=== PATIENT | female | born 1965 | race Caucasian/White ===

== ENCOUNTER 2020-06-29 09:15 | Outpatient (REF) | payer BC, SELFPAY ==
[2020-06-29 10:22] LABS: MANUAL DIFF FLAG NO
[2020-06-29 10:27] LABS: Basophils Percent Auto 0.8 % (0-2); Eosinophils Absolute Auto 0.2 X10*3/uL (0.0-0.4); Eosinophils Percent Auto 3.4 % (0-4); Hematocrit 42.8 % (37-47); Imm Gran Abs Auto 0.01 X10*3/uL (0.00-0.03); Imm Gran Pct Auto 0.2 % (0.0-0.4); Lymphocytes Percent Auto 38.5 % (20-40); Mean Corpuscular HGB Conc 32.7 g/dl (31.0-35.0); Mean Corpuscular Hemoglobin 29.2 pg (27.0-33.0); Mean Corpuscular Volume 89.2 fL (80-98); Mean Platelet Volume 10.1 fL (9.4-12.3); Monocytes Absolute Auto 0.4 X10*3/uL (0.1-1.2); Neutrophils Absolute Auto 2.6 X10*3/uL (2.0-8.3); Neutrophils Percent Auto 49.1 % (45-73); Platelet Count 259 X10*3/uL (160-400); White Blood Count 5.3 X10*3/uL (4.8-10.8)
[2020-06-29 10:52] LABS: Alanine Aminotransferase 84 U/L (0-31); Albumin Level 4.2 g/dL (3.5-5.0); Alkaline Phosphatase 67 U/L (39-117); Anion Gap 13 (12-20); Aspartate Amino Transferase 29 U/L (5-31); Bilirubin Total 0.5 mg/dL (0.0-1.0); Blood Urea Nitrogen 14 mg/dL (9-16); Calcium 8.6 mg/dL (8.4-10.2); Carbon Dioxide 26 mmol/L (22-29); Chloride 105 mmol/L (96-108); Cholesterol 162 mg/dL; Estimated Glomerular Filt Rate > 60; Glucose Fasting 139 mg/dL (60-99); HDL Cholesterol 41 mg/dL; LDL Cholesterol Calculated 89 mg/dl; Potassium 4.5 mmol/l (3.3-5.1); Sodium 139 mmol/L (135-145); Total Protein 7.2 g/dL (6.5-8.0); Triglycerides 160 mg/dL
== END 2020-06-29 09:16 | disposition home or self-care (01) ==
LOC: HO.LAB 09:15
PROVIDERS: PCP Internal Medicine Medical Oncology; Visit Provider Internal Medicine Medical Oncology
DX: K58.9 Irritable bowel syndrome, unspecified (principal); R60.9 Edema, unspecified; E78.5 Hyperlipidemia, unspecified; Z87.19 Personal history of other diseases of the digestive system
CPT/HCPCS: 36415; 80053; 80061; 85025

== ENCOUNTER 2020-10-11 13:44 | Outpatient (REF) | payer BC, SELFPAY ==
[2020-10-11 15:11] LABS: MANUAL DIFF FLAG NO
[2020-10-11 15:22] LABS: Basophils Absolute Auto 0.1 X10*3/uL (0.0-0.2); Basophils Percent Auto 0.7 % (0-2); Eosinophils Absolute Auto 0.1 X10*3/uL (0.0-0.4); Hematocrit 43.2 % (37-47); Hemoglobin 14.1 g/dl (12.0-16.0); Imm Gran Abs Auto 0.04 X10*3/uL (0.00-0.03); Imm Gran Pct Auto 0.6 % (0.0-0.4); Lymphocytes Absolute Auto 2.6 X10*3/uL (1.2-4.9); Lymphocytes Percent Auto 38.1 % (20-40); Mean Corpuscular HGB Conc 32.6 g/dl (31.0-35.0); Mean Corpuscular Hemoglobin 28.9 pg (27.0-33.0); Mean Corpuscular Volume 88.5 fL (80-98); Mean Platelet Volume 10.2 fL (9.4-12.3); Monocytes Absolute Auto 0.5 X10*3/uL (0.1-1.2); Monocytes Percent Auto 7.1 % (2-11); Neutrophils Absolute Auto 3.5 X10*3/uL (2.0-8.3); Neutrophils Percent Auto 51.5 % (45-73); Platelet Count 264 X10*3/uL (160-400); Red Blood Count 4.88 X10*6/uL (4.20-5.50); Red Cell Distribution Width 13.1 % (11.0-16.0); White Blood Count 6.9 X10*3/uL (4.8-10.8)
[2020-10-11 15:31] LABS: Alanine Aminotransferase 33 U/L (0-31); Albumin Level 4.2 g/dL (3.5-5.0); Alkaline Phosphatase 68 U/L (39-117); Anion Gap 14 (12-20); Aspartate Amino Transferase 24 U/L (5-31); Bilirubin Total 0.5 mg/dL (0.0-1.0); Blood Urea Nitrogen 12 mg/dL (9-16); Calcium 9.1 mg/dL (8.4-10.2); Carbon Dioxide 24 mmol/L (22-29); Chloride 104 mmol/L (96-108); Estimated Glomerular Filt Rate > 60; Glucose Random 105 mg/dL (60-115); Potassium 4.2 mmol/L (3.3-5.1); Sodium 138 mmol/L (135-145); Total Protein 7.4 g/dL (6.5-8.0)
[2020-10-11 16:28] LABS: Erythrocyte Sedimentation Rate 23 MM/HR (0-20)
== END 2020-10-11 13:45 | disposition home or self-care (01) ==
LOC: HO.LAB 13:44
PROVIDERS: PCP Internal Medicine Medical Oncology; Visit Provider Internal Medicine Medical Oncology
DX: R10.84 Generalized abdominal pain (principal); K58.9 Irritable bowel syndrome, unspecified
CPT/HCPCS: 36415; 80053; 85025; 85652

== ENCOUNTER 2020-11-29 07:39 | Outpatient (REF) | payer BC, SELFPAY ==
[2020-11-29 08:08] LABS: MANUAL DIFF FLAG NO
[2020-11-29 08:11] LABS: Basophils Absolute Auto 0.1 X10*3/uL (0.0-0.2); Basophils Percent Auto 0.9 % (0-2); Eosinophils Absolute Auto 0.2 X10*3/uL (0.0-0.4); Eosinophils Percent Auto 2.4 % (0-4); Hematocrit 43.1 % (37-47); Hemoglobin 13.9 g/dl (12.0-16.0); Imm Gran Abs Auto 0.02 X10*3/uL (0.00-0.03); Imm Gran Pct Auto 0.3 % (0.0-0.4); Lymphocytes Absolute Auto 2.4 X10*3/uL (1.2-4.9); Lymphocytes Percent Auto 35.9 % (20-40); Mean Corpuscular HGB Conc 32.3 g/dl (31.0-35.0); Mean Corpuscular Hemoglobin 28.9 pg (27.0-33.0); Mean Corpuscular Volume 89.6 fL (80-98); Mean Platelet Volume 9.8 fL (9.4-12.3); Monocytes Absolute Auto 0.5 X10*3/uL (0.1-1.2); Monocytes Percent Auto 7.9 % (2-11); Neutrophils Absolute Auto 3.6 X10*3/uL (2.0-8.3); Neutrophils Percent Auto 52.6 % (45-73); Platelet Count 279 X10*3/uL (160-400); Red Blood Count 4.81 X10*6/uL (4.20-5.50); Red Cell Distribution Width 13.4 % (11.0-16.0); White Blood Count 6.8 X10*3/uL (4.8-10.8)
[2020-11-29 08:50] LABS: Alanine Aminotransferase 42 U/L (0-31); Albumin Level 4.2 g/dL (3.5-5.0); Alkaline Phosphatase 72 U/L (39-117); Anion Gap 13 (12-20); Aspartate Amino Transferase 24 U/L (5-31); Bilirubin Total 0.6 mg/dL (0.0-1.0); Blood Urea Nitrogen 10 mg/dL (9-16); Calcium 9.3 mg/dL (8.4-10.2); Carbon Dioxide 27 mmol/L (22-29); Chloride 104 mmol/L (96-108); Cholesterol 164 mg/dL; Estimated Glomerular Filt Rate > 60; Glucose Fasting 139 mg/dL (60-99); HDL Cholesterol 44 mg/dL; LDL Cholesterol Calculated 94 mg/dl; Potassium 5.1 mmol/L (3.3-5.1); Sodium 139 mmol/L (135-145); Total Protein 7.2 g/dL (6.5-8.0); Triglycerides 131 mg/dL
== END 2020-11-29 07:40 | disposition home or self-care (01) ==
LOC: HO.LAB 07:39
PROVIDERS: PCP Internal Medicine Medical Oncology; Visit Provider Internal Medicine Medical Oncology
DX: K58.9 Irritable bowel syndrome, unspecified (principal); E78.5 Hyperlipidemia, unspecified; E66.01 Morbid (severe) obesity due to excess calories
CPT/HCPCS: 36415; 80053; 80061; 85025

== ENCOUNTER 2021-02-18 09:41 | Outpatient (REF) | payer BC, SELFPAY ==
[2021-02-18 10:53] LABS: Alanine Aminotransferase 36 U/L (0-31); Albumin Level 4.2 g/dL (3.5-5.0); Alkaline Phosphatase 75 U/L (39-117); Anion Gap 12 (12-20); Aspartate Amino Transferase 20 U/L (5-31); Bilirubin Total 0.5 mg/dL (0.0-1.0); Blood Urea Nitrogen 14 mg/dL (9-16); Calcium 9.7 mg/dL (8.4-10.2); Carbon Dioxide 29 mmol/L (22-29); Chloride 104 mmol/L (96-108); Estimated Glomerular Filt Rate > 60; Glucose Fasting 135 mg/dL (60-99); Sodium 140 mmol/L (135-145); Total Protein 7.2 g/dL (6.5-8.0)
[2021-02-18 11:01] LABS: Estimated Average Glucose 169 mg/dL; Hemoglobin A1c % 7.5 %
== END 2021-02-18 09:42 | disposition home or self-care (01) ==
LOC: HO.LAB 09:41
PROVIDERS: PCP Internal Medicine Medical Oncology; Visit Provider Internal Medicine Medical Oncology
DX: K58.9 Irritable bowel syndrome, unspecified (principal); E78.5 Hyperlipidemia, unspecified; E66.01 Morbid (severe) obesity due to excess calories
CPT/HCPCS: 36415; 80053; 83036

== ENCOUNTER 2021-03-01 16:19 | Outpatient (REF) | payer BC, SELFPAY ==
--- NOTE | ~2021-03-01 | MM_ITS ---
EXAMINATION: MM SCREENING DIGITAL BREAST TOMOSYNTHESIS, BILATERAL CLINICAL INFORMATION: Screening. Asymptomatic. The lifetime risk of breast cancer based on the Tyrer-Cuzick Model is 23.5%.%. Additional annual screening with breast MRI may be of benefit in women with a Score of 20% or greater. COMPARISON: Mammography: January 14, 2020 and studies dating back to February 24, 2014 TECHNIQUE: Digital breast tomosynthesis is performed in both the craniocaudal and mediolateral oblique views along with computer-aided detection (CAD). Synthesized 2D images are generated from the tomosynthesis. FINDINGS: There are scattered areas of fibroglandular density (ACR BI-RADS breast composition Category b). There are no significant masses, abnormal calcifications, or other abnormalities. MM/MM tomosynthesis screening BI IMPRESSION: There are no significant changes from prior study. ASSESSMENT: BI-RADS 1: Negative RECOMMENDATION: Routine annual mammography screening. This patient's information was entered into a reminder system with a target due date for their next mammogram.
== END 2021-03-01 16:20 | disposition home or self-care (01) ==
LOC: HO.MAMMO 16:19
PROVIDERS: PCP Internal Medicine Medical Oncology; Visit Provider Obstetrics & Gynecology Gynecology
DX: Z12.31 Encounter for screening mammogram for malignant neoplasm of breast (principal)
CPT/HCPCS: 77063; 77067

== ENCOUNTER 2021-06-05 07:12 | Outpatient (REF) | payer BC, SELFPAY ==
[2021-06-05 07:30] LABS: MANUAL DIFF FLAG NO
[2021-06-05 07:46] LABS: Basophils Percent Auto 0.6 % (0-2); Eosinophils Absolute Auto 0.2 X10*3/uL (0.0-0.4); Eosinophils Percent Auto 2.7 % (0-4); Hematocrit 43.7 % (37.0-47.0); Hemoglobin 14.1 g/dl (12.0-16.0); Imm Gran Abs Auto 0.01 X10*3/uL (0.00-0.03); Imm Gran Pct Auto 0.2 % (0.0-0.4); Lymphocytes Absolute Auto 2.8 X10*3/uL (1.2-4.9); Lymphocytes Percent Auto 45.5 % (20-40); Mean Corpuscular HGB Conc 32.3 g/dl (31.0-35.0); Mean Corpuscular Hemoglobin 28.6 pg (27.0-33.0); Mean Corpuscular Volume 88.6 fL (80.0-98.0); Mean Platelet Volume 10.3 fL (9.4-12.3); Monocytes Absolute Auto 0.5 X10*3/uL (0.1-1.2); Monocytes Percent Auto 7.4 % (2-11); Neutrophils Absolute Auto 2.7 x10*3/uL (2.0-8.3); Neutrophils Percent Auto 43.6 % (45-73); Platelet Count 255 X10*3/uL (160-400); Red Blood Count 4.93 X10*6/uL (4.20-5.50); Red Cell Distribution Width 13.3 % (11.0-16.0); White Blood Count 6.2 X10*3/uL (4.8-10.8)
[2021-06-05 07:55] LABS: Estimated Average Glucose 126 mg/dL
[2021-06-05 08:09] LABS: Alanine Aminotransferase 35 U/L (0-31); Alkaline Phosphatase 66 U/L (39-117); Anion Gap 10 (12-20); Aspartate Amino Transferase 18 U/L (5-31); Bilirubin Total 0.4 mg/dL (0.0-1.0); Blood Urea Nitrogen 14 mg/dL (9-16); Calcium 9.5 mg/dL (8.4-10.2); Carbon Dioxide 29 mmol/L (22-29); Chloride 107 mmol/L (96-108); Cholesterol 163 mg/dL; Estimated Glomerular Filt Rate > 60; Glucose Random 106 mg/dL (60-115); HDL Cholesterol 40 mg/dL; LDL Cholesterol Calculated 94 mg/dl; Potassium 4.4 mmol/L (3.3-5.1); Sodium 142 mmol/L (135-145); Triglycerides 145 mg/dL
== END 2021-06-05 07:13 | disposition home or self-care (01) ==
LOC: HO.LAB 07:12
PROVIDERS: PCP Internal Medicine Medical Oncology; Visit Provider Internal Medicine Medical Oncology
DX: K58.9 Irritable bowel syndrome, unspecified (principal); E78.5 Hyperlipidemia, unspecified; F32.9 Major depressive disorder, single episode, unspecified; E66.01 Morbid (severe) obesity due to excess calories; E11.9 Type 2 diabetes mellitus without complications
CPT/HCPCS: 36415; 80053; 80061; 82043; 83036; 85025

== ENCOUNTER → 2021-08-29 15:07 | Outpatient (BNVA) | payer BC, SELFPAY | PROVIDERS: PCP Internal Medicine Medical Oncology; Visit Provider Nurse Practitioner | DX: Z12.11 Encounter for screening for malignant neoplasm of colon (principal); Z80.0 Family history of malignant neoplasm of digestive organs ==

== ENCOUNTER 2021-09-16 08:57 | Outpatient (REF) | payer BC, SELFPAY ==
[2021-09-16 09:07] LABS: MANUAL DIFF FLAG NO
[2021-09-16 09:26] LABS: Basophils Percent Auto 0.7 % (0-2); Eosinophils Absolute Auto 0.2 X10*3/uL (0.0-0.4); Eosinophils Percent Auto 2.8 % (0-4); Imm Gran Abs Auto 0.01 X10*3/uL (0.00-0.03); Imm Gran Pct Auto 0.2 % (0.0-0.4); Lymphocytes Absolute Auto 2.6 X10*3/uL (1.2-4.9); Lymphocytes Percent Auto 47.6 % (20-40); Mean Corpuscular HGB Conc 31.8 g/dl (31.0-35.0); Mean Corpuscular Hemoglobin 28.5 pg (27.0-33.0); Mean Corpuscular Volume 89.4 fL (80.0-98.0); Mean Platelet Volume 10.5 fL (9.4-12.3); Monocytes Absolute Auto 0.5 X10*3/uL (0.1-1.2); Monocytes Percent Auto 8.7 % (2-11); Neutrophils Absolute Auto 2.2 x10*3/uL (2.0-8.3); Platelet Count 240 X10*3/uL (160-400); Red Blood Count 4.92 X10*6/uL (4.20-5.50); Red Cell Distribution Width 13.6 % (11.0-16.0); White Blood Count 5.4 X10*3/uL (4.8-10.8)
[2021-09-16 09:35] LABS: Estimated Average Glucose 117 mg/dL; Hemoglobin A1c % 5.7 %
[2021-09-16 10:01] LABS: Alanine Aminotransferase 44 U/L (0-31); Alkaline Phosphatase 58 U/L (39-117); Anion Gap 11 (12-20); Aspartate Amino Transferase 21 U/L (5-31); Bilirubin Total 0.6 mg/dL (0.0-1.0); Blood Urea Nitrogen 14 mg/dL (9-16); Calcium 9.3 mg/dL (8.4-10.2); Carbon Dioxide 27 mmol/L (22-29); Chloride 107 mmol/L (96-108); Cholesterol 171 mg/dL; Estimated Glomerular Filt Rate > 60; Glucose Fasting 101 mg/dL (60-99); HDL Cholesterol 41 mg/dL; LDL Cholesterol Calculated 104 mg/dl; Potassium 4.4 mmol/L (3.3-5.1); Sodium 141 mmol/L (135-145); Total Protein 6.9 g/dL (6.5-8.0); Triglycerides 132 mg/dL
== END 2021-09-16 08:58 | disposition home or self-care (01) ==
LOC: HO.LAB 08:57
PROVIDERS: PCP Internal Medicine Medical Oncology; Visit Provider Internal Medicine Medical Oncology
DX: E11.9 Type 2 diabetes mellitus without complications (principal); E78.5 Hyperlipidemia, unspecified
CPT/HCPCS: 36415; 80053; 80061; 83036; 85025

== ENCOUNTER 2022-02-27 07:56 | Day surgery (SDC) | payer BC, SELFPAY ==
[2022-02-22 12:19] VITALS: BMI 37.3
--- NOTE | 2022-02-26 11:46 | P.CONAN_ITS ---
Documented by User: Mona Khan NP 02/26/22 11:50 HPI - Anesthesia Eval Consult details Narrative: 57yo F for Colonoscopy PMFSH Active Problems Active Problems: All Active Problems (Updated 02/22/22 @ 12:17 by Bree Kinney RN) Morbid obesity (Acute) Diabetes (Acute) High cholesterol (Acute) Depression with anxiety (Acute) Panic attacks (Acute) Chronic low back pain with bilateral sciatica (Acute) Ganglion cyst (Acute) Colon cancer screening (Acute) Family history of colon cancer (Acute) Past Medical History Medical History Anxiety Back pain Depression Diabetes Diverticulitis Elevated cholesterol Panic attacks Surgical History Surgical History H/O breast surgery H/O colonoscopy History of back surgery History of surgery Hx of dilation and curettage Social History Social History Patient Tobacco Use Status: Never used Tobacco Use of substances other than those prescribed or required for medical reasons: No Advance Directives: No Advance Directives Information Provided: Yes Recently lost weight without trying: No Meds Allergies Allergy/AdvReac Type Severity Reaction Status Date / Time No Known Allergies Allergy Unverified 08/29/21 15:20 Home Medications Medication Instructions Recorded Confirmed Last Taken Type gabapentin 600 mg tablet,extended 1,800 mg PO QPM 08/29/21 Unknown History release 24 hr (Gralise) metformin 500 mg tablet 500 mg PO DAILY 08/29/21 Unknown History norethindrone acetate 5 mg tablet 5 mg PO DAILY 08/29/21 Unknown History Exam Exam Date and Time: February 26, 2022 1146 Height,Weight and Vital Signs: Height 5 ft 2 in Weight 92.533 kg Pertinent Lab Results Pertinent Lab Results: Laboratory Tests 09/16/21 09/16/21 09:05 09:05 WBC 5.4 Hgb 14.0 Hct 44.0 Plt Count 240 Sodium 141 Potassium 4.4 Chloride 107 Carbon Dioxide 27 BUN 14 Creatinine 0.70 Assessment and Plan Assessment Anesthesia Assessment: Chart Reviewed Documented by User: Ramon Jo MD 02/27/22 09:15 [facility] Past Medical History Medical History Anxiety Back pain Depression Diabetes Diverticulitis Elevated cholesterol Panic attacks Family History Family history of problems with anesthesia: No Surgical History Surgical History H/O breast surgery H/O colonoscopy History of back surgery History of surgery Hx of dilation and curettage History of Problems with Anesthesia: No Social History Social History Patient Tobacco Use Status: Never used Tobacco Use of substances other than those prescribed or required for medical reasons: No Advance Directives: No Advance Directives Information Provided: Yes Recently lost weight without trying: No Meds Allergies Allergy/AdvReac Type Severity Reaction Status Date / Time No Known Allergies Allergy Unverified 08/29/21 15:20 Home Medications Medication Instructions Recorded Confirmed Last Taken Type gabapentin 600 mg tablet,extended 1,800 mg PO QPM 08/29/21 Unknown History release 24 hr (Gralise) metformin 500 mg tablet 500 mg PO DAILY 08/29/21 Unknown History norethindrone acetate 5 mg tablet 5 mg PO DAILY 08/29/21 Unknown History Exam Airway Mallampati Class: III TM Dist: >3cm Neck ROM: Full Loose/Missing/Broken Teeth: No Heart: rrr Lungs: clear Assessment and Plan Final Anesthetic Review Family History of Problems with Anesthesia: No History of Problems with Anesthesia: No ASA Class: II Final Preanesthetic Review: No Changes in Pt Med Stat, Meds/Allgs Chart Reviewed, Consent Obtained/Reviewed and Anes Risks/Benef Reviewed Patient Risk: Intermediate Procedure Risk: Low Anesthetic Plan Anesthetic Plan: MAC: Disposition: Standard PACU
[2022-02-27 08:07] VITALS: BP 137/62; PULSE 77; RESP 16; TEMP 36.6; O2SAT 97; BMI 36.6
--- NOTE | 2022-02-27 08:24 | MHC.SHP ---
Pre-Procedural Eval Section A Date of Service: 02/27/22 Section B Chief Complaint: screenig, fam hx of neoplasm Details of Present Illness: dad with crc Relevant Family History (Specify if Yes): Yes Relevant Social History: None Present Medications: see Short Stay Collaborative assessment Medical History: Significant History (Anxiety Back pain Depression Diabetes Diverticulitis Elevated cholesterol Panic attacks) History of Previous Operations: Relevant previous surgery/procedure and date(s) (Breast reduction bilateral Lumbar discectomy L4-L5 Tonsillectomy & adenoids) Allergies: Allergies Allergy/AdvReac Type Severity Reaction Status Date / Time No Known Allergies Allergy Unverified 08/29/21 15:20 Review of Systems Sugical H&P ROS: Negative: Constitution, Cardiovascular, Respiratory, Neurological, Psychiatric, Hem-Onc, Allergic/Immunologic, Gastrointestinal, Genitourinary, Musculoskeletal, Integumentary, Endocrine and Eyes/Ears/Nose/Throat Exam Surgical H&P Exam: Normal: HEENT (high bmi), Normal: Heart, Normal: Lungs, Normal: Extremities, Normal: Abdomen, Normal: Skin and Normal: Neurological Plan Diagnosis/Plan: Unchanged I have reviewed the history and physical and performed a pertinent physical examination on my patient. No changes have occurred unless specified.
[2022-02-27 08:30] LABS: Glucose, Whole Blood 88 mg/dL (60-115)
--- NOTE | 2022-02-27 08:31 | W.PM.OPN ---
Operative Note Operative Note Date of Service: 02/27/22 Narrative: Operative Information Procedure Description: Colonoscopy Indication: FH of CRC, screening Anesthesia: MAC COLONOSCOPY Instrument: Olympus variable stiffness ADULT scope 190L Colonoscopy Monitoring: Vital signs and clinical assessment, continuous EKG monitoring, Pulse oximetry, Carbon Dioxide monitoring and blood pressure monitoring were done throughout the procedure. Colon withdrawal time was 6 minutes. Procedure: The patient was placed in the left lateral decubitis position and pre-procedure medications were administered. After a digital rectal examination of the ano-rectum, the video colonoscope was inserted into the rectum and advanced through the colon to the cecum/TI. The colonoscope was slowly withdrawn in a retrograde panoramic fashion and the colon mucosa was carefully examined including a retroflexed view of the rectum. Findings and interventions are described below. Procedure Difficulty: easy Findings: Terminal Ileum-normal Right sided retroflexion--normal Cecum:normal Ascending Colon: normal Transverse Colon -normal Descending Colon:normal Sigmoid Colon: normal Rectum: Retroflexion with medium sized internal hemorrhoids, grade I Anorectum - normal Colon preparation: [place] Bowel Preparation Scale Right colon; 3 Transverse colon: 3 Left colon; 3 (0 = Unprepared colon segment with mucosa not seen due to solid stool that cannot be cleared. 1 = Portion of mucosa of the colon segment seen, but other areas of the colon segment not well seen due to staining, residual stool and/or opaque liquid. 2 = Minor amount of residual staining, small fragments of stool and/or opaque liquid, but mucosa of colon segment seen well. 3 = Entire mucosa of colon segment seen well with no residual staining, small fragments of stool or opaque liquid) Impression and Post Procedure Diagnosis: internal hemorrhoids Plan: High fiber diet leaflet Avoid straining at stool, epsom salts and sitz bath, anusol supps or cream Repeat Colonoscopy in 5 years due to FH of CRC or earlier if clinically indicated Above findings were reviewed with the patient and relevant handouts were provided if indicated.
[2022-02-27 09:53] VITALS: BP 107/58; PULSE 75; RESP 26; TEMP 36.1; O2SAT 98
[2022-02-27 10:08] VITALS: BP 130/68; PULSE 66; RESP 19; TEMP 36.3; O2SAT 99
== END 2022-02-27 11:18 | disposition home or self-care (01) ==
PROVIDERS: PCP Internal Medicine Medical Oncology; Visit Provider Internal Medicine Gastroenterology
PROC: 0DJD8ZZ Inspection of Lower Intestinal Tract, Via Natural or Artificial Opening Endoscopic (ICD-10-PCS; CPT 45378; principal; 2022-02-27 09:10)
DX: Z12.11 Encounter for screening for malignant neoplasm of colon (principal); Z80.0 Family history of malignant neoplasm of digestive organs; K64.0 First degree hemorrhoids; K58.9 Irritable bowel syndrome, unspecified; E11.9 Type 2 diabetes mellitus without complications; E78.00 Pure hypercholesterolemia, unspecified; E66.01 Morbid (severe) obesity due to excess calories; Z68.37 Body mass index [BMI] 37.0-37.9, adult; Z87.19 Personal history of other diseases of the digestive system; F32.A Depression, unspecified; F41.0 Panic disorder [episodic paroxysmal anxiety]; Z98.890 Other specified postprocedural states; Z79.84 Long term (current) use of oral hypoglycemic drugs; Z79.899 Other long term (current) drug therapy
CPT/HCPCS: 45378; 82947

== ENCOUNTER 2022-03-05 16:10 | Outpatient (REF) | payer BC, SELFPAY ==
--- NOTE | ~2022-03-05 | MM_ITS ---
EXAMINATION: MM SCREENING DIGITAL BREAST TOMOSYNTHESIS, BILATERAL CLINICAL INFORMATION: Screening. Asymptomatic. Family history breast cancer, sister. Personal history reduction mammoplasty, 2011. The lifetime risk of breast cancer based on the Tyrer-Cuzick Model is 22%. COMPARISON: Mammography: 03/01/2021, 01/14/2020, 03/05/2018 TECHNIQUE: Digital breast tomosynthesis is performed in both the craniocaudal and mediolateral oblique views along with computer-aided detection (CAD). Synthesized 2D images are generated from the tomosynthesis. FINDINGS: There are scattered areas of fibroglandular density (ACR BI-RADS breast composition Category b). There are no significant masses, abnormal calcifications, or other abnormalities. There is no interval developing density or architectural abnormality or abnormal calcifications. The fat necrosis posterior upper right breast has continued to regress over time since 2018. The axilla and skin contours are unremarkable. MM/MM tomosynthesis screening BI IMPRESSION: No mammographic evidence of malignancy. ASSESSMENT: BI-RADS 2: Benign RECOMMENDATION: Routine annual mammography screening. This patient's information was entered into a reminder system with a target due date for their next mammogram.
== END 2022-03-05 16:11 | disposition home or self-care (01) ==
LOC: HO.MAMMO 16:10
PROVIDERS: PCP Internal Medicine Medical Oncology; Visit Provider Internal Medicine Medical Oncology
DX: Z12.31 Encounter for screening mammogram for malignant neoplasm of breast (principal)
CPT/HCPCS: 77063; 77067

== ENCOUNTER 2022-04-03 08:05 | Outpatient (REF) | payer BC, SELFPAY ==
[2022-04-03 08:17] LABS: MANUAL DIFF FLAG NO
[2022-04-03 08:41] LABS: Basophils Absolute Auto 0.1 X10*3/uL (0.0-0.2); Basophils Percent Auto 1.3 % (0-2); Eosinophils Absolute Auto 0.1 X10*3/uL (0.0-0.4); Eosinophils Percent Auto 1.5 % (0-4); Hematocrit 42.4 % (37.0-47.0); Hemoglobin 13.9 g/dl (12.0-16.0); Imm Gran Abs Auto 0.01 X10*3/uL (0.00-0.03); Imm Gran Pct Auto 0.2 % (0.0-0.4); Lymphocytes Absolute Auto 2.5 X10*3/uL (1.2-4.9); Mean Corpuscular HGB Conc 32.8 g/dl (31.0-35.0); Mean Corpuscular Hemoglobin 28.8 pg (27.0-33.0); Mean Platelet Volume 10.2 fL (9.4-12.3); Monocytes Absolute Auto 0.4 X10*3/uL (0.1-1.2); Monocytes Percent Auto 7.7 % (2-11); Neutrophils Absolute Auto 2.4 x10*3/uL (2.0-8.3); Neutrophils Percent Auto 43.3 % (45-73); Platelet Count 268 X10*3/uL (160-400); Red Blood Count 4.82 X10*6/uL (4.20-5.50); White Blood Count 5.4 X10*3/uL (4.8-10.8)
[2022-04-03 08:50] LABS: Estimated Average Glucose 117 mg/dL; Hemoglobin A1c % 5.7 %
[2022-04-03 09:03] LABS: Alanine Aminotransferase 30 U/L (0-31); Albumin Level 4.3 g/dL (3.5-5.0); Alkaline Phosphatase 50 U/L (39-117); Anion Gap 15 (12-20); Aspartate Amino Transferase 20 U/L (5-31); Bilirubin Total 0.6 mg/dL (0.0-1.0); Blood Urea Nitrogen 18 mg/dL (9-16); Calcium 9.6 mg/dL (8.4-10.2); Carbon Dioxide 26 mmol/L (22-29); Chloride 105 mmol/L (96-108); Cholesterol 174 mg/dL; Estimated Glomerular Filt Rate > 60; Glucose Fasting 103 mg/dL (60-99); HDL Cholesterol 43 mg/dL; LDL Cholesterol Calculated 113 mg/dl; Sodium 141 mmol/L (135-145); Total Protein 7.2 g/dL (6.5-8.0); Triglycerides 90 mg/dL
[2022-04-03 09:14] LABS: Creatinine Urine 159.01 mg/dL; Microalbum/Creatinine Ratio Ur 5.6 ug/mg cr
== END 2022-04-03 08:06 | disposition home or self-care (01) ==
LOC: HO.LAB 08:05
PROVIDERS: PCP Internal Medicine Medical Oncology; Visit Provider Internal Medicine Medical Oncology
DX: E11.9 Type 2 diabetes mellitus without complications (principal); E66.9 Obesity, unspecified; E78.5 Hyperlipidemia, unspecified
CPT/HCPCS: 36415; 80053; 80061; 82043; 83036; 85025

== ENCOUNTER 2022-10-20 09:28 | Outpatient (REF) | payer BC, SELFPAY ==
[2022-10-20 09:42] LABS: MANUAL DIFF FLAG NO
[2022-10-20 10:33] LABS: Basophils Absolute Auto 0.1 X10*3/uL (0.0-0.2); Basophils Percent Auto 1.2 % (0-2); Eosinophils Absolute Auto 0.3 X10*3/uL (0.0-0.4); Eosinophils Percent Auto 4.8 % (0-4); Hematocrit 43.4 % (37.0-47.0); Hemoglobin 14.2 g/dl (12.0-16.0); Imm Gran Abs Auto 0.02 X10*3/uL (0.00-0.03); Imm Gran Pct Auto 0.3 % (0.0-0.4); Lymphocytes Absolute Auto 2.7 X10*3/uL (1.2-4.9); Lymphocytes Percent Auto 45.5 % (20-40); Mean Corpuscular HGB Conc 32.7 g/dl (31.0-35.0); Mean Corpuscular Hemoglobin 29.3 pg (27.0-33.0); Mean Corpuscular Volume 89.7 fL (80.0-98.0); Mean Platelet Volume 10.5 fL (9.4-12.3); Monocytes Absolute Auto 0.4 X10*3/uL (0.1-1.2); Monocytes Percent Auto 7.5 % (2-11); Neutrophils Absolute Auto 2.4 x10*3/uL (2.0-8.3); Neutrophils Percent Auto 40.7 % (45-73); Platelet Count 239 X10*3/uL (160-400); Red Blood Count 4.84 X10*6/uL (4.20-5.50); Red Cell Distribution Width 12.9 % (11.0-16.0); White Blood Count 5.8 X10*3/uL (4.8-10.8)
[2022-10-20 10:40] LABS: Estimated Average Glucose 114 mg/dL; Hemoglobin A1c % 5.6 %
[2022-10-20 11:14] LABS: Alanine Aminotransferase 30 U/L (0-31); Albumin Level 4.1 g/dL (3.5-5.0); Alkaline Phosphatase 59 U/L (39-117); Anion Gap 12 (12-20); Aspartate Amino Transferase 18 U/L (5-31); Bilirubin Total 0.6 mg/dL (0.0-1.0); Blood Urea Nitrogen 17 mg/dL (9-16); Calcium 9.3 mg/dL (8.4-10.2); Carbon Dioxide 27 mmol/L (22-29); Chloride 107 mmol/L (96-108); Cholesterol 187 mg/dL; Estimated Glomerular Filt Rate > 60; Glucose Fasting 90 mg/dL (60-99); HDL Cholesterol 50 mg/dL; LDL Cholesterol Calculated 114 mg/dl; Potassium 4.7 mmol/L (3.3-5.1); Sodium 141 mmol/L (135-145); Total Protein 6.9 g/dL (6.5-8.0); Triglycerides 119 mg/dL
== END 2022-10-20 09:29 | disposition home or self-care (01) ==
LOC: HO.LAB 09:28
PROVIDERS: PCP Internal Medicine Medical Oncology; Visit Provider Internal Medicine Medical Oncology
DX: Z00.00 Encounter for general adult medical examination without abnormal findings (principal); E78.5 Hyperlipidemia, unspecified; E11.9 Type 2 diabetes mellitus without complications; E66.9 Obesity, unspecified
CPT/HCPCS: 36415; 80053; 80061; 83036; 85025

== ENCOUNTER 2023-03-02 08:04 | Outpatient (REF) | payer BC, SELFPAY ==
[2023-03-02 08:41] LABS: MANUAL DIFF FLAG NO
[2023-03-02 08:55] LABS: Basophils Absolute Auto 0.1 X10*3/uL (0.0-0.2); Basophils Percent Auto 1.1 % (0-2); Eosinophils Absolute Auto 0.1 X10*3/uL (0.0-0.4); Eosinophils Percent Auto 2.1 % (0-4); Hematocrit 43.2 % (37.0-47.0); Hemoglobin 14.1 g/dl (12.0-16.0); Imm Gran Abs Auto 0.01 X10*3/uL (0.00-0.03); Imm Gran Pct Auto 0.2 % (0.0-0.4); Lymphocytes Absolute Auto 2.3 X10*3/uL (1.2-4.9); Lymphocytes Percent Auto 43.3 % (20-40); Mean Corpuscular HGB Conc 32.6 g/dl (31.0-35.0); Mean Corpuscular Hemoglobin 29.4 pg (27.0-33.0); Monocytes Absolute Auto 0.5 X10*3/uL (0.1-1.2); Monocytes Percent Auto 8.7 % (2-11); Neutrophils Absolute Auto 2.4 x10*3/uL (2.0-8.3); Neutrophils Percent Auto 44.6 % (45-73); Platelet Count 236 X10*3/uL (160-400); White Blood Count 5.3 X10*3/uL (4.8-10.8)
[2023-03-02 09:27] LABS: Alanine Aminotransferase 36 U/L (0-31); Albumin Level 4.2 g/dL (3.5-5.0); Alkaline Phosphatase 58 U/L (39-117); Anion Gap 14 (12-20); Aspartate Amino Transferase 22 U/L (5-31); Bilirubin Total 0.7 mg/dL (0.0-1.0); Blood Urea Nitrogen 15 mg/dL (9-16); Calcium 9.5 mg/dL (8.4-10.2); Carbon Dioxide 26 mmol/L (22-29); Chloride 106 mmol/L (96-108); Cholesterol 181 mg/dL (<200); Estimated Glomerular Filt Rate > 60; Glucose Random 105 mg/dL (60-115); HDL Cholesterol 46 mg/dL (>40); LDL Cholesterol Calculated 111 mg/dL (<100); Potassium 4.7 mmol/L (3.3-5.1); Sodium 141 mmol/L (135-145); Total Protein 7.5 g/dL (6.5-8.0); Triglycerides 124 mg/dL (<150)
[2023-03-02 09:58] LABS: Creatinine Urine 158.74 mg/dL; Microalbum/Creatinine Ratio Ur 4.4 ug/mg cr (<30)
[2023-03-02 10:59] LABS: Estimated Average Glucose 114 mg/dL; Hemoglobin A1c % 5.6 % (<6.0)
== END 2023-03-02 08:05 | disposition home or self-care (01) ==
LOC: HO.LAB 08:04
PROVIDERS: PCP Internal Medicine Medical Oncology; Visit Provider Internal Medicine Medical Oncology
DX: Z00.00 Encounter for general adult medical examination without abnormal findings (principal); E78.5 Hyperlipidemia, unspecified; E11.9 Type 2 diabetes mellitus without complications; E66.9 Obesity, unspecified
CPT/HCPCS: 36415; 80053; 80061; 82043; 82570; 83036; 85025

== ENCOUNTER 2023-04-11 08:41 | Outpatient (REF) | payer BC, SELFPAY | END 2023-04-11 08:42 | disposition home or self-care (01) | LOC: HO.MAMMO 08:41 | PROVIDERS: PCP Internal Medicine Medical Oncology; Visit Provider Internal Medicine Medical Oncology | DX: Z12.31 Encounter for screening mammogram for malignant neoplasm of breast (principal) | CPT/HCPCS: 77063; 77067 ==

== ENCOUNTER → 2023-04-11 08:45 | Outpatient (BNV) | payer BC, SELFPAY | PROVIDERS: PCP Internal Medicine Medical Oncology; Visit Provider Radiology Diagnostic Radiology | DX: Z12.31 Encounter for screening mammogram for malignant neoplasm of breast (principal) | CPT/HCPCS: 77063; 77067 ==

== ENCOUNTER 2023-05-14 08:05 | Outpatient (AMB) | payer BC, SELFPAY ==
--- NOTE | 2023-05-14 08:09 | A.OFFVIS_ITS ---
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 The patient describes her pain as sharp in nature. She did injure her left knee several years ago when she twisted it while walking. Since that time her symptoms have gotten worse in spite of continued non operative treatments. She has done physical therapy for 12 weeks over the last 6 months as well as for 6 weeks over the last 3 months which gave her minimal relief. She has had injections in the past which gave her no relief. She takes Tylenol and Aleve which gave her only mild relief. She states that her left knee will give out several times per day. Allergies No Known Allergies Allergy (Verified 03/13/22 08:40) Medication List - Last Reconciled 05/14/23 by Toño Gonzales MD gabapentin ER (Gralise) 600 mg PO QPM metformin 500 mg PO DAILY multivitamin 1 tab PO DAILY PFSH Medical History (Updated 05/13/23 @ 11:40 by Toño Gonzales MD) Elevated cholesterol Panic attacks Anxiety Depression Diabetes Back pain Diverticulitis Surgical History (Updated 05/14/23 @ 08:21 by Leslie Milian CMA) H/O left wrist surgery H/O colonoscopy Hx of dilation and curettage History of surgery History of back surgery H/O breast surgery Social History (Updated 05/14/23 @ 08:21 by Leslie Milian CMA) Patient Tobacco Use Status: Never used Tobacco Current occupational status: employed 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 [employer] Physical Exam Vital Signs: BMI result Body Mass Index 38.0 Const Other: Well-nourished well-developed very friendly female awake alert and oriented x3 in no acute distress Extrem Other: Bilateral lower extremity examination shows good capillary refill, no skin lesions noted, normal sensation light touch Left knee examination shows a minimal effusion, minimal crepitus with range of m otion, tenderness along her medial joint line, positive Jemal's test, no instability Results Reviewed Results Reviewed: Standing full weight-bearing x-rays of the patient's left knee show minimal diffuse joint space narrowing, no acute bony abnormalities Assessment & Plan Assessment & Plan (1) Left knee pain: Code(s): M25.562 - Pain in left knee Plan Ms. Roque presents with progressively worsening left knee pain and mechanical symptoms most likely due to a tear of her medial meniscus. Thus, I will send the patient for an MRI of her left knee for further evaluation. I will see her back once the MRI is completed to discuss the findings and treatment options. She will continue with her activity modifications in the meantime. Feel free to call me at any time should questions regarding her orthopedic management arise. Thank you very much for asking me to see this very friendly patient. I spent 22 minutes in reviewing the patient's records and imaging studies, se eing the patient and documenting in the medical record. Orders: Orders MR knee LT wo con Today M25.562 - Pain in left knee XR knee LT 3V Today M25.562 - Pain in left knee Coding Level of Care Code New Pt Level 2 (40967) Diagnoses Left knee pain M25.562
[2023-05-14 08:18] VITALS: BMI 38.0
== END 2023-05-14 08:32 | disposition home or self-care (01) ==
PROVIDERS: PCP Internal Medicine Medical Oncology; Visit Provider Orthopaedic Surgery
DX: M25.562 Pain in left knee (principal)
CPT/HCPCS: 99202

== ENCOUNTER 2023-05-14 09:06 | Outpatient (REF) | payer BC, SELFPAY ==
--- NOTE | ~2023-05-14 | XR_ITS ---
EXAMINATION: XR KNEE, LEFT CLINICAL INFORMATION: Left knee pain COMPARISON: Left knee 12/01/2014 and bilateral AP knees 03/12/2017 TECHNIQUE: Four views of the left knee. FINDINGS: Degenerative changes are seen predominantly in the medial and patellofemoral compartment with narrowing and osteophytes. A small joint effusion is present. No fractures or chondrocalcinosis seen. Densities in the subcutaneous fat most likely represent large serpiginous varices arising from the refluxing great saphenous vein. Please correlate with physical exam XR/XR knee LT 3V IMPRESSION: 1. Bicompartmental degenerative changes with small joint effusion. 2. 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
== END 2023-05-14 09:07 | disposition home or self-care (01) ==
LOC: HO.HOSX 09:06
PROVIDERS: Visit Provider Orthopaedic Surgery
DX: M25.562 Pain in left knee (principal)
CPT/HCPCS: 73562

== ENCOUNTER 2023-06-08 09:37 | Outpatient (REF) | payer BC, SELFPAY ==
[2023-06-08 09:56] LABS: MANUAL DIFF FLAG NO
[2023-06-08 10:08] LABS: Basophils Absolute Auto 0.1 X10*3/uL (0.0-0.2); Basophils Percent Auto 0.9 % (0-2); Eosinophils Absolute Auto 0.1 X10*3/uL (0.0-0.4); Eosinophils Percent Auto 2.4 % (0-4); Hematocrit 42.8 % (37.0-47.0); Hemoglobin 14.2 g/dl (12.0-16.0); Imm Gran Abs Auto 0.02 X10*3/uL (0.00-0.03); Imm Gran Pct Auto 0.4 % (0.0-0.4); Lymphocytes Absolute Auto 2.2 X10*3/uL (1.2-4.9); Lymphocytes Percent Auto 40.5 % (20-40); Mean Corpuscular HGB Conc 33.2 g/dl (31.0-35.0); Mean Corpuscular Hemoglobin 29.3 pg (27.0-33.0); Mean Corpuscular Volume 88.2 fL (80.0-98.0); Mean Platelet Volume 9.8 fL (9.4-12.3); Monocytes Absolute Auto 0.4 X10*3/uL (0.1-1.2); Neutrophils Absolute Auto 2.6 x10*3/uL (2.0-8.3); Neutrophils Percent Auto 47.8 % (45-73); Platelet Count 243 X10*3/uL (160-400); Red Blood Count 4.85 X10*6/uL (4.20-5.50); Red Cell Distribution Width 13.2 % (11.0-16.0); White Blood Count 5.5 X10*3/uL (4.8-10.8)
[2023-06-08 10:28] LABS: Alanine Aminotransferase 28 U/L (0-31); Albumin Level 4.1 g/dL (3.5-5.0); Alkaline Phosphatase 61 U/L (39-117); Anion Gap 13 (12-20); Aspartate Amino Transferase 20 U/L (5-31); Bilirubin Total 0.5 mg/dL (0.0-1.0); Blood Urea Nitrogen 15 mg/dL (9-16); Calcium 9.3 mg/dL (8.4-10.2); Carbon Dioxide 26 mmol/L (22-29); Chloride 105 mmol/L (96-108); Cholesterol 204 mg/dL (<200); Estimated Glomerular Filt Rate > 60; Glucose Fasting 107 mg/dL (60-99); HDL Cholesterol 49 mg/dL (>40); LDL Cholesterol Calculated 128 mg/dL (<100); Potassium 4.3 mmol/L (3.3-5.1); Sodium 140 mmol/L (135-145); Total Protein 7.6 g/dL (6.5-8.0); Triglycerides 139 mg/dL (<150)
[2023-06-08 10:39] LABS: Rheumatoid Factor < 13.0 IU/mL (<15.0)
[2023-06-08 10:44] LABS: Estimated Average Glucose 114 mg/dL; Hemoglobin A1c % 5.6 % (<6.0)
[2023-06-08 11:04] LABS: Creatinine Urine 66.04 mg/dL; Microalbumin Urine < 5.0 mg/L
== END 2023-06-08 09:38 | disposition home or self-care (01) ==
LOC: HO.LAB 09:37
PROVIDERS: PCP Internal Medicine Medical Oncology; Visit Provider Internal Medicine Medical Oncology
DX: E78.5 Hyperlipidemia, unspecified (principal); E11.9 Type 2 diabetes mellitus without complications; M54.16 Radiculopathy, lumbar region
CPT/HCPCS: 36415; 80053; 80061; 82043; 82570; 83036; 85025; 86431

== ENCOUNTER 2023-06-13 14:15 | Outpatient (REF) | payer BC, SELFPAY | END 2023-06-13 14:16 | disposition home or self-care (01) | LOC: HO.MRI 14:15 | PROVIDERS: PCP Internal Medicine Medical Oncology; Visit Provider Orthopaedic Surgery | DX: M25.562 Pain in left knee (principal) | CPT/HCPCS: 73721 ==

== ENCOUNTER 2023-06-19 08:05 | Outpatient (AMB) | payer BC, SELFPAY ==
--- NOTE | 2023-06-19 08:06 | MHC.OFFVIS ---
Intake Vital Signs 06/19/23 08:07 Height 5 ft 2 in Weight 208 lb BMI 38.0 Intake Visit Reasons: OV- left knee MRI Review Intake Note: Lin is a 58 year old female who presents with complaints of left knee pain and giving way. The patient describes her pain as sharp in nature. She did injure her left knee several years ago when she twisted it while walking. Since that time her symptoms have gotten worse in spite of continued non operative treatments. She has done physical therapy for 12 weeks over the last 6 months as well as for 6 weeks over the last 3 months which gave her minimal relief. She has had injections in the past which gave her no relief. She takes Tylenol and Aleve which gave her only mild relief. She states that her left knee will give out several times per day. 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 [employer] Physical Exam Vital Signs: BMI result Body Mass Index 38.0 Const Other: Well-nourished well-developed very friendly female awake alert and oriented x3 in no acute distress Extrem Other: Bilateral lower extremity examination shows good capillary refill, no skin lesions noted, normal sensation light touch Left knee examination shows a mild effusion, minimal crepitus with range of motion, tenderness medial joint line, positive Jemal's test, no instability Results Reviewed Results Reviewed: Standing full weight-bearing x-rays of the patient's left knee show diffuse grade 1 [place] joint space narrowing, no acute bony abnormalities MRI of the patient's left knee shows mild diffuse degenerative changes as well as a tear of the medial meniscus, no acute bony abnormalities Assessment & Plan Assessment & Plan (1) Tear of medial meniscus of left knee: Code(s): S83.242A - Other tear of medial meniscus, current injury, left knee, initial encounter Plan Ms. Roque presents with progressively worsening left knee pain and mechanical symptoms due to a tear of her medial meniscus. I had a lengthy discussion with the patient regarding the treatment options. At this point she has failed continued non operative treatments. The risks and benefits of left knee arthroscopic surgery were discussed at length with the patient. The patient wishes to proceed with surgery. Surgery will most likely involve left knee diagnostic arthroscopy with partial medial meniscectomy. The patient does understand that she may not get 100% relief of her symptoms depending on the severity of her degenerative changes. The patient will follow-up as instructed. Feel free to call me at any time should questions regarding her orthopedic management arise. I spent 22 minutes in reviewing the patient's records and imaging studies, seeing the patient and documenting in the medical record. Coding Level of Care Code Est Pt Level 2 (68864) Diagnoses Tear of medial meniscus of left knee S83.242A
[2023-06-19 08:07] VITALS: BMI 38.0
== END 2023-06-19 08:23 | disposition home or self-care (01) ==
PROVIDERS: PCP Internal Medicine Medical Oncology; Referring Provider Internal Medicine Medical Oncology; Visit Provider Orthopaedic Surgery
DX: S83.242A Other tear of medial meniscus, current injury, left knee, initial encounter (principal)
CPT/HCPCS: 99213

== ENCOUNTER → 2023-06-19 08:05 | Outpatient (BNVA) | payer BC, SELFPAY | PROVIDERS: PCP Internal Medicine Medical Oncology; Visit Provider Orthopaedic Surgery ==

== ENCOUNTER 2023-07-05 05:58 | Day surgery (SDC) | payer BC, SELFPAY ==
[2023-07-03 12:02] VITALS: BMI 38.0
[2023-07-03 15:48] VITALS: BMI 39.0
--- NOTE | 2023-07-04 09:10 | P.CONAN_ITS ---
Documented by User: Mona Khan NP 07/04/23 09:11 HPI - Anesthesia Eval Consult details Narrative: 58yo F for Left Knee Arthroscopy, partial medial meniscetomy, PMFSH Active Problems Active Problems: All Active Problems (Updated 07/03/23 @ 15:46 by Kay Coles RN) Tear of medial meniscus of left knee (Acute) Left knee pain (Acute) Family history of colon cancer (Acute) Colon cancer screening (Acute) Ganglion cyst (Acute) Chronic low back pain with bilateral sciatica (Acute) Panic attacks (Acute) Depression with anxiety (Acute) High cholesterol (Acute) Diabetes (Acute) Morbid obesity (Acute) Past Medical History Medical History Arthritis Lumbar stenosis IBS (irritable bowel syndrome) GERD (gastroesophageal reflux disease) Kidney stone on left side OAB (overactive bladder) Elevated cholesterol Panic attacks Anxiety Depression Diabetes Back pain Diverticulitis Family History Family history of problems with anesthesia: No Surgical History Surgical History H/O left wrist surgery H/O colonoscopy Hx of dilation and curettage History of surgery History of back surgery H/O breast surgery History of Problems with Anesthesia: No Social History Social History Are you a primary care management coordinator to a significant other at home: No Do you presently have visiting nurse or other home services: No Patient Tobacco Use Status: Former Tobacco user Quit Date: Tobacco use type: Cigarette Use of substances other than those prescribed or required for medical reasons: No Have you been hit, kicked, punched, or otherwise hurt by someone within the past year? 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 [employer] Meds Allergies Allergy/AdvReac Type Severity Reaction Status Date / Time No Known Allergies Allergy Verified 07/05/23 06:08 Active Medications: Current Medications Cefazolin Sodium/Dextrose (Ancef) 2 gm in 50 mls @ 100 mls/hr IV PREOP ONE Stop: 07/05/23 05:30 Home Medications Medication Instructions Recorded Confirmed Last Taken Type metformin 500 mg tablet 500 mg PO DAILY 08/29/21 07/05/23 07/04/23 History gabapentin 600 mg tablet,extended 1,200 mg PO QPM 03/13/22 07/03/23 Unknown History release 24 hr (Gralise) multivitamin 1 tab PO DAILY 03/13/22 07/03/23 Unknown History trospium 20 mg tablet 20 mg PO BID 06/19/23 07/03/23 Unknown History Mylanta PRN Gastric Reflux 07/03/23 07/03/23 Unknown History apple cider vinegar 3 cap PO DAILY 07/03/23 07/05/23 Unknown History Exam Height,Weight and Vital Signs: Height 5 ft 2 in Weight 96.615 kg Pertinent Lab Results Pertinent Lab Results: Laboratory Tests 06/08/23 09:54 WBC 5.5 Hgb 14.2 Hct 42.8 Plt Count 243 Sodium 140 Potassium 4.3 Chloride 105 Carbon Dioxide 26 BUN 15 Creatinine 0.69 Assessment and Plan Assessment Anesthesia Assessment: Chart Reviewed Final Anesthetic Review Family History of Problems with Anesthesia: No History of Problems with Anesthesia: No Documented by User: Allie Wiggins MD 07/05/23 07:29 [facility] Past Medical History Medical History Arthritis Lumbar stenosis IBS (irritable bowel syndrome) GERD (gastroesophageal reflux disease) Kidney stone on left side OAB (overactive bladder) Elevated cholesterol Panic attacks Anxiety Depression Diabetes Back pain Diverticulitis Surgical History Surgical History H/O left wrist surgery H/O colonoscopy Hx of dilation and curettage History of surgery History of back surgery H/O breast surgery Social History Social History Are you a primary care management coordinator to a significant other at home: No Do you presently have visiting nurse or other home services: No Patient Tobacco Use Status: Former Tobacco user Quit Date: Tobacco use type: Cigarette Use of substances other than those prescribed or required for medical reasons: No Have you been hit, kicked, punched, or otherwise hurt by someone within the past year? 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 [employer] Meds Allergies Allergy/AdvReac Type Severity Reaction Status Date / Time No Known Allergies Allergy Verified 07/05/23 06:08 Home Medications Medication Instructions Recorded Confirmed Last Taken Type metformin 500 mg tablet 500 mg PO DAILY 08/29/21 07/05/23 07/04/23 History gabapentin 600 mg tablet,extended 1,200 mg PO QPM 03/13/22 07/03/23 Unknown History release 24 hr (Gralise) multivitamin 1 tab PO DAILY 03/13/22 07/03/23 Unknown History trospium 20 mg tablet 20 mg PO BID 06/19/23 07/03/23 Unknown History Mylanta PRN Gastric Reflux 07/03/23 07/03/23 Unknown History apple cider vinegar 3 cap PO DAILY 07/03/23 07/05/23 Unknown History Exam Airway Mallampati Class: II TM Dist: >3cm Neck ROM: Full Heart: rrr Lungs: cta Assessment and Plan Assessment Anesthesia Assessment: Anesthesia Plan Discussed Final Anesthetic Review NPO: Yes ASA Class: III Final Preanesthetic Review: No Changes in Pt Med Stat, Meds/Allgs Chart Reviewed, Consent Obtained/Reviewed and Anes Risks/Benef Reviewed Patient Risk: Intermediate Procedure Risk: Low Anesthetic Plan Anesthetic Plan: GA Disposition: Standard PACU
[2023-07-05] VITALS (10 sets, daily range): BP systolic 123–168; BP diastolic 62–87; PULSE 71–84; RESP 10–18; TEMP 36.1–36.5; O2SAT 95–98; BMI 39.2
[2023-07-05 06:23] LABS: Glucose, Whole Blood 100 mg/dL (60-115)
[2023-07-05] MEDS: Lactated Ringers 1,000 ML 100 ML IVCONT (06:42)
--- NOTE | 2023-07-05 08:43 | P.BOP_ITS ---
Brief Operative Note Date of Service: 07/05/23 Pre-op diagnosis: Left knee medial meniscus tear, left knee degenerative joint disease Post-op diagnosis: same Procedure: Left knee diagnostic arthroscopy with left knee arthroscopic partial medial meniscectomy, left knee arthroscopic chondroplasty of the undersurface of the patella and medial femoral condyle Implants: none Surgeon: Toño Gonzales MD Anesthesia: GLMA Was an Security Services Specialist used for this Procedure?: No Estimated blood loss (mL): 10 Pathology: none sent Condition: stable Disposition: PACU
--- NOTE | 2023-07-05 08:44 | P.OP_ITS ---
Operative Note Operative Note Date of Service: 07/05/23 Narrative: After the patient was identified as Lin Roque and her left knee was initialed by myself they were brought to the operating room where general anesthesia was induced by the anesthesiologist in routine fashion. The patient was given 2 g of IV Ancef preoperatively for infection prophylaxis. The patient's left lower extremity was prepped and draped in sterile fashion. A formal time-out was completed. Marcaine was injected into the planned incision sites as well as the patient's left knee joint. A #11 scalpel blade was used to make an anterolateral portal 1 cm proximal to the joint line and 1 cm lateral to the p atellar tendon. Blunt trocar technique was used to enter the suprapatellar pouch with the knee in extension. Diagnostic arthroscopy showed multiple bands of thickened plica which would be excised at the end of the procedure. There were no loose bodies or abnormalities found in either the medial or lateral gutters. The articular surface of the patella showed diffuse grades 2 and 3 degenerative changes. The trochlear groove articular surface showed diffuse grade 2 degenerative changes. The patient's knee was flexed to 45 degrees and a valgus force was placed upon it. The medial compartment was entered. An anteromedial portal was made 1 cm proximal to the joint line and 1 cm medial to the patellar tendon. Probing of the medial meniscus showed a radial tear of the posterior horn. A partial medial meniscectomy was performed using the arthroscopic shaver. Following the partial meniscectomy the remainder of the meniscus tissue was stable. There were diffuse grades 2 and 3 degenerative changes of the medial femoral condyle as well as grade 1 degenerative changes of the medial tibial plateau. The articular surface of the medial femoral condyle was then made smooth using the arthroscopic shaver. The articular surface of the medial tibial plateau was already smooth so no chondroplasty was indicated. The patient's knee was placed into a neutral position. There was no injury to the anterior cruciate ligament. The patient's knee was then placed in the figure of 4 position and the lateral compartment was entered. There was no evidence of lateral meniscus tearing. There were minimal degenerative changes of the lateral femoral condyle and lateral tibial plateau. The patient's knee was once again brought into extension and the suprapatellar pouch was entered. The arthroscopic shaver and the ArthroCare Wand were used to excise the thickened bands of plica. The undersurface of the patella was then made smooth using the arthroscopic shaver. The articular surface of the trochlear groove was already smooth so no chondroplasty was indicated. The knee joint was irrigated and then drained. All arthroscopic instruments were removed. The 2 portals were closed with 3-0 nylon interrupted suture. The knee joint was injected with Marcaine. Dry sterile dressing and Madi bandages were placed over the patient's knee. The patient was awoken and extubated in the operating room. The patient was transferred to the recovery room in stable condition.
[2023-07-05] MEDS: oxyCODONE HCl Immed Release 5 MG TABLET PO (09:17)
[2023-07-05] MEDS: cefTRIAXone sodium 1 GM in 0.9 % Sodium Chloride 50 ML IV (09:20)
== END 2023-07-05 11:15 | disposition home or self-care (01) ==
PROVIDERS: PCP Internal Medicine Medical Oncology; Visit Provider Orthopaedic Surgery
PROC: (CPT 29870; principal; 2023-07-05 07:30)
DX: S83.242A Other tear of medial meniscus, current injury, left knee, initial encounter (principal); M17.12 Unilateral primary osteoarthritis, left knee; M67.52 Plica syndrome, left knee; M23.52 Chronic instability of knee, left knee; X50.1XXA Overexertion from prolonged static or awkward postures, initial encounter; Y93.01 Activity, walking, marching and hiking; Y92.9 Unspecified place or not applicable; Y99.8 Other external cause status; F41.0 Panic disorder [episodic paroxysmal anxiety]; F32.A Depression, unspecified; E78.00 Pure hypercholesterolemia, unspecified; E11.9 Type 2 diabetes mellitus without complications; Z79.84 Long term (current) use of oral hypoglycemic drugs; Z79.899 Other long term (current) drug therapy; Z98.890 Other specified postprocedural states
CPT/HCPCS: 29881; 82947; J0171; J0690; J0696; J1885; J2250; J2405; J2704; J2795; J3010

== ENCOUNTER → 2023-07-05 05:58 | Outpatient (BNV) | payer BC, SELFPAY | PROVIDERS: PCP Internal Medicine Medical Oncology; Visit Provider Orthopaedic Surgery | DX: S83.242A Other tear of medial meniscus, current injury, left knee, initial encounter (principal) | CPT/HCPCS: 29881 ==

== ENCOUNTER 2023-07-18 08:48 | Outpatient (AMB) | payer BC, SELFPAY ==
--- NOTE | 2023-07-18 08:49 | A.OFFVIS_ITS ---
Intake Intake Visit Reasons: PO-Lt Knee 07/05/23 Intake Note: Lin is a 58 year old female who presents for her post operative appointment of her Left knee 07/05/2023. Patient reports the she is feeling better, she has been doing home exercises, at night her pain increases. She continues to walk with crutches when she is out of her home. She denies any fevers or chills. Allergies No Known Allergies Allergy (Verified 07/18/23 08:54) [facility] Medical History Arthritis Lumbar stenosis IBS (irritable bowel syndrome) GERD (gastroesophageal reflux disease) Kidney stone on left side OAB (overactive bladder) Elevated cholesterol Panic attacks Anxiety Depression Diabetes Back pain Diverticulitis Surgical History H/O left wrist surgery H/O colonoscopy Hx of dilation and curettage History of surgery History of back surgery H/O breast surgery Social History Are you a primary cattle care worker to a significant other at home: No Do you presently have visiting nurse or other home services: No Patient Tobacco Use Status: Former Tobacco user Quit Date: Tobacco use type: Cigarette Current occupational status: employed 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 Roque is doing well after undergoing left knee arthroscopic surgery on 07/05/2023. Her sutures were removed and Steri-Strips placed over her incisions. She can gradually progress to activities as tolerated. She will contact me prior to her follow-up appointment in 6 weeks should any questions concerns arise. Feel free to call me at any time should questions regarding her orthopedic management arise. Coding Level of Care Code Global (45646) Diagnoses Left knee pain M25.562
== END 2023-07-18 09:04 | disposition home or self-care (01) ==
PROVIDERS: PCP Internal Medicine Medical Oncology; Visit Provider Orthopaedic Surgery
DX: M25.562 Pain in left knee (principal)
CPT/HCPCS: 99024

== ENCOUNTER → 2023-07-18 08:48 | Outpatient (BNVA) | payer BC, SELFPAY | PROVIDERS: PCP Internal Medicine Medical Oncology; Visit Provider Orthopaedic Surgery ==

== ENCOUNTER 2023-09-05 08:42 | Outpatient (AMB) | payer BC, SELFPAY ==
--- NOTE | 2023-09-05 08:44 | A.OFFVIS_ITS ---
Intake Intake Visit Reasons: PO-Lt Knee 07/05/23 Intake Note: Lin is a 58 year old female who presents for her post operative Left knee on 07/05/2023 DRElise Patient reports she is feeling good, she states it gets stiff from time to time. She takes ibuprofen as needed for discomfort. She denies any locking or giving way. Allergies No Known Allergies Allergy (Verified 09/05/23 08:48) Medication List - Last Reconciled 09/05/23 by Toño Gonzales MD [apple cider vinegar 3 caps PO DAILY] gabapentin ER (Gralise) 1,200 mg PO QPM metformin 500 mg PO DAILY multivitamin 1 tab PO DAILY [Mylanta PRN] trospium 20 mg PO BID PFSH Medical History Arthritis Lumbar stenosis IBS (irritable bowel syndrome) GERD (gastroesophageal reflux disease) Kidney stone on left side OAB (overactive bladder) Elevated cholesterol Panic attacks Anxiety Depression Diabetes Back pain Diverticulitis Surgical History (Updated 09/05/23 @ 08:50 by Jeri Noble CMA) Hx of left knee surgery (~07/05/23) H/O left wrist surgery H/O colonoscopy Hx of dilation and curettage History of surgery History of back surgery H/O breast surgery Social History Are you a primary healthcare network pricing consultant to a significant other at home: No Do you presently have visiting nurse or other home services: No Patient Tobacco Use Status: Former Tobacco user Quit Date: Tobacco use type: Cigarette Current occupational status: employed 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 Roque continues to do well after undergoing left knee arthroscopic surgery on 07/05/2023. She will continue to progress to activities as tolerated. She will continue taking ibuprofen as needed for discomfort. She will follow up with me on an as-needed basis should her symptoms not plateau at an unacceptable level over the next few months. Feel free to call me at any time should questions regarding her orthopedic management arise. Coding Level of Care Code Global (72936) Diagnoses Left knee pain M25.562
== END 2023-09-05 08:58 | disposition home or self-care (01) ==
PROVIDERS: PCP Internal Medicine Medical Oncology; Visit Provider Orthopaedic Surgery
DX: M25.562 Pain in left knee (principal)
CPT/HCPCS: 99024

== ENCOUNTER → 2023-09-05 08:42 | Outpatient (BNVA) | payer BC, SELFPAY | PROVIDERS: PCP Internal Medicine Medical Oncology; Visit Provider Orthopaedic Surgery ==

== ENCOUNTER 2023-12-13 16:45 | Outpatient (REF) | payer BC, SELFPAY ==
--- NOTE | ~2023-12-13 | CT_ITS ---
EXAMINATION: CT ABDOMEN AND PELVIS WITHOUT CONTRAST CLINICAL INFORMATION: Calculus of kidney. COMPARISON: CT abdomen and pelvis 07/05/2019. TECHNIQUE: Contiguous axial thin section helical images of the abdomen and pelvis were performed without contrast. The data set was reformatted in the coronal and sagittal planes and reviewed on an independent workstation. This CT examination was performed using dose optimization techniques as appropriate, variously including the following: *Automated exposure control *Adjustment of mA and/or kV according to patient size (this includes techniques or standardized protocols for targeted exams where dose is matched to indication/reason for exam; i.e. extremities or head) *Use of iterative reconstruction technique DLP: 618 mGy-cm FINDINGS: LUNG BASES: The visualized lung bases are unremarkable. LIVER, GALLBLADDER, AND BILIARY TREE: The liver is normal in size and shape but demonstrates decreased attenuation consistent with hepatic steatosis. Focal fatty sparing seen around the gallbladder. No focal hepatic lesion or biliary ductal dilatation is present. The gallbladder is unremarkable with no evidence of radiopaque gallstones, gallbladder wall thickening, or obvious pericholecystic inflammatory changes. PANCREAS: Unremarkable. SPLEEN: Unremarkable. Small subcentimeter calcified splenic aneurysm in the splenic anitha (6:63). ADRENAL GLANDS: Unremarkable. KIDNEYS AND URETERS: The kidneys are normal in size, shape, and attenuation. No hydronephrosis, hydroureter, or calculi seen. No perinephric stranding. A benign 1.3 cm left mid renal Bosniak class I cyst is noted which requires no additional imaging or followup. No solid renal masses are seen. BLADDER: Empty but unremarkable. GASTROINTESTINAL TRACT: The small and large bowel are unremarkable. The appendix is unremarkable. PELVIS: An anteverted uterus appears unremarkable. An abnormal pelvic mass is not seen. ABDOMINAL WALL: No significant hernia is appreciated. There is mild diastasis of the rectus muscles. LYMPH NODES: No retroperitoneal lymphadenopathy. VASCULAR: Unremarkable. OSSEOUS STRUCTURES: Degenerative changes in the spine most marked at L3-L4 and L5-S1. No bony destructive lesion. Mild scoliosis convex to left. CT/CT abdomen wo IV con IMPRESSION: 1. A cause for the patient's hematuria has not been found. No renal calculi are seen. 2. Incidental note made of hepatic steatosis, benign Bosniak class I left renal cyst which needs no additional imaging or followup, degenerative changes in the spine and other findings described above. Fleischner guidelines were followed.
== END 2023-12-13 16:46 | disposition home or self-care (01) ==
LOC: HO.CT 16:45
PROVIDERS: PCP Internal Medicine Medical Oncology; Visit Provider Urology
DX: N20.0 Calculus of kidney (principal)
CPT/HCPCS: 74150

== ENCOUNTER 2023-12-14 08:43 | Outpatient (REF) | payer BC, SELFPAY ==
[2023-12-14 09:09] LABS: MANUAL DIFF FLAG NO
[2023-12-14 09:35] LABS: Estimated Average Glucose 126 mg/dL
[2023-12-14 09:44] LABS: Basophils Absolute Auto 0.1 X10*3/uL (0.0-0.2); Basophils Percent Auto 0.9 % (0-2); Eosinophils Absolute Auto 0.2 X10*3/uL (0.0-0.4); Eosinophils Percent Auto 2.8 % (0-4); Hematocrit 43.8 % (37.0-47.0); Hemoglobin 14.5 g/dl (12.0-16.0); Imm Gran Abs Auto 0.01 X10*3/uL (0.00-0.03); Imm Gran Pct Auto 0.2 % (0.0-0.4); Lymphocytes Absolute Auto 2.6 X10*3/uL (1.2-4.9); Lymphocytes Percent Auto 44.2 % (20-40); Mean Corpuscular HGB Conc 33.1 g/dl (31.0-35.0); Mean Corpuscular Hemoglobin 28.9 pg (27.0-33.0); Mean Corpuscular Volume 87.3 fL (80.0-98.0); Monocytes Absolute Auto 0.4 X10*3/uL (0.1-1.2); Monocytes Percent Auto 6.7 % (2-11); Neutrophils Absolute Auto 2.6 x10*3/uL (2.0-8.3); Neutrophils Percent Auto 45.2 % (45-73); Platelet Count 262 X10*3/uL (160-400); Red Blood Count 5.02 X10*6/uL (4.20-5.50); Red Cell Distribution Width 13.3 % (11.0-16.0); White Blood Count 5.8 X10*3/uL (4.8-10.8)
[2023-12-14 09:56] LABS: Creatinine Urine 152.88 mg/dL; Microalbum/Creatinine Ratio Ur 6.5 ug/mg cr (<30)
[2023-12-14 10:00] LABS: Alanine Aminotransferase 32 U/L (0-31); Albumin Level 4.3 g/dL (3.5-5.0); Alkaline Phosphatase 61 U/L (39-117); Anion Gap 14 (12-20); Aspartate Amino Transferase 19 U/L (5-31); Bilirubin Total 0.5 mg/dL (0.0-1.0); Blood Urea Nitrogen 14 mg/dL (9-16); Calcium 9.7 mg/dL (8.4-10.2); Carbon Dioxide 25 mmol/L (22-29); Chloride 106 mmol/L (96-108); Cholesterol 193 mg/dL (<200); Estimated Glomerular Filt Rate > 60; Glucose Fasting 112 mg/dL (60-99); HDL Cholesterol 47 mg/dL (>40); LDL Cholesterol Calculated 116 mg/dL (<100); Potassium 4.4 mmol/L (3.3-5.1); Sodium 141 mmol/L (135-145); Total Protein 7.7 g/dL (6.5-8.0); Triglycerides 151 mg/dL (<150)
== END 2023-12-14 08:44 | disposition home or self-care (01) ==
LOC: HO.LAB 08:43
PROVIDERS: PCP Internal Medicine Medical Oncology; Visit Provider Internal Medicine Medical Oncology
DX: E78.5 Hyperlipidemia, unspecified (principal); E11.9 Type 2 diabetes mellitus without complications; E66.9 Obesity, unspecified
CPT/HCPCS: 36415; 80053; 80061; 82043; 82570; 83036; 85025

== ENCOUNTER 2024-04-18 08:33 | Outpatient (REF) | payer BC, SELFPAY ==
[2024-04-18 08:57] LABS: MANUAL DIFF FLAG NO
[2024-04-18 09:35] LABS: Estimated Average Glucose 128 mg/dL; Hemoglobin A1c % 6.1 % (<6.0); Total Hemoglobin (HGBA1C) 3676.7053 umol/L
[2024-04-18 09:52] LABS: Basophils Absolute Auto 0.1 X10*3/uL (0.0-0.2); Basophils Percent Auto 1.1 % (0-2); Eosinophils Absolute Auto 0.1 X10*3/uL (0.0-0.4); Eosinophils Percent Auto 2.5 % (0-4); Hematocrit 42.4 % (37.0-47.0); Imm Gran Abs Auto 0.01 X10*3/uL (0.00-0.03); Imm Gran Pct Auto 0.2 % (0.0-0.4); Lymphocytes Absolute Auto 2.5 X10*3/uL (1.2-4.9); Lymphocytes Percent Auto 44.1 % (20-40); Mean Corpuscular Hemoglobin 29.2 pg (27.0-33.0); Mean Corpuscular Volume 88.3 fL (80.0-98.0); Mean Platelet Volume 9.9 fL (9.4-12.3); Monocytes Absolute Auto 0.4 X10*3/uL (0.1-1.2); Monocytes Percent Auto 7.1 % (2-11); Neutrophils Absolute Auto 2.5 x10*3/uL (2.0-8.3); Platelet Count 264 X10*3/uL (160-400); Red Cell Distribution Width 13.3 % (11.0-16.0); White Blood Count 5.6 X10*3/uL (4.8-10.8)
[2024-04-18 10:30] LABS: Alanine Aminotransferase 41 U/L (0-31); Albumin Level 4.1 g/dL (3.5-5.0); Alkaline Phosphatase 68 U/L (39-117); Anion Gap 13 (12-20); Aspartate Amino Transferase 32 U/L (5-31); Bilirubin Total 0.4 mg/dL (0.0-1.0); Blood Urea Nitrogen 9 mg/dL (9-16); Calcium 9.5 mg/dL (8.4-10.2); Carbon Dioxide 27 mmol/L (22-29); Chloride 109 mmol/L (96-108); Cholesterol 178 mg/dL (<200); Estimated Glomerular Filt Rate > 60; Glucose Fasting 105 mg/dL (60-99); HDL Cholesterol 46 mg/dL (>40); LDL Cholesterol Calculated 109 mg/dL (<100); Potassium 4.3 mmol/L (3.3-5.1); Sodium 145 mmol/L (135-145); Total Protein 7.4 g/dL (6.5-8.0); Triglycerides 117 mg/dL (<150)
[2024-04-18 10:37] LABS: Creatinine Urine 43.59 mg/dL; Microalbumin Urine < 5.0 mg/L
== END 2024-04-18 08:34 | disposition home or self-care (01) ==
LOC: HO.LAB 08:33
PROVIDERS: PCP Internal Medicine Medical Oncology; Visit Provider Internal Medicine Medical Oncology
DX: E78.5 Hyperlipidemia, unspecified (principal); E66.9 Obesity, unspecified; E11.9 Type 2 diabetes mellitus without complications
CPT/HCPCS: 36415; 80053; 80061; 82043; 82570; 83036; 85025

== ENCOUNTER 2024-05-27 08:10 | Outpatient (REF) | payer BC, SELFPAY | END 2024-05-27 08:11 | disposition home or self-care (01) | LOC: HO.MAMMO 08:10 | PROVIDERS: PCP Internal Medicine Medical Oncology; Visit Provider Internal Medicine Medical Oncology | DX: Z12.31 Encounter for screening mammogram for malignant neoplasm of breast (principal) | CPT/HCPCS: 77063; 77067 ==

== ENCOUNTER → 2024-05-27 08:15 | Outpatient (BNV) | payer BC, SELFPAY | PROVIDERS: PCP Internal Medicine Medical Oncology; Visit Provider Internal Medicine | DX: Z12.31 Encounter for screening mammogram for malignant neoplasm of breast (principal) | CPT/HCPCS: 77063; 77067 ==

== ENCOUNTER 2024-07-31 08:58 | Outpatient (REF) | payer BC, SELFPAY ==
[2024-07-31 09:20] LABS: MANUAL DIFF FLAG NO
--- OUTSIDE RECORDS SUMMARY | 2024-07-31 09:22 | XMS_ITS ---
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 Name Role Phone Giuseppe Kumar Primary Care Provider [phone] REASON FOR VISIT annual exam Social History Sex Assigned At : Social History Observation Description Sex Assigned At Female Encounters Encounter Location Date Provider Diagnosis Giuseppe Kumar III, MD [address] [place] [address] [place] [address] 07/27/2024 Giuseppe Kumar Plan Of Treatment Next Appt Details Provider Name:Giuseppe Kumar, 12/03/2024 10:45:00 AM, [address] [place] [address] [place], [address], Provider Name:Giuseppe Kumar, 08/03/2025 09:30:00 AM, [address] [place] [address] [place], [address], Progress Notes * Lin JOHNSON LDOB: 5 (59 yo F)Acc No.[id number]:07/27/2024 Progress Notes Patient:?Lin JOHNSON Provider:?Giuseppe Kumar MD :1965???Age:59 Y???Sex:Female D ate:07/27/2024 Address:[address] [place], [place] [phone] Subjective: * Chief Complaints: * ???1. Annual exam. * Medical History:? Objective: * Vitals:? Assessment: Plan: * Treatment: * Images: * The named appointment provid er may or may not be the originator of this progress note, and it is not deemed complete until electronically signed by the appointment provider. Sign off status: Pending * Provider:?Giuseppe Kumar MD Date:?07/11 Generated for Bert egan/Isaak/Xavieritting on:?07/31/2024 09:22 AM EST
--- OUTSIDE RECORDS SUMMARY | 2024-07-31 09:23 | XMS_ITS ---
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 Name Role Phone SHANITA HUBER MD Primary Care Provider Unavailab Kristina Reyes Unavailable [phone] Allergies No Known Allergies Results Component Value Reference Range Notes Urinalysis (Not yet reviewed by provider) Interpretation: Performing Lab: Notes/Report: PH 5.0 PROTEIN NEG GLUCOSE NEG BLOOD NEG REASON FOR VISIT Annual DISTANCE EDUCATION COORDINATOR Physical, Annual DISTANCE EDUCATION COORDINATOR Physical 50-59* Medications Medication SIG (Take, Route, Fr equency, Duration) Notes Start Date End Date Status Trospium Chloride 20 MG 1 tablet at bedt celina on an empty stomach Orally Once a day Active metFORMIN HCl 500 MG 1 tablet with a latonya l Orally Once a day for 30 day(s) Active Gralise 600 MG 1 tablet Orally two tabs at supper Active Social History Tobacco Use: Social History Observation Description Date Details (start date - stop date) Former Smoker NA - NA Tobacco Use/Smoking Question Answer Notes Are you a former smoker How long has it been since you last smoked? > 10 years Alcohol Screen (Audit-C) Question Answer Notes Did you have a drink contain ing alcohol in the past year? Yes How often did you have a dri nk containing alcohol in the past year? Monthly or less (1 point) How many drinks did you have on a typical day when you were drinking in the past year? 1 or 2 drinks (0 point) Points 1 Interpretation Negative Vital Signs Temperature 97.5 degrees Fahrenheit 07/03/19 24 Blood pressure systolic 120 mm Hg 07/03/19 24 Blood pressure diastolic 86 mm Hg 024 Height 61 in 07/03/2023 Weight 212 lbs 07/03/2023 BMI 40.05 kg/m2 07/03/2023 Encounters Encounter Location Date Provider Diagnosis [facility] [address] [place] [address] 07/03/2023 Kristina Hargrove Encounter for gynecological examination (general) (routine) without abnormal findings Z01.419 ; Encounter for screening mammogram for malignant neoplasm of breast Z12.31 ; Menopausal and female climacteric states N95.1 and Morbid (severe) obesity due to excess calories E66.01 Assessments Encounter Date Diagnosis (ICD Code) Assessment Notes Treatment Notes Treatment Clinical Notes Section Notes 07/03/2023 Encounter for gynecological examination (general) (routine) without abnormal findings (ICD-10 - Z01.419) NO PAP TEST, DUE IN 2024. 07/03/2023 Encounter for screening mammogram for malignant neoplasm of breast (ICD-10 - Z12.31) REGULAR MAMMOGRAMS AND SBE'S WERE RECOMMENDED. 07/03/2023 Menopausal and female climacteric states (ICD-10 - N95.1) DISCUSSED MENOPAUSE AND SYMPTOMS ASSOCIATED WITH THIS. 07/03/2023 Morbid (severe) obesity due to excess calories (ICD-10 - E66.01) DISCUSSED OBESITY AND ITS NEGATIVE IMPACT ON HER LIFESTYLE AND HEALTH. RECOMMENDED WEIGHT WATCHERS'. Plan Of Treatment Treatment Notes Assessment Notes Encounter for gynecological examination (general) (routine) without abnormal findings NO PAP TEST, DUE IN 2024. Encounter for screening mamm ogram for malignant neoplasm of breast REGULAR MAMMOGRAMS AND SBE'S WERE RECOMMENDED. Menopausal and female climacteric states DISCUSSED MENOPAUSE AND SYMPTOMS ASSOCIATED WITH THIS. Morbid (severe) obesity due to excess calories DISCUSSED OBESITY AND ITS NEGATIVE IMPACT ON HER LIFESTYLE AND HEALTH. RECOMMENDED WEIGHT WATCHERS'. Pending Test Test Name Order Date Urinalysis 07/03/2023 MM Digital Mammo Screening 07/03/2023 Next Appt Details Follow Up: 1 Year, Reason: Provider Name:Kristina casanova, 07/12/2025 08:40:00 AM, [address], [place], [address], Progress Notes * MARÍA ELENA JOHNSON LDOB: 5 (58 yo F)Acc No.[id number]:07/03/2023 PROGRESS NOTES Patient:?MARÍA ELENA JOHNSON Appointment Provider:?Kristina casanova M.D. :1965???Age:58 Y???Sex:Female D ate:07/03/2023 Address:[address] [place] [address] Pcp:SHANITA HUBER MD Subjective: * Chief Complaints: * ???Annual DISTANCE EDUCATION COORDINATOR PhysicalAnnual DISTANCE EDUCATION COORDINATOR Physical 50-59* * HPI: ???New/Follow-up Patient Consult:? PAT ENTERED MENOPAUSE IN 2021. SHE HAS TOLERABLE HOT FLASHES AND NIGHT SWEATS. SHE DENIES DYSPAREUNIA. ?SHE IS GOING TO UNDERGO LEFT KNEE ARTHROSCOPY NEXT WEEK AT [facility]. ?SHE HAS A HX OF LEFT KIDNEY STONES AND AN OVERACTIVE BLADDER AND IS FOLLOWED BY DR BORRERO. ?PELVIC ULTRASOUND DONE IN 2022 WAS NORMAL. ?HER LAST MAMMOGRAM DONE IN FEB 2023 SHOWED BREASTS ARE NOT DENSE AND WAS NORMAL. ?HER LAST PAP TEST IN 2021 WAS NEGATIVE AND HPV NEGATIVE. ?SHE HAD A COLONOSCOPY DONE IN 2021. ?MODERNA X 3. ???Annual:? Patient presents for annual exam, ages 50-59. ?General Health Maintenance:?Current breast complaints:?no breast pain, mass, discharge, or skin changes ?Urinary problems:?patient reports no urinary health problems or bowel health problems ?Calcium intake:?takes adequate calcium via diet and supplementation ?Significant DISTANCE EDUCATION COORDINATOR problems:?no significant wetlands conservation laborer symptoms or problems * ROS:?general:?no?chest pain.?no?palpitations.?no?headache.?no?cough.?no?shortness of breath.?no?fever.?no?unexplained weight loss.?no?nausea/vomiting.?no?change in bowel movements.?no blood in stool.?no?genitourinary complaints.?no?skin complaints.? * Medical History:? 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 * OB History:?Total pregnancies?3.?Total living children?2.?NVD?2.? * Surgical History:?Colonoscop y Lower Back Surgery 01/09/17 * Hospitalization/Major Diagno stic Procedure:?2 Vaginal Deliveries See Surgical Hx * Family History:?Mother: angelica headley, coronary artery disease, diagnosed with Unspecified cerebral artery occlusion with cerebral infarction.?Father: , Colon Cancer.?Paternal Grand Father: Pancreatic Cancer.?Paternal uncle: Lymphoma.?Maternal uncle: Colon Cancer, diagnosed with Other malignant neoplasm of unspecified site.?Maternal aunt: Lung Cancer.?Spouse: Moderate Traumatic Brain Injury Due to Work Accident 03/03/14.? Sister: DCIS, LCIS Paternal Uncle: Colon Cancer. * Social History:?Tobacco Use:?Tobacco Use/Smoking?Are you a?former smoker ?How long has it been since you last smoked??> 10 years ???Sexual History:?Sexual History?Had sex in the past 12 months (vaginal, oral, or anal)?: Yes, with: Men only, Prevention strategies discussed:: Other.?Details of Sexual History?Are you sexually active??Yes ???Drugs/Alcohol:?Drugs?Have you used drugs other than those for medical reasons in the past 12 months??No ?Alcohol Screen (Audit-C)?Did you have a drink containing alcohol in the past year??Yes ?How often did you have a drink containing alcohol in the past year??Monthly or less (1 point) ?How many drinks did you have on a typical day when you were drinking in the past year??1 or 2 drinks (0 point) ?Points?1 ?Interpretation?Negative ???Miscellaneous:?Children: yes, 2. ?no Domestic violence. ?Exercise: yes. ?Home smoke detector use: yes. ?Living with: spouse. ?Marital status: . ?Natural support system: yes. ?Occupation: Works full-time. ?Others at home: yes. ?no Sexual abuse. ?Sexually active: yes, monogamous relationship. ?no Verbal abuse. * Medications:?TakingTrospium Chloride 20 MG Tablet 1 tablet at bedtime on an empty stomach Orally Once a daymetFORMIN HCl 500 MG Tablet 1 tablet with a meal Orally Once a dayGralise 600 MG Tablet 1 tablet Orally two tabs at supperTaking Trospium Chloride 20 MG Tablet 1 tablet at bedtime on an empty stomach Orally Once a dayTaking metFORMIN HCl 500 MG Tablet 1 tablet with a meal Orally Once a dayTaking Gralise 600 MG Tablet 1 tablet Orally two tabs at supper * Allergies:?N.K.D.A.no[Allerg ies Verified] Objective: * Vitals:?Ht: 61 in, Wt:212 lb s, BMI:40.05 Index, BP:120/86 mm Hg, Temp:97.5 F. * Examination: ???General Exam: ?CONSTITUTIONAL:?NECK/THYROID:?RESPIRATORY:?Auscultation: clear to auscultation bilaterally, Respiratory Effort: normal.?CARDIOVASCULAR:?Auscultation: regular rate and rhythm.?BREAST, Right:?BREAST, Left:?GASTROINTESTINAL:?MUSCULOSKELETAL:?SKIN:?NEURO/PSYCH:?Genitourinary: ?EXTERNAL GENITALIA:?VAGINA:?BLADDER:?URETHRA:?CERVIX:?UTERUS:?ADNEXA:?ANUS AND PERINEUM:? Assessment: * Assessment: 1.?Encounter for gynecologic al examination (general) (routine) without abnormal findings - Z01.419?2.?Encounter for screening mammogram for malignant neoplasm of breast - Z12.31?3.?Menopausal and female climacteric states - N95.1?4.?Morbid (severe) obesity due to excess calories - E66.01? Plan: * Treatment: ? Value Reference Range ?PH 5.0 * ?PROTEIN NEG * ?GLUCOSE NEG * ?BLOOD NEG * CRYSTAL Angelo 07/03/2023 02:59:53 PM > Notes: NO PAP TEST, DUE IN 2024.??2.?Encounter for screening mammogram for malignant neoplasm of breast?Imaging: MM Digital Mammo Screening Notes: REGULAR MAMMOGRAMS AND SBE'S WERE RECOMMENDED.??3.?Menopausal and female climacteric states? Notes: DISCUSSED MENOPAUSE AND SYMPTOMS ASSOCIATED WITH THIS.??4.?Morbid (severe) obesity due to excess calories? Notes: DISCUSSED OBESITY AND ITS NEGATIVE IMPACT ON HER LIFESTYLE AND HEALTH. RECOMMENDED WEIGHT WATCHERS'.?? * Procedure Codes:? * Preventive Medicine:? ??YOUR PREVENTIVE WELLNESS PLAN:?Osteoporosis prevention?Calcium, D, strength training.?Breast Cancer Screening (Mammogram):?annually.?Cervical Cancer Screening (Pap Smear):?q 3 years with HPV screen.?Colorectal Cancer Screening:?q 10 years.? * Follow Up:?1 Year * Images: Billing Information: * Visit Code:? 38990 Preventive Care New Pt. Age 40-64. 99065 Preventive Care Est Pt. Age 40-64. * Procedure Codes:? * Sign off status: Completed true * Appointment Provider:?Kristina Hargrove M.D. Date:?07/03/2023 Generated for Bert egan/Isaak/eTjanaesmitting on:?07/31/2024 09:23 AM EST History and Physical Notes * HPI (History of Present Illness) Category Sub-Category Detail Notes Category Not es New/Follow-up Patient Consult PAT ENTERED MENOPAUSE IN 2021. SHE HAS TOLERABLE HOT FLASHES AND NIGHT SWEATS. SHE DENIES DYSPAREUNIA. SHE IS GOING TO UNDERGO LEFT KNEE ARTHROSCOPY NEXT WEEK AT [facility]. SHE HAS A HX OF LEFT KIDNEY STONES AND AN OVERACTIVE BLADDER AND IS FOLLOWED BY DR BORRERO. PELVIC ULTRASOUND DONE IN 2022 WAS NORMAL. HER LAST MAMMOGRAM DONE IN FEB 2023 SHOWED BREASTS ARE NOT DENSE AND WAS NORMAL. HER LAST PAP TEST IN 2021 WAS NEGATIVE AND HPV NEGATIVE. SHE HAD A COLONOSCOPY DONE IN 2021. MODERNA X 3. Annual General Health Maintenance: Current breast complaints:: no breast pain, mass, discharge, or skin changes Urinary problems:: patient r eports no urinary health problems or bowel health problems Calcium intake:: takes adequ ate calcium via diet and supplementation Significant DISTANCE EDUCATION COORDINATOR problems:: n o significant wetlands conservation laborer symptoms or problems Examination Category Sub-Category Detail Notes Category Not es General Exam CONSTITUTIONAL: General Appearan ce:: alert, in no acute distress, normal, well nourished , morbidly obese NECK/THYROID: Thyroid:: normal size and shape Inspection/Palpation:: normal RESPIRATORY: Auscultation: clear to auscultation bilaterally, Respiratory Effort: normal CARDIOVASCULAR: Auscultation: regula r rate and rhythm GASTROINTESTINAL: Hernias:: no hernias present, no inguinal adenopathy Liver and Spleen:: normal Abdomen:: no masses, nontender, nondiste nded MUSCULOSKELETAL: Inspection/Palpation:: no clubb ing, cyanosis, or edema SKIN: Skin:: normal NEURO/PSYCH: Mood/Affect:: normal Orientation:: time , place, person BREAST, Right: Inspection/Palpation :: no discharge, no masses present, no nipple retraction, no skin changes, no skin dimpling, no tenderness, no lymphadenopathy, no axillary mass, no axillary tenderness BREAST, Left: Inspection/Palpation :: no discharge, no masses present, no nipple retraction, no skin changes, no skin dimpling, no tenderness, no lymphadenopathy, no axillary mass, no axillary tenderness Genitourinary EXTERNAL GENITALIA: External Genitalia:: nor mal, no lesions VAGINA: Vagina:: normal appearance, no a bnormal discharge, no lesions BLADDER: Bladder:: no mass, nontender URETHRA: Urethra:: no erythema or lesions present CERVIX: Cervix:: no lesions, nontender UTERUS: Uterus:: nontender, normal conto ur, normal mobility, normal size ADNEXA: Adnexa:: no masses, no tendernes s ANUS AND PERINEUM: Anus/Perineum:: visually norm al
--- OUTSIDE RECORDS SUMMARY | 2024-07-31 09:23 | XMS_ITS | Patient Health Record ---
Author Organization [facility] Address [address] [place] [address] Care Team Providers Care Supply Manager Name Role Phone SHANITA HUBER MD Primary Care Provider Unavailab ben Kristina Hargrove Unavailable [phone] Allergies No Known Allergies Results Component Value Reference Range Notes Urinalysis Reviewed date:07/08/2024 09:07:00 AM Interpretation: Performing Lab: Notes/Report: PH 5.0 PROTEIN Neg GLUCOSE Neg BLOOD Neg [id number] IGP No Culture 30 Plus Reviewed date:07/09/2024 06:26:29 PM Interpretation: Performing Lab:[facility], [address], [address], [place], Phone - [phone], Director - [facility] Notes/Report: Clinical Information:Vaginal/Cervical, LMP: Men o [id number] LMP / Prev Treat...LQS=[id number] Dates / Results....06/07/22 NIL, Neg HPV Other..............Post Menopausal No. of containers..01 ThinPrep Vial DIAGNOSIS: NEGATIVE FOR IN TRAEPITHELIAL LESION OR MALIGNANCY. Specimen adequacy: Satisfactory for evaluation. Endocervical and/or squamous metaplastic cells (endocervical component) are present. Clinician provided ICD10: Z0 1.419 Performed by: Kell james, Presser Hand (ASCP) . . Note: The Pap smear is a screening test designed to aid in the detection of premalignant and malignant conditions of the uterine cervix. It is not a diagnostic procedure and should not be used as the sole means of detecting cervical cancer. Both false-positive and false-negative reports do occur. . Test Methodology: This liquid based ThinPrep(R) pap test was screened with the use of an image guided system. HPV Aptima Negative Negative This nucleic acid amplification test detects fourteen high-risk HPV types (16,18,31,33,35,39,45,51,52,56,58 ,59,66,68) without differentiation. HPV Genotype Reflex Criteria not met, HPV Genotype not performed. PDF Report Reviewed date:07/09/2024 06:26:09 PM Interpretation: Performing Lab:[facility] [place], [address], [address], [place], Phone - [phone], Director - [facility] Notes/Report: Clinical Information:Vaginal/Cervical, LMP: Men o [id number] LMP / Prev Treat...[id number] Dates / Results....06/07/22 NIL, Neg HPV Other..............Post Menopausal No. of containers..01 ThinPrep Vial Reason For Referral No Information Medications Medication SIG (Take, Route, Fr equency, Duration) Notes Start Date End Date Status Trospium Chloride 20 MG 1 tablet at bedt celina on an empty stomach Orally Once a day Active metFORMIN HCl 500 MG 1 tablet with a latonya l Orally Once a day for 30 day(s) Active Gralise 600 MG 2 tablets Orally two tabs at supper Active Social History Tobacco Use: Social History Observation Description Date Details (start date - stop date) Former Smoker NA - NA AUDIT-C (Standard) Question Answer Notes Did you have a drink contain ing alcohol in the past year? Yes How often did you have a dri nk containing alcohol in the past year? Never (0 point) How many drinks did you have on a typical day when you were drinking in the past year? 1 or 2 drinks (0 point) How often did you have six o r more drinks on one occasion in the past year? Less than monthly (1 point) Points 1 Interpretation Negative Tobacco Control (Standard) Question Answer Notes Tobacco use: Former smoker How long has it been since you last smoked? Grea ter than 10 years Problems Problem Type SNOMED Code ICD Code Onset Dates Problem Status W/U Status Risk Notes Problem Urinary incontinence (488462420) Unspecified urinary incontinence (R32) Active confirmed Problem Morbid obesity (disorder) (992788201) Morbid (severe) obesity due to excess calories (E66.01) Active confirmed Problem Disorder of breast (33537507) Disorder of breast, unspecified (N64.9) Active confirmed Problem Unspecified menopausal and perimenopausal disorder (N95.9) Active confirmed Problem Menopause (556684465) Menopausal and female climacteric states (N95.1) Active confirmed Problem Esophageal reflux (777139120) Esophageal reflux (530.81) Active confirmed Major Problem Irritable bowel syndrome (80196937) Irritable bowel syndrome (564.1) Active confirmed Major Problem Gynecological examination normal (027787285738618) Routine gynecological examination (V72.31) Active confirmed Major Vital Signs Temperature 97.4 degrees Fahrenheit 07/08/2024 Blood pressure diastolic 78 mm Hg 07/08/2024 Height 61 in 07/08/2024 Blood pressure systolic 116 mm Hg 07/08/2024 Weight 216 lbs 07/08/2024 BMI 40.81 kg/m2 07/08/2024 Encounters Encounter Location Date Provider Diagnosis [address] [place] [address] 07/08/2024 Kristina Hargrove Encounter for gynecological examination (general) (routine) without abnormal findings Z01.419 ; Encounter for screening mammogram for malignant neoplasm of breast Z12.31 and Menopausal and female climacteric states N95.1 Assessments Encounter Date Diagnosis (ICD Code) Assessment Notes Treatment Notes Treatment Clinical Notes Section Notes 07/08/2024 Encounter for gynecological examination (general) (routine) without abnormal findings (ICD-10 - Z01.419) PAP TEST WITH HPV TYPING WAS OBTAINED. 07/08/2024 Encounter for screening mammogram for malignant neoplasm of breast (ICD-10 - Z12.31) REGULAR MAMMOGRAMS AND SBE'S WERE RECOMMENDED. 07/08/2024 Menopausal and female climacteric states (ICD-10 - N95.1) DISCUSSED MENOPAUSE AND SYMPTOMS ASSOCIATED WITH THIS. CALL IF SHE HAS ANY PMB OR IF MENOPAUSAL SYMPTOMS WORSEN. Plan Of Treatment Pending Test Test Name Order Date MAMMOGRAM, SCREENING 07/13/2014 Urinalysis 06/05/2021 Urinalysis 07/03/2023 MM Digital Mammo Screening 07/08/2024 MM Digital Mammo Screening 06/07/2022 MM Digital Mammo Screening 07/03/2023 MM Digital Mammo Screening 09/06/2015 MM Digital Mammo Screening 02/20/2018 MM Digital Mammo Screening 06/05/2021 Next Appt Details Provider Name:Kristina casanova, 07/12/2025 08:40:00 AM, [address], [address], [place], [address], Insurance Providers Payer Name Payer Address Payer Phone Subscriber Number Group Number Insured Name Patient Relationship to Insured Coverage Start Date Coverage End Date [employer] [place] [address] [address] [place] [address] [id number] RENETTA JOHNSON Spouse - patient is the spouse of the insured Medical (General) History Medical History History ICD Code Diverticulitis Gastro-esophageal reflux disease without esophagitis K21.9 Irritable bowel syndrome without diarrhe a K58.9 Pelvic and perineal pain R10.2 Disorder of breast, unspecified N64.9 Morbid (severe) obesity due to excess ca lories E66.01 Unspecified lump in the right breast, up per outer quadrant N63.11 Unspecified lump in unspecified breast N 63.0 Inconclusive mammogram R92.2 Unspecified urinary incontinence R32 Unspecified menopausal and perimenopausa l disorder N95.9 Menopausal and female climacteric states N95.1 Surgical History Surgery Date(Month/Year) Colonoscopy Lower Back Surgery 01/09/17 Hospitalization History Reason Date(Month/Year) See Surgical Hx 2 Vaginal Deliveries
--- OUTSIDE RECORDS SUMMARY | 2024-07-31 09:23 | XMS_ITS ---
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 :1965???Age:58 Y???Sex:Female D ate:06/14/2023 Address:[address] [place] [address] Pcp:SHANITA HUBER MD Subjective: * Chief Complaints: * ???1. 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 * Medical History:? Objective: * Vitals:? Assessment: Plan: * Treatment: * Images: Billing Information: * Visit Code:? * Procedure Codes:? * Electronic signature of Qiana Hargrove MD on 07/31/2024 at 09:22 AM EST Sign off status: Pending * Appointment Provider:?Kristina Hargrove M.D. Date:?06/14/2023 Generated for Bert egan/Isaak/Marie on:?07/31/2024 09:22 AM EST
--- OUTSIDE RECORDS SUMMARY | 2024-07-31 09:23 | XMS_ITS ---
Author Organization Giuseppe Kumar III, MD Address [address] [place] [address] Care Team Providers Care Last Repairer Name Role Phone Giuseppe Kumar Primary Care Provider [phone] Allergies Allergen (clinical drug ingredient) Drug/Non Drug [...] 0.2 - 1.3 BLD neg Negative - Reason For Referral Reason over due for her col onoscopy Has been seen in the past Diagnosis 1 Encounter for screen ing for malignant neoplasm of colon (Z12.11) Referral Organization Giuseppe Kumar III, MD Referring Provider First Name Giuseppe Referring Provider Last Name José Referring Provider Speciality Internal M edicine Referred Provider [facility], Gastroenterology Referred Provider Specialty Gastroentero logy Referral Priority Routine Reason diabetic eye care check for Cataracts Diagnosis 1 Type 2 diabetes araseli itus without complication, without long-term current use of insulin (E11.9) Referral Organization Giuseppe Kumar III, MD Referring Provider First Name Giuseppe Referring Provider Last Name José Referring Provider Speciality Internal M edicine Referred Provider [facility] Referred Provider Specialty Ophthalmolog y, Cataracts Referral Priority Routine REASON FOR VISIT annual exam Medications Medication SIG (Take, Route, Fr equency, Duration) Notes Start Date End Date Status metFORMIN HCl 500 MG TAKE 1 TABLET BY MO [facility] EVERY DAY WITH A MEAL Active Gralise [...] Date Provider Diagnosis Giuseppe Kumar III, MD [address] [place] [address] [address] [place], [place] [address] 07/30/2024 Giuseppe Kumar Localized osteoarthr itis of [...] HCl 500 MG TAKE 1 TABLET BY [facility] EVERY DAY WITH A MEAL Gralise 600 MG 2 tablet Orally Once a day Trospium Chloride 20 MG 1 tablet at bedt celina on an empty stomach Orally twice a day Apple Cider Vinegar - as directed Orally Pending Test Test Name Order Date PROFILE, FASTING (COMPREHENSIVE METABOLI C) 07/30/2024 CBC w DIFF 07/30/2024 Lipid Panel 07/30/2024 Microalbumin, Random 07/30/2024 Hemoglobin A1c 07/30/2024 Referrals Referral Date Details 07/30/2024 07/30/2024, over due for her colonoscopy Has been seen in the past, Gastroenterology [facility] 07/30/2024 07/30/2024, diabetic eye care check for Cataracts, [facility] Next Appt Details Follow Up: 4 Months, Reason: ov review labs Provider Name:Giuseppe Kumar, 12/03/2024 10:45:00 AM, [address] [place] [address] [address], [place], [address], Provider Name:Giuseppe Keithrne, 08/03/2025 09:30:00 AM, [address] [place] [address] [address] [place], [place], [address], Progress Notes * ELIZABETH Lin LDOB: 5 (59 yo F)Acc No.[id number]:07/30/2024 Progress Notes Patient:?ELIZABETHLin Provider:?Giuseppe Kumar MD :1965???Age:59 Y???Sex:Female D ate:07/30/2024 Address:[address] [place], [place] [address] Subjective: * Chief Complaints: * ???Annual exam * HPI: ???Depression Screening:? She returns today Far her annual examination at the age of 59.? She is feeling healthy and well.? 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 Her daughter is well.? She has had no panic attacks of pain.? Her depression is minimal.? Her back pain has resolved.? She has not been keeping track of her glucose levels.? She is taking will go 3 with excellent results having lost 7 pounds.? ?She will be seen monthly while she is on this medication. ?PHQ-9?Little interest or pleasure in doing things?Not at all ?Feeling down, depressed, or hopeless?Not at all ?Trouble falling or staying asleep, or sleeping too much?Not at all ?Feeling tired or having little energy?More than half the days ?Poor appetite or overeating?Not at all ?Feeling bad about yourself or that you are a failure, or have let yourself or your family down?More than half the days ?Trouble concentrating on things, such as reading the newspaper or watching television?Not at all ?Moving or speaking so slowly that other people could have noticed; or the opposite, being so fidgety or restless that you have been moving around a lot more than usual?Not at all ?Thoughts that you would be better off or of hurting yourself in some way?Not at all ?Total Score?4 ?Interpretation?Minimal Depression ???COVID-19 Screening:?Questions?Have you had any new onset fever, chills, cough, congestion, sore throat, shortness of breath, muscle aches??No ???SDOH Questions:?SDOH Questions?In the past year have you been worried about losing your housing??No ?In the past year have you or any family members you live with been unable to get any of the following when it was really needed? Check all that apply:?None * ROS:?General/Constitutional:?pain?Intermittent lumbar spine, otherwise only normal aches and pains.?Chills?denies.?Fatigue?admits.?Fever?denies.?ENT:?Decreased hearing?denies.?Respiratory:?Cough?denies.?Cardiovascular:?Chest pain with exertion?denies.?Dyspnea on exertion?denies.?Shortness of breath?denies.?Gastrointestinal:?Constipation?occasional.?Decreased appetite?denies.?Diarrhea?denies.?Heartburn?denies.?Nausea?denies.?Rectal bleeding?denies.?Vomiting?denies.?Hematology:?bruising?denies.?petechiae?denies.?Swollen glands?none have been noted.?Genitourinary:?Frequent urination?at night.?Musculoskeletal:?Muscle aches?denies.?Painful joints?denies.?Sciatica?denies.?Weakness?denies.?Skin:?Itching?denies.?Rash?denies.?Skin lesion(s)?denies.?Neurologic:?Difficulty speaking?denies.?Dizziness?denies.?Headache?denies.?Low back pain?denies.?Psychiatric:?Depressed mood?denies.? * Medical History:? * Surgical History:?2011 breas t surgery Back Surgery 2017Left knee surgery 07/05/2023No history * Hospitalization/Major Diagno stic Procedure:?Abdominal pain 06/2019No history * Family History:?Father: dece ased 69 yrs, colon cancer, adult onset diabetes mellitus, anemia, diagnosed with DM, Cancer.?Mother: alive 75 yrs, diverticulosis, osteoarthritis, acid reflex, artial fibrillation, dementia, stroke.?Paternal Grand Father: , pancreatic cancer, diagnosed with Cancer.?Maternal Grand Mother: , adult onset diabetes mellitus, arthritis, diagnosed with DM.?Paternal uncle: , lymphoma.?Maternal aunt: , lung cancer, diagnosed with Cancer.?2 sister(s) - healthy. 1 son(s) , 1 daughter(s) - healthy. .? Her oldest sister had a pacer in march 26, 2017. * Social History:?Tobacco Use:?Tobacco Control (Standard)?Tobacco use:?Nonsmoker ?Additional Findings: Tobacco non-user?Aggressive nonsmoker ???Drugs/Alcohol:?Drugs?Have you used drugs other than those for medical reasons in the past 12 months??No ???Drug/Alcohol:?AUDIT-C (Standard)?Did you have a drink containing alcohol in the past year??No ?Points?0 ?Interpretation?Negative ???She has been for many years.? She is now retired. * Medications:?TakingmetFORMIN HCl 500 MG Tablet TAKE 1 TABLET [...] reviewed and reconciled with the patient * Allergies:?Banana Concentrat eSeasonaleno[Allergies Verified] Objective: * Vitals:?Ht: 62, Wt: 217, BMI :39.69, BP: 140/80, HR: 80, Temp: 98.6, Wt-k.43. * Examination: ???General Examination: ?GENERAL APPEARANCE:?pleasant, well nourished, well developed, in no acute distress, calm and relaxed, obese, woman.?HEAD:?atraumatic, normocephalic.?EYES:?eomi, perrla, anicteric, conjugate.?EARS:?normal.?NOSE:?septum intact.?ORAL CAVITY:?normal, unremarkable.?NECK/THYROID:?no jugular venous distention, no carotid bruit, thyroid normal.?LYMPH NODES:?no enlarged lymph nodes,spleen normal.?SKIN:?no suspicious lesions, anicteric.?HEART:?no clicks, gallops, murmurs, or rubs, regular rhythm, S1, S2 normal, no s3, or vascular bruits.?LUNGS:?clear to auscultation .?BREASTS:?Done by [facility], Dr. Iraheta.?ABDOMEN:?bowel sounds normal, no ascites, no organomegaly, no mass, centripital obesity.?RECTAL EXAM:?Done by [facility].?MUSCULOSKELETAL:?extremities unremarkable, no clubbing, cyanosis or edema, Crepitus, left knee, mild decrease of range of motion lumbar spine.?PERIPHERAL PULSES:?normal.?NEUROLOGIC:?alert and oriented, cranial nerves 2-12 grossly intact, deep tendon reflexes 2+ symmetrical, motor strength normal upper and lower extremities, sensory exam intact.?PSYCH:?alert, oriented.? Assessment: * Assessment: 1.?Lumbar radiculopathy, acu te - M54.16 (Primary)???Notes :Low back pain is mild but present. She is avoiding heavy lifting.???2.?Localized osteoarthritis of left knee - M17.12???Notes :Her left knee has healed well after surgery and is much less painful. He remains under the care of orthopedics.???3.?Panic attacks - F41.0???Notes :She is taking 20 mg of fluoxetine daily doing well. She feels much better and is functioning normally.???4.?Hyperlipidemia - E78.5???Notes :The current fasting lipid profile shows good control of her lipids and no change in her medications was necessary.???5.?Depression - F32.9???Notes :Her depression is stable and no change in her regimen was made.???6.?Type 2 diabetes mellitus without complication, without long-term current use of insulin - E11.9???Notes :Her hemoglobin A1c is 6.0. Her regimen was continued without change. We reviewed the necessity for weight loss.???7.?Obesity - E66.9???Notes :Her body mass index is 39. We discussed her diabetes and weight at length. We made a plan to lose weight at a rate of one half of a pound per week through diet restricted in fat calories and sodium. She will be seen after blood work in the near future.???8.?Acute left-sided low back pain without sciatica - M54.50???Notes :Her pain has become milder and she is able to conduct all of the activities of daily life.??? Plan: * Treatment: 2.?Hyperlipidemia?LAB: PROFILE, FASTING (COMPREHENSIVE METABOLIC) ?LAB: CBC w DIFF ?LAB: Lipid Panel ?LAB: Microalbumin, Random ?LAB: Hemoglobin A1c 3.?Type 2 diabetes mellitus without complication, without long-term current use of insulin?LAB: PROFILE, FASTING (COMPREHENSIVE METABOLIC) ?LAB: CBC w DIFF ?LAB: Lipid Panel ?LAB: Microalbumin, Random ?LAB: Hemoglobin A1c? [facility]erral To:[facility]??Ophthalmology, Cataracts ?Reason:diabetic eye care check for Cataracts 4.?Obesity?LAB: PROFILE, FASTING (COMPREHENSIVE METABOLIC) ?LAB: CBC w DIFF ?LAB: Lipid Panel ?LAB: Microalbumin, Random ?LAB: Hemoglobin A1c 5.?Others? Continue metFORMIN HCl Tablet, 500 MG, TAKE 1 TABLET BY MOUTH EVERY DAY WITH A MEAL.? Referral To:[facility]ology [facility]??Gastroenterology ?Reason:over due for her colonoscopy Has been seen in the past * Labs:? * ?Lab: URINE DIP STICK (C ollection Date & Time - 07/30/2024) ? Value Reference Range ?SG 1.025 1.005 - 1.025 * ?pH 5.0 5.0 - 9.0 * ?PATY 15 Negative - * ?NIT Neg Negative - * ?PRO 15 Negative - Trac e * ?GLU Neg Negative - * ?KET Neg Negative - * ?UBG 0. 0.1 - 1.8 * ?LUIS Neg 0.2 - 1.3 * ?BLD neg Negative - * Procedure Codes:?85945 URINE -NO MICRO * Preventive Medicine:? ??Counseling:?Care goal follow-up plan:?Counseling for abnormal BMI given?Yes ?Above Normal BMI Follow-up?Dietary management education, guidance, and counseling, Dietary needs education, Exercise promotion: strength training, Exercise promotion: stretching, Feeding regime, Giving encouragement to exercise, Lifestyle education regarding diet, Nutrition / feeding management, Nutrition therapy, Prescribed activity/exercise education, Prescribed diet education, Prescribed dietary intake, Special diet education, Weight monitoring , Intervention, Order not done: Medical or Other reason not done ??DM Care Plan:?Patient Lifestyle Goals?Patient wants to be able to manage diabetes without too much effort.?Treatment Goals?HbA1C < 7.0, Blood Sugars less than < 115.?Barriers?no barriers.?Self-Managment Goals?Work on weight loss, with a goal of losing 1 lb per week.? * Follow Up:?4 Months (Reason: ov review labs) * Images: * Sign off status: Completed true * Provider:?Giuseppe Kumar MD Date:?07/12 Generated for Bert egan/Isaak/Marie on:?07/31/2024 09:23 AM EST History and Physical [...] anicteric PERIPHERAL PULSES: normal BREASTS: Done by [facility], Dr. Keon robbins MUSCULOSKELETAL: extremities unremark able, no clubbing, cyanosis or edema, Crepitus, left knee, mild decrease of range of motion lumbar spine LYMPH NODES: no enlarged lymph no ector,spleen normal RECTAL EXAM: Done by [facility] PSYCH: alert, oriented ORAL CAVITY: normal, unremarkable Consultation Request Notes Referral Date Referring Provider Referred Provider Not es 07/30/2024 Giuseppe Kumar [facility], Gastroenterology over due for her colonoscopy Has been seen in the past 07/30/2024 Giuseppe Kumar [facility], [facility] eye care check for Cataracts
--- OUTSIDE RECORDS SUMMARY | 2024-07-31 09:23 | XMS_ITS ---
Author Organization [facility] Address [address] [place] [address] Care Team Providers Care Industrial Engineering Professor Name Role Phone SHANITA HUBER MD Primary Care Provider Unavailab Kristina Reyes Unavailable [phone] Allergies No Known Allergies Results Component Value Reference Range Notes Urinalysis Reviewed date:07/08/2024 09:07:00 AM Interpretation: Performing Lab: Notes/Report: PH 5.0 PROTEIN Neg GLUCOSE Neg BLOOD Neg [id number] IGP No Culture 30 Plus Reviewed date:07/09/2024 06:26:29 PM Interpretation: Performing Lab:[facility] [place], [address], [address], [place], Phone - [phone], Director - [facility] Notes/Report: Clinical Information:Vaginal/Cervical, LMP: Men o [id number] LMP / Prev Treat...[id number] Dates / Results....06/07/22 NIL, Neg HPV Other..............Post Menopausal No. of containers..01 ThinPrep Vial DIAGNOSIS: NEGATIVE FOR IN TRAEPITHELIAL LESION OR MALIGNANCY. Specimen adequacy: Satisfactory for evaluation. Endocervical and/or squamous metaplastic cells (endocervical component) are present. Clinician provided ICD10: Z0 1.419 Performed by: Kell james, House Principal (ASCP) . . Note: The Pap smear [...] Patricia [address], [address], [place], Phone - [phone], Director - [facility] Notes/Report: Clinical Information:Vaginal/Cervical, LMP: Men o [id number] LMP / Prev Treat...[id number] Dates / Results....06/07/22 NIL, Neg HPV Other..............Post Menopausal No. 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 Chase[address] ter than 10 years Vital Signs Temperature 97.4 degrees Fahrenheit 07/08/19 25 Blood pressure systolic 116 mm Hg 07/08/19 25 Blood pressure diastolic 78 mm Hg 025 Height 61 in 07/08/2024 Weight 216 lbs 07/08/2024 BMI 40.81 kg/m2 07/08/2024 Encounters Encounter Location Date Provider Diagnosis [facility] [address] [place] [address] 07/08/2024 Kristina Hargrove Encounter for gynecological examination [...] IF MENOPAUSAL SYMPTOMS WORSEN. Plan Of Treatment Treatment Notes Assessment Notes Encounter for gynecological examination (general) (routine) without abnormal findings PAP TEST WITH HPV TYPING WAS OBTAINED. Encounter for screening mamm ogram for malignant neoplasm of breast REGULAR MAMMOGRAMS AND SBE'S WERE RECOMMENDED. Menopausal and female climacteric states DISCUSSED MENOPAUSE AND SYMPTOMS ASSOCIATED WITH THIS. CALL IF SHE HAS ANY PMB OR IF MENOPAUSAL SYMPTOMS WORSEN. Pending Test Test Name Order Date MM Digital Mammo Screening 07/08/2024 Next Appt Details Follow Up: 1 Year, Reason: Provider Name:Kristina casanova, 07/12/2025 08:40:00 AM, [address], [address], [place], [address], Progress Notes * MARÍA ELENA JOHNSON LDOB: 5 (59 yo F)Acc No.[id number]:07/08/2024 PROGRESS NOTES Patient:?MARÍA ELENA JOHNSON Appointment Provider:?Kristina casanova M.D. :1965???Age:59 Y???Sex:Female D ate:07/08/2024 Address:[address] [place], [place] [id number] Pcp:SHANITA HUBER MD Subjective: * Chief Complaints: * ??? Annual SUPERVISOR SEWER SYSTEM PhysicalAnnua l SUPERVISOR SEWER SYSTEM Physical 50-59* * HPI: ???New/Follow-up Patient Consult:? PAT ENTERED MENOPAUSE IN 2021.? SHE HAS TOLERABLE HOT FLASHES AND NIGHT SWEATS.? SHE DENIES DYSPAREUNIA. S/P LEFT KNEE ARTHROSCOPY IN 2023.? SHE ALSO HAS A HX OF KIDNEY STONES AND OVERACTIVE BLADDER.? SHE SEES HER UROLOGIST NEEDED. PELVIC ULTRASOUND DONE IN 2022 WAS NORMAL. HER LAST MAMMOGRAM DONE IN MAR 2024 SHOWED BREASTS ARE NOT DENSE AND WAS NORMAL. HER LAST PAP TEST IN 2021 WAS NEGATIVE AND HPV NEGATIVE,. SHE HAD A COLONOSCOPY DONE IN 2021.? SHE WILL NEED ANOTHER ONE IN 2026.? HER FATHER HAD COLON CA. MODERNA X 3. ???Annual:? Patient presents for annual exam, ages 50-59. ?General Health Maintenance:?Current breast complaints:?no breast pain, mass, discharge, or skin changes ?Urinary problems:?patient reports no urinary health problems or bowel health problems ?Calcium intake:?takes adequate calcium via diet and supplementation ?Significant SUPERVISOR SEWER SYSTEM problems:?no significant dehydrogenation operator head symptoms or problems * ROS:?general:?no?chest pain.?no?palpitations.?no?headache.?no?cough.?no?shortness of breath.?no?fever.?no?unexplained weight loss.?no?nausea/vomiting.?no?change in bowel movements.?no blood in stool.?no?genitourinary complaints.?no?skin complaints.? * Medical History:? 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 * OB History:?Total pregnancies?3.?Total living children?2.?NVD?2.? * [...] Uncle: Colon Cancer. * Social History:?Tobacco Use:?Tobacco Control (Standard)?Tobacco use:?Former smoker ?How long has it been since you last smoked??Greater than 10 years ???Sexual History:?Sexual History?Had sex in the past 12 months (vaginal, oral, or anal)?: Yes, with: Men only, Prevention strategies discussed:: Other.?Details of Sexual History?Are you sexually active??Yes ???Drugs/Alcohol:?Drugs?Have you used drugs other than those for medical reasons in the past 12 months??No ???Miscellaneous:?Children: yes, 2. ?Domestic violence: no. ?Exercise: yes. ?Home smoke detector use: yes. ?Living with: spouse. ?Marital status: . ?Natural support system: yes. ?Occupation: Works full-time. ?Others at home: yes. ?Sexual abuse: no. ?Sexually active: yes, monogamous relationship. ?Verbal abuse: no. ???Drug/Alcohol:?AUDIT-C (Standard)?Did you have a drink containing alcohol in the past year??Yes ?How often did you have a drink containing alcohol in the past year??Never (0 point) ?How many drinks did you have on a typical day when you were drinking in the past year??1 or 2 drinks (0 point) ?How often did you have six or more drinks on one occasion in the past year??Less than monthly (1 point) ?Points?1 ?Interpretation?Negative * Medications:?TakingTrospium Chloride 20 MG Tablet 1 tablet at bedtime on an empty stomach Orally Once a day metFORMIN HCl 500 MG Tablet 1 tablet with a meal Orally Once a day Gralise 600 MG Tablet 2 tablets Orally two tabs at supper Medication List reviewed and reconciled with the patientTaking Trospium Chloride 20 MG Tablet 1 tablet at bedtime on an empty stomach Orally Once a day Taking metFORMIN HCl 500 MG Tablet 1 tablet with a meal Orally Once a day Taking Gralise 600 MG Tablet 2 tablets Orally two tabs at supper Medication List reviewed and reconciled with the patient * Allergies:?N.K.D.A.no[Allerg ies Verified] Objective: * Vitals:?Ht: 61 in, Wt:216lbs , BMI:40.81Index, BP:116/78mm Hg, Temp:97.4F. * Examination: ???General Exam: ?CONSTITUTIONAL:?NECK/THYROID:?RESPIRATORY:?Auscultation: clear to auscultation bilaterally, Respiratory Effort: normal.?CARDIOVASCULAR:?Auscultation: regular rate and rhythm.?BREAST, Right:?BREAST, Left:?GASTROINTESTINAL:?MUSCULOSKELETAL:?SKIN:?NEURO/PSYCH:?Genitourinary: ?EXTERNAL GENITALIA:?VAGINA:?BLADDER:?URETHRA:?CERVIX:?UTERUS:?ADNEXA:?ANUS AND PERINEUM:? Assessment: * Assessment: 1.?Encounter for gynecologic al examination (general) (routine) without abnormal findings - Z01.419???2.?Encounter for screening mammogram for malignant neoplasm of breast - Z12.31???3.?Menopausal and female climacteric states - N95.1??? Plan: * Treatment: ?LAB: Urinalysis (Collection Date & Time - 07/08/2024)* ? Value Reference Range ?PH 5.0 * ?PROTEIN Neg * ?GLUCOSE Neg * ?BLOOD Neg * DCARLINE Olivares 07/08/2024 09:06:47 AM EST > Notes: PAP TEST WITH HPV TYPING WAS OBTAINED.??2.?Encounter for screening mammogram for malignant neoplasm of breast?Imaging: MM Digital Mammo Screening Notes: REGULAR MAMMOGRAMS AND SBE'S WERE RECOMMENDED.??3.?Menopausal and female climacteric states? Notes: DISCUSSED MENOPAUSE AND SYMPTOMS ASSOCIATED WITH THIS. CALL IF SHE HAS ANY PMB OR IF MENOPAUSAL SYMPTOMS WORSEN.?? * Procedure Codes:? * Preventive Medicine:? ??YOUR PREVENTIVE WELLNESS PLAN:?Osteoporosis prevention?Calcium, D, strength training.?Breast Cancer Screening (Mammogram):?annually.?Cervical Cancer Screening (Pap Smear):?q 3 years with HPV screen.?Colorectal Cancer Screening:?q 10 years.? * Follow Up:?1 Year * Images: Billing Information: * Visit Code:? 85140 Preventive Care New Pt. Age 40-64. 41555 Preventive Care Est Pt. Age 40-64. * Procedure Codes:? * Sign off status: Completed true * Appointment Provider:?Kristina Hargrove M.D. Date:?07/08/2024 Generated for Bert egan/Isaak/eTransmitting on:?07/31/2024 09:22 AM EST History and Physical Notes * HPI (History of Present Illness) Category Sub-Category Detail Notes Category Not es New/Follow-up Patient Consult PAT ENTERED MENOPAUSE IN 2021. SHE HAS TOLERABLE HOT FLASHES AND NIGHT SWEATS. SHE DENIES DYSPAREUNIA. S/P LEFT KNEE ARTHROSCOPY IN 2023. SHE ALSO HAS A HX OF KIDNEY STONES AND OVERACTIVE BLADDER. SHE SEES HER UROLOGIST NEEDED. PELVIC ULTRASOUND DONE IN 2022 WAS NORMAL. HER LAST MAMMOGRAM DONE IN MAR 2024 SHOWED BREASTS ARE NOT DENSE AND WAS NORMAL. HER LAST PAP TEST IN 2021 WAS NEGATIVE AND HPV NEGATIVE,. SHE HAD A COLONOSCOPY DONE IN 2021. SHE WILL NEED ANOTHER ONE IN 2026. HER FATHER HAD COLON CA. MODERNA X 3. Annual General Health Maintenance: Current breast complaints:: no breast pain, mass, discharge, or skin changes Urinary problems:: patient r eports no urinary health problems or bowel health problems Calcium intake:: takes adequ ate calcium via diet and supplementation Significant SUPERVISOR SEWER SYSTEM problems:: n o significant dehydrogenation operator head symptoms or problems Examination Category Sub-Category Detail Notes Category Not es General Exam CONSTITUTIONAL: General Appearan ce:: alert, in no acute distress, normal, well nourished NECK/THYROID: Thyroid:: normal size and shape Inspection/Palpation:: [...]
--- OUTSIDE RECORDS SUMMARY | 2024-07-31 09:23 | XMS_ITS ---
Author Organization Giuseppe Kumar III, MD Address [address] [place] [address] Care Team Providers Care Hat Maker Name Role Phone Giuseppe Kumar Primary Care Provider [phone] REASON FOR VISIT Message Social History Sex Assigned At : Social History Observation Description Sex Assigned At Female Encounters Encounter Location Date Provider Diagnosis Giuseppe Kumar III, MD [address] [place] [address] [place] [address] 04/27/2024 Giuseppe Kumar Plan Of Treatment Next Appt Details Provider Name:Giuseppe Kumar, 12/03/2024 10:45:00 AM, [address] [place] [address] [place], [address], Provider Name:Giuseppe Kumar, 08/03/2025 09:30:00 AM, [address] [place] [address] [place], [address], Progress Notes * Lin JOHNSON LDOB: 5 (59 yo F)Acc No.[id number]:04/27/2024 Patient:?Lin JOHNSON :1965???Age:59 Y???Sex:Female Address:[address] [place] [address] * true * Date:? Generated for Bert egan/Isaak/Raimundosmitting on:?07/31/2024 09:23 AM EST
[2024-07-31 09:56] LABS: Basophils Absolute Auto 0.1 X10*3/uL (0.0-0.2); Basophils Percent Auto 1.5 % (0-2); Eosinophils Absolute Auto 0.1 X10*3/uL (0.0-0.4); Eosinophils Percent Auto 1.1 % (0-4); Hematocrit 42.4 % (37.0-47.0); Imm Gran Abs Auto 0.01 X10*3/uL (0.00-0.03); Imm Gran Pct Auto 0.2 % (0.0-0.4); Lymphocytes Absolute Auto 2.3 X10*3/uL (1.2-4.9); Mean Corpuscular Hemoglobin 29.4 pg (27.0-33.0); Mean Corpuscular Volume 88.9 fL (80.0-98.0); Mean Platelet Volume 10.1 fL (9.4-12.3); Monocytes Absolute Auto 0.4 X10*3/uL (0.1-1.2); Monocytes Percent Auto 7.3 % (2-11); Neutrophils Absolute Auto 2.7 x10*3/uL (2.0-8.3); Neutrophils Percent Auto 48.9 % (45-73); Platelet Count 264 X10*3/uL (160-400); Red Blood Count 4.77 X10*6/uL (4.20-5.50); Red Cell Distribution Width 13.1 % (11.0-16.0); White Blood Count 5.5 X10*3/uL (4.8-10.8)
[2024-07-31 10:03] LABS: Estimated Average Glucose 126 mg/dL; Hemoglobin A1C 152.2086 umol/L; Total Hemoglobin (HGBA1C) 3638.7888 umol/L
[2024-07-31 10:42] LABS: Creatinine Urine 120.18 mg/dL; Microalbum/Creatinine Ratio Ur 6.6 ug/mg cr (<30)
[2024-07-31 10:53] LABS: Alanine Aminotransferase 39 U/L (0-31); Albumin Level 4.1 g/dL (3.5-5.0); Alkaline Phosphatase 70 U/L (39-117); Anion Gap 11 (12-20); Aspartate Amino Transferase 23 U/L (5-31); Bilirubin Total 0.6 mg/dL (0.0-1.0); Blood Urea Nitrogen 14 mg/dL (9-16); Calcium 9.5 mg/dL (8.4-10.2); Carbon Dioxide 28 mmol/L (22-29); Chloride 106 mmol/L (96-108); Cholesterol 183 mg/dL (<200); Estimated Glomerular Filt Rate > 60; Glucose Fasting 108 mg/dL (60-99); HDL Cholesterol 44 mg/dL (>40); LDL Cholesterol Calculated 120 mg/dL (<100); Potassium 4.4 mmol/L (3.3-5.1); Sodium 141 mmol/L (135-145); Total Protein 7.9 g/dL (6.5-8.0); Triglycerides 98 mg/dL (<150)
== END 2024-07-31 08:59 | disposition home or self-care (01) ==
LOC: HO.LAB 08:58
PROVIDERS: PCP Internal Medicine Medical Oncology; Visit Provider Internal Medicine Medical Oncology
DX: Z00.00 Encounter for general adult medical examination without abnormal findings (principal); M17.12 Unilateral primary osteoarthritis, left knee; E66.9 Obesity, unspecified; E78.5 Hyperlipidemia, unspecified; E11.9 Type 2 diabetes mellitus without complications
CPT/HCPCS: 36415; 80053; 80061; 82043; 82570; 83036; 85025

== ENCOUNTER 2024-12-05 09:22 | Outpatient (REF) | payer BC, SELFPAY ==
[2024-12-05 09:46] LABS: MANUAL DIFF FLAG NO
[2024-12-05 10:22] LABS: Estimated Average Glucose 126 mg/dL
[2024-12-05 10:23] LABS: Basophils Absolute Auto 0.1 X10*3/uL (0.0-0.2); Basophils Percent Auto 1.4 % (0-2); Eosinophils Absolute Auto 0.1 X10*3/uL (0.0-0.4); Eosinophils Percent Auto 1.6 % (0-4); Hematocrit 42.6 % (37.0-47.0); Hemoglobin 13.8 g/dl (12.0-16.0); Imm Gran Abs Auto 0.03 X10*3/uL (0.00-0.03); Imm Gran Pct Auto 0.6 % (0.0-0.4); Mean Corpuscular HGB Conc 32.4 g/dl (31.0-35.0); Mean Corpuscular Hemoglobin 28.5 pg (27.0-33.0); Monocytes Absolute Auto 0.4 X10*3/uL (0.1-1.2); Monocytes Percent Auto 7.5 % (2-11); Neutrophils Absolute Auto 2.5 x10*3/uL (2.0-8.3); Neutrophils Percent Auto 48.9 % (45-73); Platelet Count 266 X10*3/uL (160-400); Red Blood Count 4.84 X10*6/uL (4.20-5.50); Red Cell Distribution Width 13.2 % (11.0-16.0); White Blood Count 5.1 X10*3/uL (4.8-10.8)
[2024-12-05 11:10] LABS: Alanine Aminotransferase 39 U/L (0-31); Albumin Level 4.1 g/dL (3.5-5.0); Alkaline Phosphatase 73 U/L (39-117); Anion Gap 11 (12-20); Aspartate Amino Transferase 20 U/L (5-31); Bilirubin Total 0.5 mg/dL (0.0-1.0); Blood Urea Nitrogen 14 mg/dL (9-16); Calcium 9.1 mg/dL (8.4-10.2); Carbon Dioxide 27 mmol/L (22-29); Chloride 106 mmol/L (96-108); Cholesterol 194 mg/dL (<200); Estimated Glomerular Filt Rate > 60; Glucose Fasting 105 mg/dL (60-99); HDL Cholesterol 45 mg/dL (>40); LDL Cholesterol Calculated 123 mg/dL (<100); Potassium 4.6 mmol/L (3.3-5.1); Sodium 139 mmol/L (135-145); Total Protein 7.2 g/dL (6.5-8.0); Triglycerides 132 mg/dL (<150)
== END 2024-12-05 09:23 | disposition home or self-care (01) ==
LOC: HO.LAB 09:22
PROVIDERS: PCP Internal Medicine Medical Oncology; Visit Provider Internal Medicine Medical Oncology
DX: Z00.00 Encounter for general adult medical examination without abnormal findings (principal); M17.12 Unilateral primary osteoarthritis, left knee; E66.9 Obesity, unspecified; E78.5 Hyperlipidemia, unspecified; Z11.9 Encounter for screening for infectious and parasitic diseases, unspecified; Z13.1 Encounter for screening for diabetes mellitus
CPT/HCPCS: 36415; 80053; 80061; 83036; 85025

== ENCOUNTER 2025-03-17 07:50 | Outpatient (REF) | payer BC, SELFPAY ==
--- OUTSIDE RECORDS SUMMARY | 2024-07-27 11:30 | XMS_ITS ---
Author Organization Giuseppe Kumar III, MD Address [address] [place] [address] [place] [address] Care Team Providers Care Curbing Stonecutter Name Role Phone Dr. Giuseppe Kumar III Primary Care Provider REASON FOR VISIT annual exam Social History Sex Assigned At : Social History Observation Description Sex Assigned At Female Encounters Encounter Location Date Provider Diagnosis Giuseppe Kumar III, MD [address] [place] [address] [place] [address] 07/27/2024 Giuseppe Kumar Plan Of Treatment Next Appt Details Provider Name:Giuseppe Kumar , 03/19/2025 04:30:00 PM, [address] [place] [address] [place], [address], Provider Name:Giuseppe Kumar , 08/03/2025 09:30:00 AM, [address] [place] [address] [place], [address], Progress Notes * Lin JOHNSON LDOB: 5 (60 yo F)Acc No.[id number]:07/27/2024 Progress Notes Patient: D EXTER, Lin L Provider: Gi Kumar MD :1965 A ge:59 Y S ex:Female Date:07/27/2024 Address:[address] [place] [address] Rup[id number] Subjective: * Chief Complaints: * 1 . [...] MD Date: 0 07/27/2024 Generated for Bert egan/Isaak/Xavieritting on: 1 07:53 AM EDT
--- OUTSIDE RECORDS SUMMARY | 2024-07-30 05:15 | XMS_ITS ---
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 Giuseppe Kumar III [...] Panel Reviewed date:11/08/2024 08:18:13 PM Interpretation: Performing Lab:[facility], [address] [place] [phone] Notes/Report: Triglycerides 98 <150 mg/dL Desirable Triglyceride: [...] Random Reviewed date:11/08/2024 08:18:13 PM Interpretation: Performing Lab:[address] [address] Notes/Report: Creatinine Urine 120.18 Microalbumin Urine 8.0 Microalbum/Creatinine Ratio Ur 6.6 <30 ug/mg cr Albumin/Creatinine Ratio Reference Ranges: Normal: < 30 ug/mg creatinine Microalbuminuria: 30 - 300 ug/mg creatinine Clinical Albuminuria: > 300 ug/mg creatinine Hemoglobin A1c Reviewed date:11/08/2024 08:18:13 PM Interpretation: Performing Lab:[facility], [address] [place] [phone] Notes/Report: Hemoglobin A1c % 6.0 <6.0 % [...] average glucose, using the formula of the Q4E-Puoasny Average Glucose study (ADAG), Diabetes Care, Vol.31,#8, Jan. 2007 Reason For Referral Reason over due for her col onoscopy Has been seen in the past Diagnosis 1 Encounter for screen ing for malignant neoplasm of colon (Z12.11) Referral Organization Giuseppe Kumar III, MD Referring Provider First Name Giuseppe Referring Provider Last Name Kumar Referring Provider Speciality Internal M edicine Referred Provider [facility], Gastroenterology Referred Provider Specialty Gastroentero logy General Notes Harmony Bucio CARLOS 08/03 04:50:11 PM > ref/demo/progress note faxed to [facility] gastro, Harmony Bucio CARLOS 08/18/2024 03:10:59 PM >Called [facility] gastro they have referral and will be calling patient within the next few weeks to set up colonscopy, Rupinder Harmony CARLOS 08/27/2024 02:09:02 PM >Called [facility] gastro they have not called patient as of yet for appt they will put in a note to have the crap game box person to call her with appt, Harmony Bucio CARLOS 10/05/2024 02:45:51 PM > [facility] they stated they have not called pt as of yet will send another message to crap game box person to set pt up for appt, Ramona [...] at 8am with Dr De Jesus in [place] . Referral Priority Routine Referral Appointment Date [...] Date Provider Diagnosis Giuseppe Kumar III, MD [address] [place] [address] [address] [facility] [address] 07/30/2024 Giuseppe Kumar Localized osteoarthr itis of [...] HCl 500 MG TAKE 1 TABLET BY [facility] EVERY DAY WITH A MEAL Gralise 600 [...] Has been seen in the past, Gastroenterology [facility] 07/30/2024 07/30/2024, diabetic eye care check for Cataracts, [facility] Next Appt Details Follow Up: 4 Months, Reason: ov review labs Provider Name:Giuseppe Kumar , 03/19/2025 04:30:00 PM, [address] [place] [address] [address] [place], [place], [address], Provider Name:Giuseppe Kumar , 08/03/2025 09:30:00 AM, [address] [place] [address] [place], [address], Progress Notes * Lin JOHNSON LDOB: 5 (59 yo F)Acc No.[id number]:07/30/2024 Progress Notes Patient: Lin KRAFT Provider: Gi Kumar MD :1965 A ge:59 Y S ex:Female Date:07/30/2024 Address:[address] [place], [place] [phone] Subjective: * Chief Complaints: * A nnual [...] to auscultation . BREASTS: D one by [facility], Dr. Iraheta. ABDOMEN: b owel sounds normal, no ascites, no organomegaly, no mass, centripital obesity. RECTAL EXAM: D one by [facility]. MUSCULOSKELETAL: e xtremities unremarkable, no clubbing, cyanosis [...] Microalbumin, Random L AB: Hemoglobin A1c Referral To:[facility], Cataracts Reason:diabetic eye care check for Cataracts 4. O besity L AB: PROFILE, FASTING (COMPREHENSIVE METABOLIC) L AB: CBC w DIFF L AB: Lipid Panel L AB: Microalbumin, Random L AB: Hemoglobin A1c 5. O thers Continue metFORMIN HCl Tablet, 500 MG, TAKE 1 TABLET BY MOUTH EVERY DAY WITH A MEAL. ? Referral To:Gastroenterology [facility] Gastroenterology Reason:over due for [...] MD Date: 0 07/30/2024 Generated for Bert egan/Isaak/Marie on: 1 07:53 AM EDT History and Physical Notes * HPI (History [...] anicteric PERIPHERAL PULSES: normal BREASTS: Done by [facility], Dr. Keon robbins MUSCULOSKELETAL: extremities unremark able, no clubbing, cyanosis or edema, Crepitus, left knee, mild decrease of range of motion lumbar spine LYMPH NODES: no enlarged lymph no ector,spleen normal RECTAL EXAM: Done by [facility] PSYCH: alert, oriented ORAL CAVITY: normal, unremarkable Consultation Request Notes Referral Date Referring Provider Referred Provider Not jayleen 07/30/2024 Giuseppe Kumar [facility], Gastroenterology over due for her colonoscopy Has been seen in the past 07/30/2024 [facility], [facility] eye care check for Cataracts
--- OUTSIDE RECORDS SUMMARY | 2024-12-03 13:00 | XMS_ITS ---
Author Organization Giuseppe Kumar III, MD Address [address] [place] [address] [place] [address] Care Team Providers Care Geological Drafter Name Role Phone Dr. Giuseppe Kumar III Primary Care Provider REASON FOR VISIT follow up Social History Sex Assigned At : Social History Observation Description Sex Assigned At Female Encounters Encounter Location Date Provider Diagnosis Giuseppe Kumar III, MD [address] [place] [address] [place] [address] 12/03/2024 Giuseppe Kumar Plan Of Treatment Next Appt Details Provider Name:Giuseppe Kumar , 03/19/2025 04:30:00 PM, [address] [place] [address] [place], [address], Provider Name:Giuseppe Kumar , 08/03/2025 09:30:00 AM, [address] [place] [address] [place], [address], Progress Notes * Lin JOHNSON LDOB: 5 (60 yo F)Acc No.[id number]:12/03/2024 Progress Notes Patient: D EXTER, Lin L Provider: Gi Kumar MD :1965 A ge:59 Y S ex:Female Date:12/03/2024 Address:[address] [place] [address] Rup[id number] Subjective: * Chief Complaints: * 1 . [...] 12/03/2024 Generated for Bert egan/Isaak/Xavieritting on: 1 07:53 AM EDT
--- OUTSIDE RECORDS SUMMARY | 2024-12-16 10:30 | XMS_ITS ---
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 Giuseppe Kumar III [...] HCl 500 MG TAKE 1 TABLET BY [facility] EVERY DAY WITH A MEAL Active Trospium [...] Problem Status W/U Status Risk Notes Problem 663265868914085 Localized osteoarthritis of left knee (M17.12) Active confirmed Her left knee has healed well after surgery and is much less painful. He remains under the care of orthopedics. Problem [id number] Type 2 diabetes mellitus without complication, without long-term current use of insulin (E11.9) Active confirmed Her hemoglobin A1c was 7.5 in February 2021. With the metformin has normalized and she has done well. Vital Signs Temperature 97.4 degrees Fahrenheit 12/17/19 25 Blood pressure systolic 137 mm Hg 12/17/19 25 Blood pressure diastolic 82 mm Hg 025 Heart Rate 88 /min 12/16/2024 Height 62 in 12/16/2024 Weight 212 lbs 12/16/2024 BMI 38.77 kg/m2 12/16/2024 Encounters Encounter Location Date Provider Diagnosis Giuseppe Kumar III, MD [address] [place] [address] [place] [address] 12/16/2024 Giuseppe Kumar Obesity E66.9 ; Lumb [...] HCl 500 MG TAKE 1 TABLET BY [facility] EVERY DAY WITH A MEAL Trospium Chloride [...] Months, Reason: OV Provider Name:Giuseppe Kumar , 03/19/2025 04:30:00 PM, [address] [place] [address] [address], [place], [address], Provider Name:Giuseppe Kumar , 08/03/2025 09:30:00 AM, [address] [place] [address] [address], [place], [address], Progress Notes * Lin JOHNSON LDOB: 5 (59 yo F)Acc No.[id number]:12/16/2024 Progress Notes Patient: Lin KRAFT Provider: Gi Kumar MD :1965 A ge:59 Y S ex:Female Date:12/16/2024 Address:[address] [place] [address] [place] [id number] Subjective: * Chief Complaints: * P ain [...] 46 (Ref Range: >40 mg/dL) * Lab:[facility] P[facility] Fast * Collection Date 12/05/2024 07/31/2024 [...] MD Date: 0 12/16/2024 Generated for Soniai jignesh/Isaak/eTransmitting on: 1 07:53 AM EDT History and [...]
--- OUTSIDE RECORDS SUMMARY | 2025-01-25 07:00 | XMS_ITS ---
Author Organization Giuseppe Kumar III, MD Address [address] [place] [address] [place] [address] Care Team Providers Care Vault Worker Name Role Phone Dr. Giuseppe Kumar III [...] HCl 500 MG TAKE 1 TABLET BY [facility] EVERY DAY WITH A MEAL Active Social [...] Date Provider Diagnosis Giuseppe Kumar III, MD [address] [place] [address] [place] [address] 01/25/2025 Giuseppe Kumar Localized osteoarthr itis of [...] HCl 500 MG TAKE 1 TABLET BY [facility] EVERY DAY WITH A MEAL Pending Test Test Name Order Date PROFILE, FASTING (COMPREHENSIVE METABOLI C) 01/25/2025 LIPID PANEL 01/25/2025 CBC w DIFF 01/25/2025 Hemoglobin A1c 01/25/2025 Next Appt Details Follow Up: As Scheduled, Ann son: OV Provider Name:Giuseppe Kumar , 03/19/2025 04:30:00 PM, [address] [place] [address] [address], [place], [address], Provider Name:Giuseppe Kumar , 08/03/2025 09:30:00 AM, [address] [place] [address] [address], [place], [address], Progress Notes * Lin JOHNSON LDOB: 5 (59 yo F)Acc No.[id number]:01/25/2025 Progress Notes Patient: Lin KRAFT Provider: Gi Kumar MD :1965 A ge:59 Y S ex:Female Date:01/25/2025 Address:[address] [place] [id number] Subjective: * Chief Complaints: * B ack pain since 01-16IBSObesityDepressionLumbar radiculopathyDiabetes * HPI: C OVID-19 Screening: on metformin, stopped gralise on wily, left knee not a big problem. She returns for medical management after 6 weeks. She remains on metformin for her diabetes. She continues to have low back pain. [...] 46 (Ref Range: >40 mg/dL) * Lab:[facility] [place]. Pane l Fast * Collection Date 12/05/2024 [...] Kumar MD Date: 0 01/25/2025 Generated for Soniai jignesh/Isaak/eTransmitting on: 1 07:54 AM EDT History and Physical Notes * [...]
--- OUTSIDE RECORDS SUMMARY | 2025-03-17 07:54 | XMS_ITS | Clinical Summary ---
Author Organization [facility] [address] [facility] Address [address] [place] [address] Phone Care Team Providers Care Chemist Physical Name Role Phone Giuseppe Kumar MD Primary Care Provider [phone] Allergies Active Allergy Reactions Criticality Noted Date Comments Banana 08/06/2024 Medications metFORMIN (GLUCOPHAGE) 500 mg tablet Take 1 tablet (500 mg total) by mouth 1 (one) time each day. with food 5 Active trospium (SANCTURA) 20 mg tablet Take 1 tablet (20 mg total) by mouth 2 (two) times a day. 5 Active Gralise 600 mg 24 hr tablet TAKE THREE TABLETS BY MOUTH EVERY DAY WITH EVENING MEAL 5 Active bisacodyL (DULCOLAX) 5 mg EC tablet Take 2 tablets by mouth right before beginning bowel prep. See instructions provided by the office 2 tablet 5 Active polyethylene glycol (Golytely) 236-22.74-6.74 -5.86 gram solution Take 4L by mouth once for one dose. May substitue any PEG. Starting at 2PM the day before your procedure drink 1 8oz glasses at your own pace until you complete half of the gallon. Finish 2nd half of the gallon at 8PM. 4000 mL 5 Active Encounters Date Type Department Care Team Description 01/04/2025 8:43 AM EDT Anesthesia Event [facility] Endoscopy [address] [place] [address] Nadir Romero DO 01/04/2025 7:31 AM EDT - 01/04/2025 11:59 PM EDT Hospital Encounter [facility] Endoscopy [address] [place] [address] Prince Castellon MD Walsh, Michael, DO Colon cancer screening Discharge Disposition: Home or Self Care from Last 3 Months Surgical History Surgery Date Site/Laterality Comments BREAST REDUCTION Bilateral BACK SURGERY Medical History Medical History Date Comments Family history of colon cancer Diverticulitis IBS (irritable bowel syndrome) Diabetes mellitus ([facility] V24, [facility] V28) Lumbar stenosis Social History Tobacco Use Types Packs/Day Years Used Date Smoking Tobacco: Never Assessed Interpersonal Safety Answer Date Record ed Physical Abuse Unrecognized value 01/04/2025 Verbal Abuse Unrecognized value 01/04/2025 Comments No Sex and Gender Information Value Date Recorded Sex Assigned at Not on file Legal Sex Female 3:30 PM EST Gender Identity Not on file Sexual Orientation Not on file Obstetrics History Last Filed Vital Signs Vital Sign Reading Time Taken Comments Blood Pressure 118/75 01/04/2025 9:21 AM EDT Pulse 66 01/04/2025 9:21 AM EDT Temperature 35.9 C (96.6 F) 01/04/2025 9:01 AM EDT Respiratory Rate 14 01/04/2025 9:21 AM EDT Oxygen Saturation 98% 01/04/2025 9:21 AM EDT Inhaled Oxygen Concentration - - Weight 95.7 kg (211 lb) 01/04/2025 8:13 AM EDT Height 157.5 cm (5' 2 ) 01/04/2025 8:13 AM EDT Body Mass Index 38.59 01/04/2025 8:13 AM EDT Plan of Treatment Health Maintenance Due Date Last Done Comments Breast Cancer Screening 1965 DTaP,Tdap,and Td Vaccines (1 - Tdap) 02/07/1984 Cervical Cancer Screening: Pap Smear 1986 Pneumococcal Vaccine: 50+ Years (1 of 1 - PCV) 2015 Zoster Vaccines (2 of 2) 06/03/2020 04/08/2020 Depression Screening 06/10/2024 HIV Screening 08/05/2024 Hepatitis C Screening 08/05/2024 Social Influencers of Health Screening 08/05/2024 Influenza Vaccine (#1) 2025 , 03/27/2023, 05/01/2022, Additional history exists Colorectal Cancer Screening: Colonoscopy 01/04/2030 01/04/2025 RSV Immunization Adult Patients (1 - 1-dose 75+ series) 02/07/2040 COVID-19 Vaccine Completed 07/21/2024, 12/2022, 04/14/2021, Additional history exists HIB Vaccines Aged Out No longer eligi ble based on patient's age to complete this topic HPV Vaccines Aged Out No longer eligi ble based on patient's age to complete this topic Hepatitis A Vaccines Aged Out No long er eligible based on patient's age to complete this topic Hepatitis B Vaccines Aged Out No long er eligible based on patient's age to complete this topic IPV Vaccines Aged Out No longer eligi ble based on patient's age to complete this topic MMR Vaccines Aged Out No longer eligi ble based on patient's age to complete this topic Meningococcal ACWY Vaccine Aged Out N o longer eligible based on patient's age to complete this topic Meningococcal B Vaccine Aged Out No l onger eligible based on patient's age to complete this topic RSV Immunization Patients Under 20 months Aged Out No longer eligible based on patient's age to complete this topic Varicella Vaccines Aged Out No longer eligible based on patient's age to complete this topic Procedures Procedure Name Priority Date/Time Associated Diagnosis Comments COLONOSCOPY Routine 01/04/2025 9:00 AM EDT Colon cancer screening from Last 3 Months Results * COLONOSCOPY Anesthesia - MAC; [facility] ENDOSCOPY (01/04/2025 9:00 AM EDT) Anatomical Region Laterality Modality Other 01/04/2025 8:36 AM EDT Impressions 01/04/2025 9:01 AM EDT - Non-bleeding internal hemorrhoids. - The examination was otherwise normal on direct and retroflexion views. - No specimens collected. Recommendation: - Discharge patient to home. - Resume previous diet. - Continue present medications. - Repeat colonoscopy in 5 years for surveillance. - Return to GI office PRN. Narrative 01/04/2025 9:01 AM EDT [facility] GI Patient Name: Lin Johnson Procedure Date: 01/04/2025 8:36 AM Date of : 1965 Age: 59 Gender: Female Note Status: Finalized Attending MD: Prince Castellon MD, Procedure Date No Time: 01/04/2025 Procedure: Colonoscopy Indications: Colon cancer screening in patient at increased risk: Family history of 1st-degree relative with colon polyps, Screening in patient at increased risk: Family history of 1st-degree relative with colorectal cancer Providers: Prince Castellon MD Referring MD: Prince Castellon MD Medicines: Monitored Anesthesia Care Complications: No immediate complications. Estimated Blood Loss: Estimated blood loss: none. Procedure: Pre-Anesthesia Assessment: - ASA Grade Assessment: II - A patient with mild systemic disease. - After reviewing the risks and benefits, the patient was deemed in satisfactory condition to undergo the procedure. After I obtained informed consent, the scope was passed under direct vision. Throughout the procedure, the patient's blood pressure, pulse, and oxygen saturations were monitored continuously.The Colonoscope was introduced through the anus and advanced to the cecum, identified by appendiceal orifice and ileocecal valve. The colonoscopy was performed without difficulty. The patient tolerated the procedure well. The quality of the bowel preparation was good. Findings: Non-bleeding internal hemorrhoids were found during retroflexion. The hemorrhoids were small. The exam was otherwise without abnormality on direct and retroflexion views. Procedure Code(s): --- Professional --- G0105, Colorectal cancer screening; colonoscopy on individual at high risk Diagnosis Code(s): --- Professional --- Z83.71, Family history of colonic polyps Z80.0, Family history of malignant neoplasm of digestive organs CPT copyright 2020 [employer]. All rights reserved. The codes documented in this report are preliminary and upon chronometer adjuster review may be revised to meet current compliance requirements. Prince Castellon MD 01/04/2025 9:00:51 AM This report has been signed electronically.Prince Castellon MD Number of Addenda: 0 Note Initiated On: 01/04/2025 8:36 AM Scope In: Scope Out: Endoscopy Department at [facility] - [address] [place] [phone] Procedure Note Prince Castellon MD - 01/04/2025 [facility] GI Patient Name: Lin Johnson Procedure Date: 01/04/2025 8:36 AM Date of : 1965 Age: 59 Gender: Female Note Status: Finalized Attending MD: Prince Castellon MD, Procedure Date No Time: 01/04/2025 Procedure: Colonoscopy Indications: Colon cancer screening in patient at increasedrisk: Family history of 1st-degree relative with colon polyps, Screening in patient at increased risk:Family history of 1st-degree relative with colorectalcancer Providers: Prince Castellon MD Referring MD: Prince Castellon MD Medicines: Monitored Anesthesia Care Complications: No immediate complications. Estimated Blood Loss: Estimated blood loss: none. Procedure: Pre-Anesthesia Assessment: - ASA Grade Assessment: II - A patient with mild systemic disease. - After reviewing the risks and benefits, thepatient was deemed in satisfactory condition to undergo the procedure. After I obtained informed consent, the scope was passed under direct vision. Throughout theprocedure, the patient's blood pressure, pulse, and oxygen saturations were monitored continuously.The Colonoscope was introduced through the anus and advanced to the cecum, identified by appendiceal orifice and ileocecal valve. The colonoscopy was performed without difficulty. The patient tolerated the procedure well. The quality of the bowel preparation was good. Findings: Non-bleeding internal hemorrhoids were found during retroflexion. The hemorrhoids were small. The exam was otherwise without abnormality ondirect and retroflexion views. Procedure Code(s): --- Professional --- G0105, Colorectal cancer screening; colonoscopy on individual at high risk Diagnosis Code(s): --- Professional --- Z83.71, Family history of colonic polyps Z80.0, Family history of malignant neoplasm of digestive organs CPT copyright 2020 [employer]. All rights reserved. The codes documented in this report are preliminary and upon chronometer adjuster reviewmay be revised to meet current compliance requirements. Prince Castellon MD 01/04/2025 9:00:51 AM This report has been signed electronically.Prince Castellon MD Number of Addenda: 0 Note Initiated On: 01/04/2025 8:36 AM Scope In: Scope Out: Endoscopy Department at [facility] - [address] [place] [phone] IMPRESSION: - Non-bleeding internal hemorrhoids. - The examination was otherwise normal on directand retroflexion views. - No specimens collected. Recommendation: - Discharge patient to home. - Resume previous diet. - Continue present medications. - Repeat colonoscopy in 5 years for surveillance. - Return to GI office PRN. Prince Castellon MD GI~PROCEDURE ORDERABLES Final Result from Last 3 Months Insurance Care Teams Chemist Physical Relationship Specialty Start Date End Date Giuseppe Kumar MD [address] [place] [id number] PCP - General Oncology 08/05/24
--- OUTSIDE RECORDS SUMMARY | 2025-03-17 07:54 | XMS_ITS | Patient Health Record ---
Author Organization [employer] Address [address] [place] [address] Care Team Providers Care Balance Clerk Name Role Phone SHANITA HUBER MD Primary Care Provider Unavailab ben Kristina Hargrove Unavailable [phone] Allergies No Known Allergies Results Component Value Reference Range Notes Urinalysis Reviewed date:07/08/2024 09:07:00 AM Interpretation: Performing Lab: Notes/Report: PH 5.0 PROTEIN Neg GLUCOSE Neg BLOOD Neg [id number] IGP No Culture 30 Plus Reviewed date:07/09/2024 06:26:29 PM Interpretation: Performing Lab:[facility], [address], [address], [place], Phone - [phone], Director - [facility] Notes/Report: Clinical Information:Vaginal/Cervical, LMP: Men o [id number] LMP / Prev Treat...[id number]=[id number] Dates / Results....06/07/22 NIL, Neg HPV Other..............Post Menopausal No. of containers..01 ThinPrep Vial DIAGNOSIS: NEGATIVE FOR IN TRAEPITHELIAL LESION OR MALIGNANCY. Specimen adequacy: Satisfactory for evaluation. Endocervical and/or squamous metaplastic cells (endocervical component) are present. Clinician provided ICD10: Z0 1.419 Performed by: Kell james, Shipping Helper (ASCP) . . Note: The Pap smear [...] Patricia Esparza, [address], [place], Phone - [phone], Director - [facility] Notes/Report: Clinical Information:Vaginal/Cervical, LMP: Men o [id number] LMP / Prev Treat...ZLH=[id number] Dates / Results....06/07/22 NIL, Neg HPV Other..............Post Menopausal No. of containers..01 ThinPrep Vial Reason For Referral No Information Medications Medication SIG (Take, Route, Fr equency, Duration) Notes Start Date End Date Status Trospium Chloride 20 MG 1 tablet at bedt celina on an empty stomach Orally Once a day Active metFORMIN HCl 500 MG 1 tablet with a latonya l Orally Once a day; Duration: 30 day(s) Active Gralise 600 MG 2 [...] W/U Status Risk Notes Problem Urinary incontinence (483161811) Unspecified urinary incontinence (R32) Active confirmed Problem Morbid obesity (disorder) (267649569) Morbid (severe) obesity due to excess calories (E66.01) Active confirmed Problem Disorder of breast (70750127) Disorder of breast, unspecified (N64.9) Active confirmed Problem Unspecified menopausal and perimenopausal disorder (N95.9) Active confirmed Problem Menopause (602060438) Menopausal and female climacteric states (N95.1) Active confirmed Problem Esophageal reflux (563539599) Esophageal reflux (530.81) Active confirmed Major Problem Irritable bowel syndrome (27752273) Irritable bowel syndrome (564.1) Active confirmed Major Problem Gynecological examination normal (354264862203439) Routine gynecological examination (V72.31) Active confirmed Major Vital Signs Temperature 97.4 degrees Fahrenheit 07/08/2024 Blood pressure diastolic 78 mm Hg 07/08/2024 Height 61 in 07/08/2024 Blood pressure systolic 116 mm Hg 07/08/2024 Weight 216 lbs 07/08/2024 BMI 40.81 kg/m2 07/08/2024 Encounters Encounter Location Date Provider Diagnosis [address] [place] [address] 07/08/2024 Kristina Hargrove Encounter for gynecological examination [...] Provider Name:Kristina casanova, 07/12/2025 08:40:00 AM, [address], [address], [place], [address], Insurance Providers Payer Name Payer Address Payer Phone Subscriber Number Group Number Insured Name Patient Relationship to Insured Coverage Start Date Coverage End Date [employer] [address] [place] [address] [id number] RENETTA JOHNSON Spouse - patient is the [...]
--- OUTSIDE RECORDS SUMMARY | 2025-03-17 07:54 | XMS_ITS | Patient Health Record ---
[facility] Organization [facility] Address [address] [place] [address] Care Team Providers Care Upfitter Name Role Phone Giuseppe Kumar MD Primary Care Provider Unavailab Vinh Perales Unavailable [phone] Reason For Referral No Information Medications Medication SIG (Take, Route, Fr equency, Duration) Notes Start Date End Date Status Gabapentin 100 MG Orally Three times a day Active Naproxen 500 MG 1 tablet Orally PRN Active Social History Tobacco Use: Social History Observation Description Date Details (start date - stop date) Former Smoker NA - NA Tobacco Use/Smoking Question Answer Notes Are you a: former smoker When did you start smoking? STARTED LATE 20S When did you stop smoking? QUIT AT 30 Additional Findings: Tobacco User Light cigarett e smoker ((1-9 cigs/day) Additional Findings: Tobacco Non-User Current no n-smoker Alcohol Screen Question Answer Notes Did you have a [...] (0 point) How often did you have 6 or more drinks on one occasion in the past year? Never (0 point) Points 1 Interpretation Negative Tobacco use other than smoking: Question Answer Notes Are you an other tobacco user? No Plan Of Treatment No Information Insurance Providers Payer Name Payer Address Payer Phone Subscriber Number Group Number Insured Name Patient Relationship to Insured Coverage Start Date Coverage End Date [facility] [address] [place] [address] [phone] [id number] Cornel Roque Spouse - patient is the spouse of the insured 6 Medical (General) History Medical History History ICD Code Arthritis Back,Hip,and Knee pain Headaches Reflux ( GERD) Surgical History Surgery Date(Month/Year) back surgery / HERNIA ON L3 , L4 DISC
--- OUTSIDE RECORDS SUMMARY | 2025-03-17 07:54 | XMS_ITS | Patient Health Record ---
Author Organization Giuseppe Kumar III, MD Address [address] [place] [address] Care Team Providers Care Manager Shell Name Role Phone Dr. Giuseppe Kumar III Primary Care Provider [phone] Allergies Allergen (clinical drug ingredient) Drug/Non Drug [...] Panel Reviewed date:11/08/2024 08:18:13 PM Interpretation: Performing Lab:[facility], [address] [place] [phone] Notes/Report: Triglycerides 98 <150 mg/dL Desirable Triglyceride: [...] Random Reviewed date:11/08/2024 08:18:13 PM Interpretation: Performing Lab:[address] [address] Notes/Report: Creatinine Urine 120.18 Microalbumin Urine 8.0 Microalbum/Creatinine Ratio Ur 6.6 <30 ug/mg cr Albumin/Creatinine Ratio Reference Ranges: Normal: < 30 ug/mg creatinine Microalbuminuria: 30 - 300 ug/mg creatinine Clinical Albuminuria: > 300 ug/mg creatinine Hemoglobin A1c Reviewed date:11/08/2024 08:18:13 PM Interpretation: Performing Lab:[address] [address] Notes/Report: Hemoglobin A1c % 6.0 <6.0 % [...] average glucose, using the formula of the R0M-Xovpjoc Average Glucose study (ADAG), Diabetes Care, Vol.31,#8, Jan. 2007 Complete Blood Count Auto Di ff Reviewed date:04/20/2024 01:30:01 PM Interpretation: Performing Lab:[facility], [address] [place] [phone] Notes/Report: White Blood Count 5.6 4.8-10.8 X10*3/uL Red Blood Count 4.80 4.20-5.50 X10*6/uL Hemoglobin 14.0 12.0-16.0 g/dl Hematocrit 42.4 37.0-47.0 % Mean Corpuscular Volume 88.3 80.0-98.0 fL Mean Corpuscular Hemoglobin 29.2 27.0-33.0 pg Mean Corpuscular HGB Conc 33.0 31.0-35.0 g/dl Red Cell Distribution Width 13.3 11.0-16.0 % Platelet Count 264 160-400 X10*3/uL Mean Platelet Volume 9.9 9.4-12.3 fL Neutrophils Percent Auto 45.0 45-73 % Imm Gran Pct Auto 0.2 0.0-0.4 % Lymphocytes Percent Auto 44.1 20-40 % Monocytes Percent Auto 7.1 2-11 % Eosinophils Percent Auto 2.5 0-4 % Basophils Percent Auto 1.1 0-2 % NRBC Pct Auto 0.0 0.0-0.2 /100WBC Neutrophils Absolute Auto 2.5 2.0-8.3 x10*3/u L Imm Gran Abs Auto 0.01 0.00-0.03 X10*3/uL Lymphocytes Absolute Auto 2.5 1.2-4.9 X10*3/u L Monocytes Absolute Auto 0.4 0.1-1.2 X10*3/uL Eosinophils Absolute Auto 0.1 0.0-0.4 X10*3/u L Basophils Absolute Auto 0.1 0.0-0.2 X10*3/uL NRBC Abs Auto 0.000 0.0-0.012 X10*3/uL Comprehensive [place]. Panel Fa st Reviewed date:04/20/2024 01:30:01 PM Interpretation: Performing Lab:[facility], [address] [place] [address], [place] [address] Notes/Report: Sodium 145 135-145 mmol/L Potassium 4.3 3.3-5.1 mmol/L Chloride 109 96-108 mmol/L Carbon Dioxide 27 22-29 mmol/L Anion Gap 13 12-20 Blood Urea Nitrogen 9 9-16 mg/dL Creatinine 0.70 0.5-1.4 mg/dL Estimated Glomerular Filt Rate > 60 NOTE: For -[place] individuals, multiply the result by 1.210. Chronic Kidney Disease: Estimated GFR < 60 mL/min/1.73m2 Severe Kidney Disease: Estimated GFR < 15 mL/min/1.73m2 Glucose Fasting 105 60-99 mg/dL A fasting glucose from 100-125 mg/dl is considered impaired (pre-diabetes). Calcium 9.5 8.4-10.2 mg/dL Bilirubin Total 0.4 0.0-1.0 mg/dL Aspartate Amino Transferase 32 5-31 U/L Alanine Aminotransferase 41 0-31 U/L Total Protein 7.4 6.5-8.0 g/dL Albumin Level 4.1 3.5-5.0 g/dL Alkaline Phosphatase 68 39-117 U/L Lipid Panel Reviewed date:04/20/2024 01:30:01 PM Interpretation: Performing Lab:[address] [address] Notes/Report: Triglycerides 117 <150 mg/dL Desirable Triglyceride: less than 150 mg/dL Borderline High Triglyceride 150-199 mg/dL High Triglyceride: 200-499 mg/dL Very High Triglyceride: greater than or equal to 5OO mg/dL Cholesterol 178 <200 mg/dL Desirable Cholesterol: less than 200 mg/dL Borderline High Cholesterol: 200-239 mg/dL High Cholesterol: greater than 239 mg/dL LDL Cholesterol Calculated 109 <100 mg/dL Desirable LDL: less than 100 mg/dL Near Optimal/Above Optimal LDL: 110-129 mg/dL Borderline High LDL: 130-159 mg/dL High LDL: 160-189 mg/dL Very High LDL: greater than or equal to 190 mg/dL HDL Cholesterol 46 >40 mg/dL Desirable HDL: greater than 40 mg/dL Note: This HDL assay may give artificially low results in patients with liver disease. Microalbumin, Random Reviewed date:04/20/2024 01:30:01 PM Interpretation: Performing Lab:[address] [address] Notes/Report: Creatinine Urine 43.59 Microalbumin Urine < 5.0 Microalbum/Creatinine Ratio Ur TNP <30 ug/mg cr Unable to calculate albumin/creatinine ratio due to low microalbumin or creatinine result. Hemoglobin A1c Reviewed date:04/20/2024 01:30:00 PM Interpretation: Performing Lab:[facility], [address] [facility], [place] [address] Notes/Report: Hemoglobin A1c % 6.1 <6.0 % Hemoglobin A1C Reference Range Adults: 4.8 - 6.0 % Non diabetic: < 6.0 % Goal: < 7.0 % Additional Action Suggested: > 8.0 % Note: Hemoglobin A1c results are invalid for patients with abnormal amounts of HbF. Blood transfusions may impact the HbA1c concentration in the patient sample. Estimated Average Glucose 128 eAG = Estimated average glucose which is %A1C expressed as average glucose, using the formula of the E1Y-Dzheucx Average Glucose study (ADAG), Diabetes Care, Vol.31,#8, Jan. 2007 MM tomosynthesis screening B I Reviewed date:06/09/2024 11:42:50 AM Interpretation: Performing Lab: Notes/Report: [address] [place] [address] Mammography Report Signed Patient: Lni Johnson MR#: [id number] 27 : 1965 Acct:[id number] Age/Sex: 59 / F ADM Date: 05/27/24 Loc: HO.MAMMO Attending Dr: Giuseppe Kumar MD Ordering Physician: Giuseppe Kumar MD Results: 1Negativ e Date of Service: 05/27/24 Follow Up: 1 Year From Orig ina Mammogram Procedure(s): MM tomosynthesis screening BI Accession Number(s): [id number] cc: Giuseppe Kumar MD EXAMINATION: MM SCREENING DIGITAL BREAST TOMOSYNTHESIS, BILATERAL CLINICAL INFORMATION: Screening. Asymptomatic. COMPARISON: Mammography: Comparison is made with available priors TECHNIQUE: Digital breast mammography with tomosynthesis is performed in both the craniocaudal and mediolateral oblique views along with computer-aided detection (CAD). FINDINGS: There are scattered areas of fibroglandular density (ACR BI-RADS breast composition Category b). There are no significant masses, abnormal calcifications, or other abnormalities. MM/MM tomosynthesis screening BI IMPRESSION: No mammographic evidence of malignancy. ASSESSMENT: BI-RADS BI-RADS 1 - Negative RECOMMENDATION: Routine annual mammography screening. 1 year F/U This examination should not preclude the clinical evaluation of a suspicious palpable abnormality. This patient's information was entered into a reminder system with a target due date for their next mammogram. Electronically signed by: Xin Denton DO 06/08/2024 12:43 PM EST RP Dictated By: Xin Denton DO Signed By: <Electronically signed by Xin Denton DO in OV> 06/08/24 1243 DD/ 0815 TD/TT: 05/27/24 0837 Thread Marker: [facility] [address] [place] [address] Mammography Report Signed Patient: Lucrecia Johnson MR#: [id number] [birth year] : 1965 Acct:[id number] Age/Sex: 59 / F ADM Date: 05/27/24 Loc: HO.MAMMO Attending Dr: Giuseppe Kumar MD Ordering Physician: Giuseppe Kumar MD Results: 1Negativ e Date of Service: 05/27/24 Follow Up: 1 Year From Orig ina Mammogram Procedure(s): MM tomosynthesis screening BI Accession Number(s): [id number] cc: Giuseppe Kumar MD EXAMINATION: MM SCREENING DIGITAL BREAST TOMOSYNTHESIS, BILATERAL CLINICAL INFORMATION: Screening. Asymptomatic. COMPARISON: Mammography: Comparison is made with available priors TECHNIQUE: Digital breast mammography with tomosynthesis is performed in both the craniocaudal and mediolateral oblique views along with computer-aided detection (CAD). FINDINGS: There are scattered areas of fibroglandular density (ACR BI-RADS breast composition Category b). There are no significant masses, abnormal calcifications, or other abnormalities. MM/MM tomosynthesis screening BI IMPRESSION: No mammographic evidence of malignancy. ASSESSMENT: BI-RADS BI-RADS 1 - Negative RECOMMENDATION: Routine annual mammography screening. 1 year F/U This examination should not preclude the clinical evaluation of a suspicious palpable abnormality. This patient's information was entered into a reminder system with a target due date for their next mammogram. Electronically libertad d by: Xin Denton DO 06/08/2024 12:43 PM EST RP Dictated By: Xin Denton DO Signed By: <Electronically signed by Xin Denton DO in OV> 06/08/24 1243 DD/ 0815 TD/TT: 05/27/24 0837 Thread Marker: MAMMOGRAM DIGITAL BILATERAL SCREEN Reviewed date:07/13/2024 02:07:29 PM Interpretation:undefined Performing Lab: Notes/Report: undefined Complete Blood Count Auto Di ff Reviewed date:11/08/2024 08:18:13 PM Interpretation: Performing Lab:[facility], [address] [place] [phone] Notes/Report: White Blood Count 5.5 4.8-10.8 X10*3/uL Red Blood Count 4.77 4.20-5.50 X10*6/uL Hemoglobin 14.0 12.0-16.0 g/dl Hematocrit 42.4 37.0-47.0 % Mean Corpuscular Volume 88.9 80.0-98.0 fL Mean Corpuscular Hemoglobin 29.4 27.0-33.0 pg Mean Corpuscular HGB Conc 33.0 31.0-35.0 g/dl Red Cell Distribution Width 13.1 11.0-16.0 % Platelet Count 264 160-400 X10*3/uL Mean Platelet Volume 10.1 9.4-12.3 fL Neutrophils Percent Auto 48.9 45-73 % Imm Gran Pct Auto 0.2 0.0-0.4 % Lymphocytes Percent Auto 41.0 20-40 % Monocytes Percent Auto 7.3 2-11 % Eosinophils Percent Auto 1.1 0-4 % Basophils Percent Auto 1.5 0-2 % NRBC Pct Auto 0.0 0.0-0.2 /100WBC Neutrophils Absolute Auto 2.7 2.0-8.3 x10*3/u L Imm Gran Abs Auto 0.01 0.00-0.03 X10*3/uL Lymphocytes Absolute Auto 2.3 1.2-4.9 X10*3/u L Monocytes Absolute Auto 0.4 0.1-1.2 X10*3/uL Eosinophils Absolute Auto 0.1 0.0-0.4 X10*3/u L Basophils Absolute Auto 0.1 0.0-0.2 X10*3/uL NRBC Abs Auto 0.000 0.0-0.012 X10*3/uL Comprehensive [place]. Panel Fa Reviewed date:11/08/2024 08:18:13 PM Interpretation: Performing Lab:[facility], [address] [place] [phone] Notes/Report: Sodium 141 135-145 mmol/L Potassium 4.4 3.3-5.1 mmol/L Chloride 106 96-108 mmol/L Carbon Dioxide 28 22-29 mmol/L Anion Gap 11 12-20 Blood Urea Nitrogen 14 9-16 mg/dL Creatinine 0.59 0.5-1.4 mg/dL Estimated Glomerular Filt Rate > 60 Chronic Kidney Disease: Estimated GFR < 60 mL/min/1.73m2 Severe Kidney Disease: Estimated GFR < 15 mL/min/1.73m2 Glucose Fasting 108 60-99 mg/dL A fasting glucose from 100-125 mg/dl is considered impaired (pre-diabetes). Calcium 9.5 8.4-10.2 mg/dL Bilirubin Total 0.6 0.0-1.0 mg/dL Aspartate Amino Transferase 23 5-31 U/L Alanine Aminotransferase 39 0-31 U/L Total Protein 7.9 6.5-8.0 g/dL Albumin Level 4.1 3.5-5.0 g/dL Alkaline Phosphatase 70 39-117 U/L Diabetic Eye Exam Reviewed date:08/25/2024 10:23:11 AM Interpretation:undefined Performing Lab: Notes/Report: undefined Complete Blood Count Auto Di ff Reviewed date:12/05/2024 02:14:09 PM Interpretation: Performing Lab:[facility], [address] [place] [phone] Notes/Report: White Blood Count 5.1 4.8-10.8 X10*3/uL Red Blood Count 4.84 4.20-5.50 X10*6/uL Hemoglobin 13.8 12.0-16.0 g/dl Hematocrit 42.6 37.0-47.0 % Mean Corpuscular Volume 88.0 80.0-98.0 fL Mean Corpuscular Hemoglobin 28.5 27.0-33.0 pg Mean Corpuscular HGB Conc 32.4 31.0-35.0 g/dl Red Cell Distribution Width 13.2 11.0-16.0 % Platelet Count 266 160-400 X10*3/uL Mean Platelet Volume 10.0 9.4-12.3 fL Neutrophils Percent Auto 48.9 45-73 % Imm Gran Pct Auto 0.6 0.0-0.4 % Lymphocytes Percent Auto 40.0 20-40 % Monocytes Percent Auto 7.5 2-11 % Eosinophils Percent Auto 1.6 0-4 % Basophils Percent Auto 1.4 0-2 % NRBC Pct Auto 0.0 0.0-0.2 /100WBC Neutrophils Absolute Auto 2.5 2.0-8.3 x10*3/u L Imm Gran Abs Auto 0.03 0.00-0.03 X10*3/uL Lymphocytes Absolute Auto 2.0 1.2-4.9 X10*3/u L Monocytes Absolute Auto 0.4 0.1-1.2 X10*3/uL Eosinophils Absolute Auto 0.1 0.0-0.4 X10*3/u L Basophils Absolute Auto 0.1 0.0-0.2 X10*3/uL NRBC Abs Auto 0.000 0.0-0.012 X10*3/uL Comprehensive [place]. Panel Fa st Reviewed date:12/05/2024 02:14:09 PM Interpretation: Performing Lab:[facility], [address] [place] [phone] Notes/Report: Sodium 139 135-145 mmol/L Potassium 4.6 3.3-5.1 mmol/L Chloride 106 96-108 mmol/L Carbon Dioxide 27 22-29 mmol/L Anion Gap 11 12-20 Blood Urea Nitrogen 14 9-16 mg/dL Creatinine 0.64 0.5-1.4 mg/dL Estimated Glomerular Filt Rate > 60 Chronic Kidney Disease: Estimated GFR < 60 mL/min/1.73m2 Severe Kidney Disease: Estimated GFR < 15 mL/min/1.73m2 Glucose Fasting 105 60-99 mg/dL A fasting glucose from 100-125 mg/dl is considered impaired (pre-diabetes). Calcium 9.1 8.4-10.2 mg/dL Bilirubin Total 0.5 0.0-1.0 mg/dL Aspartate Amino Transferase 20 5-31 U/L Alanine Aminotransferase 39 0-31 U/L Total Protein 7.2 6.5-8.0 g/dL Albumin Level 4.1 3.5-5.0 g/dL Alkaline Phosphatase 73 39-117 U/L Lipid Panel Reviewed date:12/05/2024 02:14:09 PM Interpretation: Performing Lab:[facility], [address] [place] [phone] Notes/Report: Triglycerides 132 <150 mg/dL Desirable Triglyceride: less than 150 mg/dL Borderline High Triglyceride 150-199 mg/dL High Triglyceride: 200-499 mg/dL Very High Triglyceride: greater than or equal to 5OO mg/dL Cholesterol 194 <200 mg/dL Desirable Cholesterol: less than 200 mg/dL Borderline High Cholesterol: 200-239 mg/dL High Cholesterol: greater than 239 mg/dL LDL Cholesterol Calculated 123 <100 mg/dL Desirable LDL: less than 100 mg/dL Near Optimal/Above Optimal LDL: 110-129 mg/dL Borderline High LDL: 130-159 mg/dL High LDL: 160-189 mg/dL Very High LDL: greater than or equal to 190 mg/dL HDL Cholesterol 45 >40 mg/dL Desirable HDL: greater than 40 mg/dL Note: This HDL assay may give artificially low results in patients with liver disease. Hemoglobin A1c Reviewed date:12/05/2024 02:14:09 PM Interpretation: Performing Lab:[facility], [address] [place] [phone] Notes/Report: Hemoglobin A1c % 6.0 <6.0 % [...] average glucose, using the formula of the S6X-Vjrxhhm Average Glucose study (ADAG), Diabetes Care, Vol.31,#8, 2007 SCREENING COLONOSCOPY Reviewed date:01/04/2025 09:18:00 AM Interpretation:undefined Performing Lab: Notes/Report: undefined Reason For Referral Reason over due for her col onoscopy Has been seen in the past Diagnosis 1 Encounter for screen ing for malignant neoplasm of colon (Z12.11) Referral Organization Giuseppe Kumar III, MD Referring Provider First Name Giuseppe Referring Provider Last Name Kumar Referring Provider Speciality Internal M edicine Referred Provider [facility], Gastroenterology Referred Provider Specialty Gastroentero logy General Notes Harmony Bucio CARLOS 08/03 04:50:11 PM > ref/demo/progress note faxed to [facility] gastro, Harmony Bucio CARLOS 08/18/2024 03:10:59 PM >Called [facility] gastro they have referral and will be calling patient within the next few weeks to set up colonscopy, Harmony Bucio CARLOS 08/27/2024 02:09:02 PM >Called [facility] they have not called patient as of yet for appt they will put in a note to have the french edge operator to call her with appt, Harmony Bucio CARLOS 10/05/2024 02:45:51 PM > [facility] they stated they have not called pt as of yet will send another message to french edge operator to set pt up for appt, Ramona [...] at 8am with Dr De Jesus in [place] . Referral Priority Routine Referral Appointment Date 08/24/2024 Medications Medication SIG (Take, Route, Fr equency, Duration) Notes Start Date End Date Status Gralise 600 MG 2 tablet Orally Once a day Active Apple Cider Vinegar - as directed Orally Active Trospium Chloride 20 MG 1 tablet at bedt celina on an empty stomach Orally twice a day Active metFORMIN HCl 500 MG TAKE 1 TABLET BY [facility] EVERY DAY WITH A MEAL Active Immunizations Vaccine Route Administration Date Status Comme nts Influenza no Preserv 3 and > Unknown 03/14/2019 Adminis tered Influenza no Preserv 3 and > Unknown 01/19/2020 Adminis tered Influenza, quad Unknown 05/07/2022 Administered COVID Moderna Bivalent Unknown 06/16/2022 Administered Influenza, quad Unknown 03/27/2023 Administered COVID 19 Moderna Unknown 07/22/2020 Administered COVID 19 Moderna Unknown 06/22/2020 Administered SHINGRIX Unknown 04/08/2020 Administered COVID 19 Moderna Unknown 04/14/2021 Administered Comirnaty Pfizer COVID-19 12+ Unknown 07/21/2024 Admini stered Flu-IIv4pf Unknown 03/14/2019 Administered Flu-IIv3 Unknown 07/21/2024 Administered COVID-19 Moderna SPIKEVAX Unknown 03/02/2025 Administer ed Social History Tobacco Use: Social History Observation [...] ast year? No Points 0 Interpretation Negative Problems Problem Type SNOMED Code ICD Code Onset Dates Problem Status W/U Status Risk Notes Problem 1355535 Former smoker (Z87.891) Active confirmed She has a plan to prevent relapse in times of stress or illness. Problem 27101344 Hyperlipidemia (E78.5) Active confirmed Her total cholesterol is within the target range at this time. I have discussed her weight reduction cholesterol low diet with her at length today. We formulated a weight loss strategy. Problem Obesity (673922117) Obesity (E66.9) Active confirmed Made a p pavan to lose weight at a rate of 1 pound per week. We discussed diet and nutrition at length. Problem 21398374 Depression (F32.9) Active confirmed Her depression is stable and no change in her regimen was made. Problem 03184282 Irritable bowel syndrome (K58.9) Active confirmed Her abdominal symptoms have been very mild lately Problem 1365824575 Acute pain of left knee (M25.562) Active confirmed Problem Cataract (633740459) Cataract (H26.9) Active confirmed She paola l need cataract surgery in the near future. She will be given medical clearance without difficulty. She was instructed on how to arrange this. Problem 853755267 Panic attacks (F41.0) Active confirmed She is taking 20 mg of fluoxetine daily doing well. She feels much better and is functioning normally. Problem 409852625 Lumbar radiculopathy, acute (M54.16) Active confirmed Low back pain is mild but present. She is avoiding heavy lifting. Problem 84482208 Type 2 diabetes mellitus without complication, without long-term current use of insulin (E11.9) Active confirmed Her hemoglobin A1c was 7.5 in February 2021. With the metformin has normalized and she has done well. Problem 864771738 Acute left-sided low back pain without sciatica (M54.50) Active confirmed Her pain has become milder and she is able to conduct all of the activities of daily life. Problem [id number] Localized osteoarthritis of left knee (M17.12) Active confirmed Her left knee has healed well after surgery and is much less painful. He remains under the care of orthopedics. Vital Signs Heart Rate 85 /min 01/25/2025 Temperature 98.8 degrees Fahrenheit 01/25/2025 Blood pressure diastolic 82 mm Hg 01/25/2025 Height 62 in 01/25/2025 Blood pressure systolic 136 mm Hg 01/25/2025 Weight 211 lbs 01/25/2025 BMI 38.59 kg/m2 01/25/2025 Encounters Encounter Location Date Provider Diagnosis Giuseppe Kumar III, MD [address] [place] [address] [place] [phone] 04/23/2024 Giuseppe Kumar Localized osteoarthr itis of left knee M17.12 ; Type 2 diabetes mellitus without complication, without long-term current use of insulin E11.9 ; Hyperlipidemia E78.5 ; Obesity E66.9 ; Lumbar radiculopathy, acute M54.16 ; Depression F32.9 ; Former smoker Z87.891 and Acute viral syndrome B34.9 Giuseppe Kumar III, MD [address] [place] [address] [place] [address] 07/30/2024 Giuseppe Kumar Localized osteoarthr itis of left knee M17.12 ; Lumbar radiculopathy, acute M54.16 ; Panic attacks F41.0 ; Hyperlipidemia E78.5 ; Depression F32.9 ; Type 2 diabetes mellitus without complication, without long-term current use of insulin E11.9 ; Obesity E66.9 and Acute left-sided low back pain without sciatica M54.50 Giuseppe Kumar III, MD [address] [place] [address] [place] [address] 12/16/2024 Giuseppe Kumar Obesity E66.9 ; Lumb ar radiculopathy, acute M54.16 ; Localized osteoarthritis of left knee M17.12 ; Hyperlipidemia E78.5 ; Irritable bowel syndrome K58.9 ; Depression F32.9 and Type 2 diabetes mellitus without complication, without long-term current use of insulin E11.9 Giuseppe Kumar III, MD [address] [place] [address] [place] [address] 01/25/2025 Giuseppe Kumar Localized osteoarthr itis of left knee M17.12 ; Lumbar radiculopathy, acute M54.16 ; Obesity E66.9 ; Depression F32.9 ; Irritable bowel syndrome K58.9 ; Hyperlipidemia E78.5 and Type 2 diabetes mellitus without complication, without long-term current use of insulin E11.9 Giuseppe Kumar III, MD [address] [place] [address] [place] [address] 04/23/2024 Giuseppe Kumar III, MD [address] [place] [address] [place] [address] 04/23/2024 Giuseppe Kumar III, MD [address] [place] [address] [place] [address] 04/27/2024 Giuseppe Kumar Assessments Encounter Date Diagnosis (ICD Code) Assessment Notes Treat ment Notes Treatment Clinical Notes 04/23/2024 Type 2 diabetes mellitus without complication, without long-term current use of insulin (ICD-10 - E11.9) 04/23/2024 Localized osteoarthritis of left knee (ICD-10 - M17.12) Her left knee has healed well after surgery and is much less painful. He remains under the care of orthopedics. 07/30/2024 Lumbar radiculopathy , acute (ICD-10 - M54.16) Low back pain is mild but present. She is avoiding heavy lifting. 07/30/2024 Localized osteoarthritis of left knee (ICD-10 - M17.12) Her left knee has healed well after surgery and is much less painful. He remains under the care of orthopedics. 12/16/2024 Obesity (ICD-10 - E66.9) Made a plan to lose weight at a rate of 1 pound per week. We discussed diet and nutrition at length. 12/16/2024 Lumbar radiculopathy , acute (ICD-10 - M54.16) Low back pain is mild but present. She is avoiding heavy lifting. 01/25/2025 Lumbar radiculopathy , acute (ICD-10 - M54.16) Low back pain is mild but present. She is avoiding heavy lifting. 01/25/2025 Localized osteoarthritis of left knee (ICD-10 - M17.12) Her left knee has healed well after surgery and is much less painful. He remains under the care of orthopedics. 04/23/2024 Hyperlipidemia (ICD-10 - E78.5) The current fasting lipid profile shows good control of her lipids and no change in her medications was necessary. 07/30/2024 Panic attacks (ICD-1 0 - F41.0) She is taking 20 mg of fluoxetine daily doing well. She feels much better and is functioning normally. 12/16/2024 Localized osteoarthritis of left knee (ICD-10 - M17.12) Her left knee has healed well after surgery and is much less painful. He remains under the care of orthopedics. 01/25/2025 Obesity (ICD-10 - E66.9) Made a plan to lose weight at a rate of 1 pound per week. We discussed diet and nutrition at length. 04/23/2024 Obesity (ICD-10 - E66.9) Her body mass index is 39. We discussed her diabetes and weight at length. We made a plan to lose weight at a rate of one half of a pound per week through diet restricted in fat calories and sodium. She will be seen after blood work in the near future. 07/30/2024 Hyperlipidemia (ICD-10 - E78.5) The current fasting lipid profile shows good control of her lipids and no change in her medications was necessary. 12/16/2024 Hyperlipidemia (ICD-10 - E78.5) Her total cholesterol is within the target range at this time. I have discussed her weight reduction cholesterol low diet with her at length today. We formulated a weight loss strategy. 01/25/2025 Depression (ICD-10 - F32.9) Her depression is stable and no change in her regimen was made. 04/23/2024 Lumbar radiculopathy , acute (ICD-10 - M54.16) Low back pain is mild but present. She is avoiding heavy lifting. 07/30/2024 Depression (ICD-10 - F32.9) Her depression is stable and no change in her regimen was made. 12/16/2024 Irritable bowel syndrome (ICD-10 - K58.9) Her abdominal symptoms have been very mild lately 01/25/2025 Irritable bowel syndrome (ICD-10 - K58.9) Her abdominal symptoms have been very mild lately 04/23/2024 Depression (ICD-10 - F32.9) Her depression is stable and no change in her regimen was made. 07/30/2024 Type 2 diabetes mellitus without complication, without long-term current use of insulin (ICD-10 - E11.9) Her hemoglobin A1c is 6.0. Her regimen was continued without change. We reviewed the necessity for weight loss. 12/16/2024 Depression (ICD-10 - F32.9) Her depression is stable and no change in her regimen was made. 01/25/2025 Hyperlipidemia (ICD-10 - E78.5) Her total cholesterol is within the target range at this time. I have discussed her weight reduction cholesterol low diet with her at length today. We formulated a weight loss strategy. 04/23/2024 Former smoker (ICD-1 0 - Z87.891) She has a plan to prevent relapse in times of stress or illness. 07/30/2024 Obesity (ICD-10 - E66.9) Her body mass index is 39. We discussed her diabetes and weight at length. We made a plan to lose weight at a rate of one half of a pound per week through diet restricted in fat calories and sodium. She will be seen after blood work in the near future. 12/16/2024 Type 2 diabetes mellitus without complication, without long-term current use of insulin (ICD-10 - E11.9) Her hemoglobin A1c was 7.5 in February 2021. With the metformin has normalized and she has done well. 01/25/2025 Type 2 diabetes mellitus without complication, without long-term current use of insulin (ICD-10 - E11.9) 04/23/2024 Acute viral syndrome (ICD-10 - B34.9) He did not come to the office today because of an acute viral syndrome. Her temperature has reached 99 and she has a sore throat. He has a dry cough and muscle aches. Her son is recovering from a very similar syndrome. She will use avsm-bhk-thtutru medications and acetaminophen. She will report by telephone every other day as to her recovery. 07/30/2024 Acute left-sided low back pain without sciatica (ICD-10 - M54.50) Her pain has become milder and she is able to conduct all of the activities of daily life. Plan Of Treatment Pending Test Test Name Order Date PROFILE, FASTING (COMPREHENSIVE METABOLI C) 02/23/2020 PROFILE, FASTING (COMPREHENSIVE METABOLI C) 03/11/2023 PROFILE, FASTING (COMPREHENSIVE METABOLI C) 10/24/2022 PROFILE, FASTING (COMPREHENSIVE METABOLI C) 01/01/2018 PROFILE, FASTING (COMPREHENSIVE METABOLI C) 06/07/2023 PROFILE, FASTING (COMPREHENSIVE METABOLI C) 03/08/2021 PROFILE, FASTING (COMPREHENSIVE METABOLI C) 07/30/2024 PROFILE, FASTING (COMPREHENSIVE METABOLI C) 06/26/2022 PROFILE, FASTING (COMPREHENSIVE METABOLI C) 04/23/2024 PROFILE, FASTING (COMPREHENSIVE METABOLI C) 11/23/2019 PROFILE, FASTING (COMPREHENSIVE METABOLI C) 12/20/2023 PROFILE, FASTING (COMPREHENSIVE METABOLI C) 01/25/2025 PROFILE, FASTING (COMPREHENSIVE METABOLI C) 07/19/2023 PROFILE, FASTING (COMPREHENSIVE METABOLI C) 06/24/2020 PROFILE, FASTING (COMPREHENSIVE METABOLI C) 01/12/2019 PROFILE, FASTING (COMPREHENSIVE METABOLI C) 12/01/2020 PROFILE, FASTING (COMPREHENSIVE METABOLI C) 12/16/2024 PROFILE, RANDOM (COMPREHENSIVE METABOLIC ) 10/11/2020 FASTING BLOOD SUGAR (FBS, GLUCOSE) 12/01 HEMOGLOBIN A1C (GLYCOHEMOGLOBIN) 023 HEMOGLOBIN A1C (GLYCOHEMOGLOBIN) 023 HEMOGLOBIN A1C (GLYCOHEMOGLOBIN) 021 HEMOGLOBIN A1C (GLYCOHEMOGLOBIN) 023 LIPID PANEL 02/23/2020 LIPID PANEL 01/01/2018 LIPID PANEL 03/11/2023 LIPID PANEL 10/24/2022 LIPID PANEL 11/23/2019 LIPID PANEL 03/08/2021 LIPID PANEL 01/25/2025 LIPID PANEL 06/24/2020 LIPID PANEL 06/26/2022 LIPID PANEL 01/12/2019 RHEUMATOID FACTOR (RA, RF) 03/11/2023 MICROALBUMIN, RANDOM 10/24/2022 MICROALBUMIN, RANDOM 03/11/2023 MICROALBUMIN, RANDOM 03/08/2021 CBC w DIFF 06/26/2022 CBC w DIFF 12/16/2024 CBC w DIFF 06/24/2020 CBC w DIFF 03/11/2023 CBC w DIFF 03/08/2021 CBC w DIFF 01/12/2019 CBC w DIFF 10/11/2020 CBC w DIFF 02/23/2020 CBC w DIFF 01/01/2018 CBC w DIFF 07/30/2024 CBC w DIFF 11/23/2019 CBC w DIFF 10/24/2022 CBC w DIFF 01/25/2025 SED RATE (ESR) 10/11/2020 MRI LUMBAR SPINE NO CONTRAST 12/03/2016 MAMMOGRAM DIGITAL BILATERAL SCREEN 12/08 MAMMOGRAM DIGITAL BILATERAL SCREEN 01/12 CBC WITH AUTO DIFF 06/07/2023 CBC WITH AUTO DIFF 04/23/2024 CBC WITH AUTO DIFF 12/20/2023 CBC WITH AUTO DIFF 07/19/2023 Lipid Panel 07/19/2023 Lipid Panel 12/16/2024 Lipid Panel 04/23/2024 Lipid Panel 12/20/2023 Microalbumin, Random 04/23/2024 Microalbumin, Random 12/20/2023 Microalbumin, Random 07/19/2023 Hemoglobin A1c 01/25/2025 Hemoglobin A1c 12/01/2020 Hemoglobin A1c 04/23/2024 Hemoglobin A1c 12/20/2023 Hemoglobin A1c 07/19/2023 Hemoglobin A1c 12/16/2024 Next Appt Details Provider Name:Giuseppe Kumar , 03/19/2025 04:30:00 PM, [address] [place] [address] [address], [place], [address], Provider Name:Giuseppe Kumar , 08/03/2025 09:30:00 AM, [address] [place] [address] [address], [place], [address], Insurance Providers Payer Name Payer Address Payer Phone Subscriber Number Group Number Insured Name Patient Relationship to Insured Coverage Start Date Coverage End Date [facility] [address] [place], [place] [id number] Lin Johnson Self - patient is the insured Medical (General) History Medical History History ICD Code overweight diverticulitis bronchitis sciatica tenosynovitis ganglion cyst left ankle sprain last bilateral mammogram 02/24/2014 @ depression right knee pain 2015 2020 diabetes mellitus type 2 Surgical History Surgery Date(Month/Year) No history Left knee surgery 07/05/2023 Back Surgery 2016 2011 breast surgery Hospitalization History Reason Date(Month/Year) No history Abdominal pain 06/2019
[2025-03-17 07:58] LABS: MANUAL DIFF FLAG NO
[2025-03-17 08:32] LABS: Hematocrit 42.9 % (37.0-47.0); Hemoglobin 13.8 g/dl (12.0-16.0); Imm Gran Abs Auto 0.01 X10*3/uL (0.00-0.03); Imm Gran Pct Auto 0.2 % (0.0-0.4); Lymphocytes Absolute Auto 2.7 X10*3/uL (1.2-4.9); Mean Corpuscular HGB Conc 32.2 g/dl (31.0-35.0); Mean Corpuscular Hemoglobin 28.6 pg (27.0-33.0); Mean Corpuscular Volume 89.0 fL (80.0-98.0); NRBC Abs Auto 0.000 X10*3/uL (0.0-0.012); NRBC Pct Auto 0.0 /100WBC (0.0-0.2); Platelet Count 236 X10*3/uL (160-400); Red Blood Count 4.82 X10*6/uL (4.20-5.50); White Blood Count 6.1 X10*3/uL (4.8-10.8)
[2025-03-17 09:08] LABS: Alanine Aminotransferase 31 U/L (0-31); Albumin Level 4.2 g/dL (3.5-5.0); Alkaline Phosphatase 65 U/L (39-117); Anion Gap 11 (12-20); Aspartate Amino Transferase 25 U/L (5-31); Blood Urea Nitrogen 14 mg/dL (9-16); Calcium 8.9 mg/dL (8.4-10.2); Carbon Dioxide 27 mmol/L (22-29); Chloride 107 mmol/L (96-108); Cholesterol 188 mg/dL (<200); Estimated Glomerular Filt Rate > 60; HDL Cholesterol 38 mg/dL (>40); Potassium 4.3 mmol/L (3.3-5.1); Sodium 141 mmol/L (135-145); Total Protein 7.2 g/dL (6.5-8.0); Triglycerides 115 mg/dL (<150)
[2025-03-17 09:58] LABS: Hemoglobin A1C 151.9139 umol/L
== END 2025-03-17 07:51 | disposition home or self-care (01) ==
LOC: HO.LAB 07:50
PROVIDERS: PCP Internal Medicine Medical Oncology; Visit Provider Internal Medicine Medical Oncology
DX: R73.09 Other abnormal glucose (principal); E78.5 Hyperlipidemia, unspecified; E66.9 Obesity, unspecified
CPT/HCPCS: 36415; 80053; 80061; 83036; 85025

== ENCOUNTER 2025-06-02 08:14 | Outpatient (REF) | payer BC, SELFPAY ==
--- OUTSIDE RECORDS SUMMARY | 2024-04-23 04:00 | XMS_ITS ---
Author Organization Giuseppe Kumar III, MD Address [address] [place] [address] [place] [address] Care Team Providers Care Take Out Waiter/Waitress Name Role Phone Dr. Giuseppe Kumar III Primary Care Provider Allergies Allergen (clinical drug ingredient) Drug/Non Drug Allergy documented on EMR Reaction Allergy Type Onset Date Status Seasonale Unknown Drug Allergy Active Banana Concentrate Unknown Drug Allergy Active REASON FOR VISIT Obesity, Diabetes, Viral syndrome, Lumbar radiculopathy, Hyperlipidemia, Depression Medications Medication SIG (Take, Route, Fr equency, Duration) Notes Start Date End Date Status Gralise 600 MG 2 tablet Orally Once a day Active metFORMIN HCl 500 MG TAKE 1 TABLET BY [facility] EVERY DAY WITH A MEAL Active Trospium Chloride 20 MG 1 tablet at bedt celina on an empty stomach Orally twice a day Active Apple Cider Vinegar - as directed Orally Active Social History Tobacco Use: Social History Observation Description Date Details (start date - stop date) Never Smoker NA - NA Sex Assigned At : Social History Observation Description Sex Assigned At Female Tobacco Control (Standard) Question Answer Notes Tobacco use: Nonsmoker Vital Signs Temperature 99.7 degrees Fahrenheit 11/14/20 24 Height 62 in 04/23/2024 Weight 216.0 lbs 04/23/2024 Encounters Encounter Location Date Provider Diagnosis Giuseppe Kumar III, MD [address] [place] [address] [place] [address] 04/23/2024 Giuseppe Kumar Localized osteoarthr itis of left knee M17.12 ; Type 2 diabetes mellitus without complication, without long-term current use of insulin E11.9 ; Hyperlipidemia E78.5 ; Obesity E66.9 ; Lumbar radiculopathy, acute M54.16 ; Depression F32.9 ; Former smoker Z87.891 and Acute viral syndrome B34.9 Assessments Encounter Date Diagnosis (ICD Code) Assessment Notes Treat ment Notes Treatment Clinical Notes 04/23/2024 Localized osteoarthritis of left knee (ICD-10 - M17.12) Her left knee has healed well after surgery and is much less painful. He remains under the care of orthopedics. 04/23/2024 Type 2 diabetes mellitus without complication, without long-term current use of insulin (ICD-10 - E11.9) 04/23/2024 Hyperlipidemia (ICD-10 - E78.5) The current fasting lipid profile shows good control of her lipids and no change in her medications was necessary. 04/23/2024 Obesity (ICD-10 - E66.9) Her body mass index is 39. We discussed her diabetes and weight at length. We made a plan to lose weight at a rate of one half of a pound per week through diet restricted in fat calories and sodium. She will be seen after blood work in the near future. 04/23/2024 Lumbar radiculopathy , acute (ICD-10 - M54.16) Low back pain is mild but present. She is avoiding heavy lifting. 04/23/2024 Depression (ICD-10 - F32.9) Her depression is stable and no change in her regimen was made. 04/23/2024 Former smoker (ICD-1 0 - Z87.891) She has a plan to prevent relapse in times of stress or illness. 04/23/2024 Acute viral syndrome (ICD-10 - B34.9) He did not come to the office today because of an acute viral syndrome. Her temperature has reached 99 and she has a sore throat. He has a dry cough and muscle aches. Her son is recovering from a very similar syndrome. She will use ndfy-nwv-zmfymdj medications and acetaminophen. She will report by telephone every other day as to her recovery. Plan Of Treatment Medication Medication Name Sig Start Date Stop Date Notes Gralise 600 MG 2 tablet Orally Once a day metFORMIN HCl 500 MG TAKE 1 TABLET BY MO [facility] EVERY DAY WITH A MEAL Trospium Chloride 20 MG 1 tablet at bedt celina on an empty stomach Orally twice a day Apple Cider Vinegar - as directed Orally Pending Test Test Name Order Date PROFILE, FASTING (COMPREHENSIVE METABOLI C) 04/23/2024 CBC WITH AUTO DIFF 04/23/2024 Lipid Panel 04/23/2024 Microalbumin, Random 04/23/2024 Hemoglobin A1c 04/23/2024 Next Appt Details Follow Up: July, Reason: Regular Checkup Provider Name:Giuseppe Kumar , 08/03/2025 09:30:00 AM, [address] [place] [address], [address], [place], [address], Progress Notes * Lin JOHNSON LDOB: 5 (59 yo F)Acc No.[id number]:04/23/2024 Patient: Lin KRAFT L Provider: Gi Kumar MD :1965 A ge:59 Y S ex:Female Date:04/23/2024 Address:[address] [place], [place] [phone] Subjective: * Chief Complaints: * O besityDiabetesViral syndromeLumbar radiculopathyHyperlipidemiaDepression * HPI: * : Telehealth L ocation of provider rendering services: { ...} [address] [place] [address] [address] [facility] [address] L ocation of patient: raul ddress listed in demographics for today's visit P atient identification confirmed using: BELLA Ibarra ame T elehealth method: T elephone only. Patient not visible to care provider. C onsent: P atient verbally consented to treatment, Patient verbally consented to billing insurance company, Patient informed of any privacy concerns related to method of visit T otal time spent with patient (mins) 1 5 The patient, a 59-year-old female, reported feeling sick since the previous day. She experienced symptoms such as fever, chills, and a severe headache. She also mentioned having a dry cough, which started with a tickle in her throat. The patient's son had recently been ill with similar symptoms, suggesting a viral infection. The patient's symptoms appear to be constant and severe, affecting her overall well-being. The patient did not report any nausea, vomiting, or diarrhea. She did not bring up any phlegm when she coughed, indicating a dry cough. The patient's symptoms seem to have been triggered by her son's recent illness. Blood Sugar Level is 105. * ROS: G eneral/Constitutional: pain o nly normal aches and pains. C hills d enies.?Fatigue a dmits. F ever u p to 99 degrees. E NT: Decreased hearing d enies. R espiratory: Cough n on-productive. C ardiovascular: Chest pain with exertion d enies. D yspnea on exertion?denies. S hortness of breath d enies. G astrointestinal: Constipation o ccasional. D ecreased appetite d enies. D iarrhea d enies. H eartburn d enies. N ausea d enies. R ectal bleeding d enies. V omiting d enies. H ematology: bruising d enies. p etechiae d enies. S wollen glands n one have been noted. G enitourinary: Frequent urination a t night. M usculoskeletal: Muscle aches D iffuse. P ainful joints d enies.?Sciatica d enies. W eakness d enies. S kin: Itching d enies. R dwight d enies. S kin lesion(s)?denies. N eurologic: Difficulty speaking d enies. D izziness d enies.?Headache d enies. L ow back pain d enies. P sychiatric: Depressed mood d enies. * Medical History: * Surgical History: 2 012 breast surgery Back Surgery 2017Left knee surgery 07/05/2023No history * Hospitalization/Major Diagno stic Procedure: A bdominal pain 06/2019No history * Family History: F ather: 69 yrs, colon cancer, adult onset diabetes mellitus, anemia, diagnosed with DM, Cancer. M other: alive 75 yrs, diverticulosis, osteoarthritis, acid reflex, artial fibrillation, dementia, stroke. P aternal Grand Father: , pancreatic cancer, diagnosed with Cancer. M aternal Grand Mother: , adult onset diabetes mellitus, arthritis, diagnosed with DM. P aternal uncle: , lymphoma. M aternal aunt: , lung cancer, diagnosed with Cancer. 2 sister(s) - healthy. 1 son(s) , 1 daughter(s) - healthy. . Her oldest sister had a pacer in march 26, 2017. * Social History: T obacco Use: T obacco Control (Standard) T obacco use: N onsmoker S he has been for many years. She is now retired. * Medications: T akingTrospium Chloride 20 MG Tablet 1 tablet at bedtime on an empty stomach Orally twice a day Apple Cider Vinegar - Tablet as directed Orally Gralise 600 MG Tablet 2 tablet Orally Once a day metFORMIN HCl 500 MG Tablet TAKE 1 TABLET BY MOUTH EVERY DAY WITH A MEAL Taking Trospium Chloride 20 MG Tablet 1 tablet at bedtime on an empty stomach Orally twice a day Taking Apple Cider Vinegar - Tablet as directed Orally Taking Gralise 600 MG Tablet 2 tablet Orally Once a day Taking metFORMIN HCl 500 MG Tablet TAKE 1 TABLET BY MOUTH EVERY DAY WITH A MEAL * Allergies: B anana ConcentrateSeasonaleno[Allergies Verified] Objective: * Vitals: H t: 62, Wt:216.0, Temp:99.7. * P ast Orders: Lab:Hemoglobin A1c * Collection Date 04/18/2024 12/14/2023 06/08/2023 Collection Time 08:55 AM 09:08 AM 09:54 AM Order Date 04/18/2024 12/14/2023 06/07/2023 Hemoglobin A1c % 6.1 H (Ref Range: <6.0 %) 6.0 (Ref Range: <6.0 %) 5.6 (Ref Range: <6.0 %) Estimated Average Glucose 128 (Ref Range: mg/dL) 126 (Ref Range: mg/dL) 114 (Ref Range: mg/dL) * Lab:Microalbumin, Random * Collection Date 04/18/2024 12/14/2023 06/08/2023 Collection Time 08:51 AM 09:11 AM 09:55 AM Order Date 04/18/2024 12/14/2023 06/07/2023 Creatinine Urine 43.59 (Ref Range: mg/dL) 152.88 (Ref Range: mg/dL) 66.04 (Ref Range: mg/dL) Microalbumin Urine < 5.0 (Ref Range: mg/L) 10.0 (Ref Range: mg/L) < 5.0 (Ref Range: mg/L) Microalbum Creatinine Ratio Ur TNP (Ref Range: <30 ug/mg cr) 6.5 (Ref Range: <30 ug/mg cr) TNP (Ref Range: <30 ug/mg cr) * Lab:Lipid Panel * Collection Date 04/18/2024 12/14/2023 06/08/2023 Collection Time 08:55 AM 09:08 AM 09:54 AM Order Date 04/18/2024 12/14/2023 06/07/2023 Triglycerides 117 (Ref Range: <150 mg/dL) 151 H (Ref Range: <150 mg/dL) 139 (Ref Range: <150 mg/dL) Cholesterol 178 (Ref Range: <200 mg/dL) 193 (Ref Range: <200 mg/dL) 204 H (Ref Range: <200 mg/dL) LDL Cholesterol Calculated 109 H (Ref Range: <100 mg/dL) 116 H (Ref Range: <100 mg/dL) 128 H (Ref Range: <100 mg/dL) HDL Cholesterol 46 (Ref Range: >40 mg/dL) 47 (Ref Range: >40 mg/dL) 49 (Ref Range: >40 mg/dL) * Lab:Comprehensive [place]. Pane l Fast * Collection Date 04/18/2024 12/14/2023 06/08/2023 Collection Time 08:55 AM 09:08 AM 09:54 AM Order Date 04/18/2024 12/14/2023 06/08/2023 Sodium 145 (Ref Range: 135-145 mmol/L) 141 (Ref Range: 135-145 mmol/L) 140 (Ref Range: 135-145 mmol/L) Bilirubin Total 0.4 (Ref Range: 0.0-1.0 mg/dL) 0.5 (Ref Range: 0.0-1.0 mg/dL) 0.5 (Ref Range: 0.0-1.0 mg/dL) Aspartate Amino Transferase 32 H (Ref Range: 5-31 U/L) 19 (Ref Range: 5-31 U/L) 20 (Ref Range: 5-31 U/L) Alanine Aminotransferase 41 H (Ref Range: 0-31 U/L) 32 H (Ref Range: 0-31 U/L) 28 (Ref Range: 0-31 U/L) Total Protein 7.4 (Ref Range: 6.5-8.0 g/dL) 7.7 (Ref Range: 6.5-8.0 g/dL) 7.6 (Ref Range: 6.5-8.0 g/dL) Albumin Level 4.1 (Ref Range: 3.5-5.0 g/dL) 4.3 (Ref Range: 3.5-5.0 g/dL) 4.1 (Ref Range: 3.5-5.0 g/dL) Alkaline Phosphatase 68 (Ref Range: 39-117 U/L) 61 (Ref Range: 39-117 U/L) 61 (Ref Range: 39-117 U/L) Potassium 4.3 (Ref Range: 3.3-5.1 mmol/L) 4.4 (Ref Range: 3.3-5.1 mmol/L) 4.3 (Ref Range: 3.3-5.1 mmol/L) Chloride 109 H (Ref Range: 96-108 mmol/L) 106 (Ref Range: 96-108 mmol/L) 105 (Ref Range: 96-108 mmol/L) Carbon Dioxide 27 (Ref Range: 22-29 mmol/L) 25 (Ref Range: 22-29 mmol/L) 26 (Ref Range: 22-29 mmol/L) Anion Gap 13 (Ref Range: 12-20) 14 (Ref Range: 12-20) 13 (Ref Range: 12-20) Blood Urea Nitrogen 9 (Ref Range: 9-16 mg/dL) 14 (Ref Range: 9-16 mg/dL) 15 (Ref Range: 9-16 mg/dL) Creatinine 0.70 (Ref Range: 0.5-1.4 mg/dL) 0.78 (Ref Range: 0.5-1.4 mg/dL) 0.69 (Ref Range: 0.5-1.4 mg/dL) Estimated Glomerular Filt Rate > 60 > 60 > 60 Glucose Fasting 105 H (Ref Range: 60-99 mg/dL) 112 H (Ref Range: 60-99 mg/dL) 107 H (Ref Range: 60-99 mg/dL) Calcium 9.5 (Ref Range: 8.4-10.2 mg/dL) 9.7 (Ref Range: 8.4-10.2 mg/dL) 9.3 (Ref Range: 8.4-10.2 mg/dL) * Lab:Complete Blood Count Aut o Diff * Collection Date 04/18/2024 12/14/2023 06/08/2023 Collection Time 08:55 AM 09:08 AM 09:54 AM Order Date 04/18/2024 12/14/2023 06/08/2023 White Blood Count 5.6 (Ref Range: 4.8-10.8 X10*3/uL) 5.8 (Ref Range: 4.8-10.8 X10*3/uL) 5.5 (Ref Range: 4.8-10.8 X10*3/uL) Red Blood Count 4.80 (Ref Range: 4.20-5.50 X10*6/uL) 5.02 (Ref Range: 4.20-5.50 X10*6/uL) 4.85 (Ref Range: 4.20-5.50 X10*6/uL) Hemoglobin 14.0 (Ref Range: 12.0-16.0 g/dl) 14.5 (Ref Range: 12.0-16.0 g/dl) 14.2 (Ref Range: 12.0-16.0 g/dl) Hematocrit 42.4 (Ref Range: 37.0-47.0 %) 43.8 (Ref Range: 37.0-47.0 %) 42.8 (Ref Range: 37.0-47.0 %) Mean Corpuscular Volume 88.3 (Ref Range: 80.0-98.0 fL) 87.3 (Ref Range: 80.0-98.0 fL) 88.2 (Ref Range: 80.0-98.0 fL) Mean Corpuscular Hemoglobin 29.2 (Ref Range: 27.0-33.0 pg) 28.9 (Ref Range: 27.0-33.0 pg) 29.3 (Ref Range: 27.0-33.0 pg) Mean Corpuscular HGB Conc 33.0 (Ref Range: 31.0-35.0 g/dl) 33.1 (Ref Range: 31.0-35.0 g/dl) 33.2 (Ref Range: 31.0-35.0 g/dl) Red Cell Distribution Width 13.3 (Ref Range: 11.0-16.0 %) 13.3 (Ref Range: 11.0-16.0 %) 13.2 (Ref Range: 11.0-16.0 %) Platelet Count 264 (Ref Range: 160-400 X10*3/uL) 262 (Ref Range: 160-400 X10*3/uL) 243 (Ref Range: 160-400 X10*3/uL) Mean Platelet Volume 9.9 (Ref Range: 9.4-12.3 fL) 10.0 (Ref Range: 9.4-12.3 fL) 9.8 (Ref Range: 9.4-12.3 fL) Neutrophils Percent Auto 45.0 (Ref Range: 45-73 %) 45.2 (Ref Range: 45-73 %) 47.8 (Ref Range: 45-73 %) Imm Gran Pct Auto 0.2 (Ref Range: 0.0-0.4 %) 0.2 (Ref Range: 0.0-0.4 %) 0.4 (Ref Range: 0.0-0.4 %) Lymphocytes Percent Auto 44.1 H (Ref Range: 20-40 %) 44.2 H (Ref Range: 20-40 %) 40.5 H (Ref Range: 20-40 %) Monocytes Percent Auto 7.1 (Ref Range: 2-11 %) 6.7 (Ref Range: 2-11 %) 8.0 (Ref Range: 2-11 %) Eosinophils Percent Auto 2.5 (Ref Range: 0-4 %) 2.8 (Ref Range: 0-4 %) 2.4 (Ref Range: 0-4 %) Basophils Percent Auto 1.1 (Ref Range: 0-2 %) 0.9 (Ref Range: 0-2 %) 0.9 (Ref Range: 0-2 %) NRBC Pct Auto 0.0 (Ref Range: 0.0-0.2 /100WBC) 0.0 (Ref Range: 0.0-0.2 /100WBC) 0.0 (Ref Range: 0.0-0.2 /100WBC) Neutrophils Absolute Auto 2.5 (Ref Range: 2.0-8.3 x10*3/uL) 2.6 (Ref Range: 2.0-8.3 x10*3/uL) 2.6 (Ref Range: 2.0-8.3 x10*3/uL) Imm Gran Abs Auto 0.01 (Ref Range: 0.00-0.03 X10*3/uL) 0.01 (Ref Range: 0.00-0.03 X10*3/uL) 0.02 (Ref Range: 0.00-0.03 X10*3/uL) Lymphocytes Absolute Auto 2.5 (Ref Range: 1.2-4.9 X10*3/uL) 2.6 (Ref Range: 1.2-4.9 X10*3/uL) 2.2 (Ref Range: 1.2-4.9 X10*3/uL) Monocytes Absolute Auto 0.4 (Ref Range: 0.1-1.2 X10*3/uL) 0.4 (Ref Range: 0.1-1.2 X10*3/uL) 0.4 (Ref Range: 0.1-1.2 X10*3/uL) Eosinophils Absolute Auto 0.1 (Ref Range: 0.0-0.4 X10*3/uL) 0.2 (Ref Range: 0.0-0.4 X10*3/uL) 0.1 (Ref Range: 0.0-0.4 X10*3/uL) Basophils Absolute Auto 0.1 (Ref Range: 0.0-0.2 X10*3/uL) 0.1 (Ref Range: 0.0-0.2 X10*3/uL) 0.1 (Ref Range: 0.0-0.2 X10*3/uL) NRBC Abs Auto 0.000 (Ref Range: 0.0-0.012 X10*3/uL) 0.000 (Ref Range: 0.0-0.012 X10*3/uL) 0.000 (Ref Range: 0.0-0.012 X10*3/uL) Assessment: * Assessment: 1. T ype 2 diabetes mellitus without complication, without long-term current use of insulin - E11.9 (Primary) 2 . L ocalized osteoarthritis of left knee - M17.12 ?Notes :Her left knee has healed well after surgery and is much less painful. He remains under the care of orthopedics. 3 . H yperlipidemia - E78.5 N otes :The current fasting lipid profile shows good control of her lipids and no change in her medications was necessary. 4 . O besity - E66.9 N otes :Her body mass index is 39. We discussed her diabetes and weight at length. We made a plan to lose weight at a rate of one half of a pound per week through diet restricted in fat calories and sodium. She will be seen after blood work in the near future. 5 . L umbar radiculopathy, acute - M54.16 N otes :Low back pain is mild but present. She is avoiding heavy lifting. 6 . D epression - F32.9 N otes :Her depression is stable and no change in her regimen was made. 7 . F ormer smoker - Z87.891 N otes :She has a plan to prevent relapse in times of stress or illness. 8 . A cute viral syndrome - B34.9 N otes :He did not come to the office today because of an acute viral syndrome. Her temperature has reached 99 and she has a sore throat. He has a dry cough and muscle aches. Her son is recovering from a very similar syndrome. She will use qthw-umi-wzxkxzk medications and acetaminophen. She will report by telephone every other day as to her recovery. Plan: * Treatment: 2. L ocalized osteoarthritis of left knee Continue Trospium Chloride Tablet, 20 MG, 1 tablet at bedtime on an empty stomach, Orally, twice a day; C ontinue Apple Cider Vinegar Tablet, -, as directed, Orally; C ontinue Gralise Tablet, 600 MG, 2 tablet, Orally, Once a day. 3. H yperlipidemia L AB: PROFILE, FASTING (COMPREHENSIVE METABOLIC) L AB: CBC WITH AUTO DIFF L AB: Lipid Panel L AB: Microalbumin, Random L AB: Hemoglobin A1c 4. O thers Continue metFORMIN HCl Tablet, 500 MG, TAKE 1 TABLET BY MOUTH EVERY DAY WITH A MEAL. * Procedure Codes: 9 [id number] PHONE E/M BY PHYS 11-20 MIN * Preventive Medicine: Counseling: C are goal follow-up plan: Counseling for abnormal BMI given Y es Above Normal BMI Follow-up D ietary management education, guidance, and counseling, Dietary needs education DM Care Plan: P atient Lifestyle Goals P atient wants to be able to manage diabetes without too much effort. T reatment Goals H bA1C < 7.0, Blood Sugars less than < 115. B arriers n o barriers. S elf-Managment Goals W ork on weight loss, with a goal of losing 1 lb per week. * Follow Up: F ebruary (Reason: Regular Checkup) * Images: * Sign off status: Completed true * Provider: Gi Kumar MD Date: 06/23/2023 Generated for Bert egan/Isaak/Xavieritting on: 08/03/2024 08:18 AM EST History and Physical Notes * HPI (History of Present Illness) Category Sub-Category Detail Notes Telehealth Location of [facility] rendering services:: {...} [address] [place] [address] [address] [place] [phone] Location of patient:: address listed in demographics for today's visit Patient identification confirmed using:: Name, Telehealth method:: Telephone only. Aurelia ent not visible to care provider. Consent:: Patient verbally c onsented to treatment, Patient verbally consented to billing insurance company, Patient informed of any privacy concerns related to method of visit Total time spent with patient (mins): 15
--- OUTSIDE RECORDS SUMMARY | 2024-04-23 08:04 | XMS_ITS ---
Author Organization Giuseppe Kumar III, MD Address [address] [place] [address] [place] [address] Care Team Providers Care Property And Equipment Clerk Name Role Phone Dr. Giuseppe Kumar III Primary Care Provider REASON FOR VISIT COVID Positive Social History Sex Assigned At : Social History Observation Description Sex Assigned At Female Encounters Encounter Location Date Provider Diagnosis Giuseppe Kuamr III, MD [address] [place] [address] [place] [address] 04/23/2024 Giuseppe Kumar Plan Of Treatment Next Appt Details Provider Name:Giuseppe Kumar , 08/03/2025 09:30:00 AM, [address] [place] [address] [place], [address], Progress Notes * Lin JOHNSON LDOB: 5 (59 yo F)Acc No.[id number]:04/23/2024 Patient: Hernandez MOHSENLin Jannet :1965 A ge:59 Y S ex:Female Address:[address], [place] [address] * true * Date: Generated for Bert egan/Isaak/Marie on: 08/03/2024 08:17 AM EST
--- OUTSIDE RECORDS SUMMARY | 2024-04-23 08:33 | XMS_ITS ---
Author Organization Giuseppe Kumar III, MD Address [address] [place] [address] [place] [address] Care Team Providers Care Transformation Lead Name Role Phone Dr. Giuseppe Kumar III Primary Care Provider [phone] Medications Medication SIG (Take, Route, Frequency, Duration) Notes Start Date End Date Status Paxlovid (300/100) 20 x 150 MG & 10 x 100MG 3 tablets Orally Twice a day for 5 days gfr over 60 12/09/2023 04/23/2024 Active Social History Sex Assigned At : Social History Observation Description Sex Assigned At Female Encounters Encounter Location Date Provider Diagnosis Giuseppe Kumar III, MD [address] [place] [address] [place] [address] 04/23/2024 Giuseppe Kumra Plan Of Treatment Medication Medication Name Sig Start Date Stop Date Notes Paxlovid (300/100) 20 x 150 MG & 10 x 100MG 3 tablets Orally Twice a day for 5 days 04/23/2024 gfr over 60 12/09/2023 Next Appt Details Provider Name:Giuseppe Kumar , 08/03/2025 09:30:00 AM, [address] [place] [address] [place], [address], Progress Notes * Lin JOHNSON LDOB: 5 (59 yo F)Acc No.[id number]:04/23/2024 Patient: Lin KRAFT :1965 A ge:59 Y S ex:Female Address:[address] [place] [phone] * Refills Start Paxlovid (300/100) Tablet Therapy Pack, 20 x 150 MG & 10 x 100MG, Orally, 30, 3 tablets, Twice a day, 5 days, Refills=0 * true * Date: Generated for Bert egan/Isaak/Xavieritting on: 08/03/2024 08:17 AM EST
--- OUTSIDE RECORDS SUMMARY | 2024-04-27 04:22 | XMS_ITS ---
Author Organization Giuseppe Kumar III, MD Address [address] [place] [address] [place] [address] Care Team Providers Care Bailer Operators Supervisor Name Role Phone Dr. Giuseppe Kumar III Primary Care Provider REASON FOR VISIT Message Social History Sex Assigned At : Social History Observation Description Sex Assigned At Female Encounters Encounter Location Date Provider Diagnosis Giuseppe Kumar III, MD [address] [place] [address] [place] [address] 04/27/2024 Giuseppe Kumar Plan Of Treatment Next Appt Details Provider Name:Giuseppe Kumar , 08/03/2025 09:30:00 AM, [address] [place] [address] [place], [address], Progress Notes * Lin JOHNSON LDOB: 5 (59 yo F)Acc No.[id number]:04/27/2024 Patient: Hernandez Lin CONNOLLY :1965 A ge:59 Y S ex:Female Address:[address] [place] [phone] * true * Date: Generated for Bert egan/Isaak/Marie on: 08/03/2024 08:18 AM EST
--- OUTSIDE RECORDS SUMMARY | 2024-07-27 10:30 | XMS_ITS ---
Author Organization Giuseppe Kumar III, MD Address [address] [place] [address] [place] [address] Care Team Providers Care Senior Gl Accountant Name Role Phone Dr. Giuseppe Kumar III Primary Care Provider REASON FOR VISIT annual exam Social History Sex Assigned At : Social History Observation Description Sex Assigned At Female Encounters Encounter Location Date Provider Diagnosis Giuseppe Kumar III, MD [address] [place] [address] [place] [address] 07/27/2024 Giuseppe Kumar Plan Of Treatment Next Appt Details Provider Name:Giuseppe Kumar , 08/03/2025 09:30:00 AM, [address] [place] [address] [place], [address], Progress Notes * Lin JOHNSON LDOB: 5 (60 yo F)Acc No.[id number]:07/27/2024 Progress Notes Patient: Lin KRAFT Provider: Gi Kumar MD :1965 A ge:59 Y S ex:Female Date:07/27/2024 Address:[address] [place] [address] [place], [id number] Subjective: * Chief Complaints: * 1 . Annual exam. * Medical History: Objective: * Vitals: Assessment: Plan: * Treatment: * Images: * The named appointment provid er may or may not be the originator of this progress note, and it is not deemed complete until electronically signed by the appointment provider. Sign off status: Pending * Provider: Gi Kumar MD Date: 0 07/27/2024 Generated for Bert egan/Isaak/Raimundosmitting on: 1 08/03/2024 08:17 AM EST
--- OUTSIDE RECORDS SUMMARY | 2024-07-30 04:15 | XMS_ITS ---
Author Organization Giuseppe Kumar III, MD Address [address] [place] [address] [place] [address] Care Team Providers Care Application Integration Engineer Name Role Phone Dr. Giuseppe Kumar III Primary Care Provider Allergies Allergen (clinical drug ingredient) Drug/Non Drug Allergy documented on EMR Reaction Allergy Type Onset Date Status Seasonale Unknown Drug Allergy Active Banana Concentrate Unknown Drug Allergy Active Results Component Value Reference Range Notes URINE DIP STICK Reviewed date:07/30/2024 09:22:08 AM Interpretation: Performing Lab: Notes/Report: SG 1.025 1.005 - 1.025 pH 5.0 5.0 - 9.0 PATY 15 Negative - NIT Neg Negative - PRO 15 Negative - Trace GLU Neg Negative - KET Neg Negative - UBG 0. 0.1 - 1.8 LUIS Neg 0.2 - 1.3 BLD neg Negative - Lipid Panel Reviewed date:11/08/2024 08:18:13 PM Interpretation: Performing Lab:[facility], [address] [place] [id number] Notes/Report: Triglycerides 98 <150 mg/dL Desirable Triglyceride: less than 150 mg/dL Borderline High Triglyceride 150-199 mg/dL High Triglyceride: 200-499 mg/dL Very High Triglyceride: greater than or equal to 5OO mg/dL Cholesterol 183 <200 mg/dL Desirable Cholesterol: less than 200 mg/dL Borderline High Cholesterol: 200-239 mg/dL High Cholesterol: greater than 239 mg/dL LDL Cholesterol Calculated 120 <100 mg/dL Desirable LDL: less than 100 mg/dL Near Optimal/Above Optimal LDL: 110-129 mg/dL Borderline High LDL: 130-159 mg/dL High LDL: 160-189 mg/dL Very High LDL: greater than or equal to 190 mg/dL HDL Cholesterol 44 >40 mg/dL Desirable HDL: greater than 40 mg/dL Note: This HDL assay may give artificially low results in patients with liver disease. Microalbumin, Random Reviewed date:11/08/2024 08:18:13 PM Interpretation: Performing Lab:[address] [id number] Notes/Report: Creatinine Urine 120.18 Microalbumin Urine 8.0 Microalbum/Creatinine Ratio Ur 6.6 <30 ug/mg cr Albumin/Creatinine Ratio Reference Ranges: Normal: < 30 ug/mg creatinine Microalbuminuria: 30 - 300 ug/mg creatinine Clinical Albuminuria: > 300 ug/mg creatinine Hemoglobin A1c Reviewed date:11/08/2024 08:18:13 PM Interpretation: Performing Lab:[facility], [address] [place] [phone] Notes/Report: Hemoglobin A1c % 6.0 <6.0 % Hemoglobin A1C Reference Range Adults: 4.8 - 6.0 % Non diabetic: < 6.0 % Goal: < 7.0 % Additional Action Suggested: > 8.0 % Note: Hemoglobin A1c results are invalid for patients with abnormal amounts of HbF. Blood transfusions may impact the HbA1c concentration in the patient sample. Estimated Average Glucose 126 eAG = Estimated average glucose which is %A1C expressed as average glucose, using the formula of the [id number] Average Glucose study (ADAG), Diabetes Care, Vol.31,#8, Jan. 2007 Reason For Referral Reason over due for her col onoscopy Has been seen in the past Diagnosis 1 Encounter for screen ing for malignant neoplasm of colon (Z12.11) Referral Organization Giuseppe Kumar III, MD Referring Provider First Name Giuseppe Referring Provider Last Name Kumar Referring Provider Speciality Internal M edicine Referred Provider [facility], Gastroenterology Referred Provider Specialty Gastroentero logy General Notes Harmony Bucio CARLOS 08/03 04:50:11 PM > ref/demo/progress note faxed to [facility], Harmony Bucio CARLOS 08/18/2024 03:10:59 PM >Called [facility] they have referral and will be calling patient within the next few weeks to set up colonscopy, Rupinder Harmony CARLOS 08/27/2024 02:09:02 PM >Called [facility] gastro they have not called patient as of yet for appt they will put in a note to have the surgery scheduler to call her with appt, Harmony Bucio CARLOS 10/05/2024 02:45:51 PM > [facility] they stated they have not called pt as of yet will send another message to surgery scheduler to set pt up for appt, Ramona Ng 12/03/2024 09:12:05 AM > Patient scheduled appointment for 01/04/25 @ 7:30am, patient is unsure who the provider is. Referral Priority Routine Referral Appointment Date 01/04/2025 Reason diabetic eye care check for Cataracts Diagnosis 1 Type 2 diabetes araseli itus without complication, without long-term current use of insulin (E11.9) Referral Organization Giuseppe Kumar III, MD Referring Provider First Name Giuseppe Referring Provider Last Name Kumar Referring Provider Speciality Internal M edicine Referred Provider [facility] Referred Provider Specialty Ophthalmolog y, Cataracts General Notes Harmony Bucio CARLOS 08/03 04:51:28 PM >ref/demo/progress note/labs [facility], Harmony Bucio CARLOS 08/10/2024 02:14:38 PM >received fax notice from [facility] pt has appt on 08/24/[address] De Jesus in [place] . Referral Priority Routine Referral Appointment Date 08/24/2024 REASON FOR VISIT annual exam Medications Medication SIG (Take, Route, Fr equency, Duration) Notes Start Date End Date Status metFORMIN HCl 500 MG TAKE 1 TABLET BY MO UT EVERY DAY WITH A MEAL Active Gralise 600 MG 2 tablet Orally Once a day Active Trospium Chloride 20 MG 1 tablet [...] (Standard) Question Answer Notes Tobacco use: Nonsmoker Additional Findings: Tobacco non-user Aggressive nonsmoker AUDIT-C (Standard) Question Answer Notes Did you have a drink containing alcohol in the p ast year? No Points 0 Interpretation Negative Vital Signs Temperature 98.6 degrees Fahrenheit 07/30/19 25 Blood pressure systolic 140 mm Hg 07/30/19 25 Blood pressure diastolic 80 mm Hg 025 Heart Rate 80 /min 07/30/2024 Height 62 in 07/30/2024 Weight 217 lbs 07/30/2024 BMI 39.69 kg/m2 07/30/2024 Encounters Encounter Location Date Provider Diagnosis Giuseppe Kumar III, MD [address] [place] [address] [facility] [address] 07/30/2024 Giuseppe Kumar Localized osteoarthr itis of left knee M17.12 ; Lumbar radiculopathy, acute M54.16 ; Panic attacks F41.0 ; Hyperlipidemia E78.5 ; Depression F32.9 ; Type 2 diabetes mellitus without complication, without long-term current use of insulin E11.9 ; Obesity E66.9 and Acute left-sided low back pain without sciatica M54.50 Assessments Encounter Date Diagnosis (ICD Code) Assessment Notes Treat ment Notes Treatment Clinical Notes 07/30/2024 Localized osteoarthritis of left knee (ICD-10 - M17.12) Her left knee has healed well after surgery and is much less painful. He remains under the care of orthopedics. 07/30/2024 Lumbar radiculopathy , acute (ICD-10 - M54.16) Low back pain is mild but present. She is avoiding heavy lifting. 07/30/2024 Panic attacks (ICD-1 0 - F41.0) She is taking 20 mg of fluoxetine daily doing well. She feels much better and is functioning normally. 07/30/2024 Hyperlipidemia (ICD-10 - E78.5) The current fasting lipid profile shows good control of her lipids and no change in her medications was necessary. 07/30/2024 Depression (ICD-10 - F32.9) Her depression is stable and no change in her regimen was made. 07/30/2024 Type 2 diabetes mellitus without complication, without long-term current use of insulin (ICD-10 - E11.9) Her hemoglobin A1c is 6.0. Her regimen was continued without change. We reviewed the necessity for weight loss. 07/30/2024 Obesity (ICD-10 - E66.9) Her body mass index is 39. We discussed her diabetes and weight at length. We made a plan to lose weight at a rate of one half of a pound per week through diet restricted in fat calories and sodium. She will be seen after blood work in the near future. 07/30/2024 Acute left-sided low back pain without sciatica (ICD-10 - M54.50) Her pain has become milder and she is able to conduct all of the activities of daily life. Plan Of Treatment Medication Medication Name Sig Start Date Stop Date Notes metFORMIN HCl 500 MG TAKE 1 TABLET BY [facility] EVERY DAY WITH A MEAL Gralise 600 MG 2 tablet Orally Once a day Trospium Chloride 20 MG 1 tablet at bedt celina on an empty stomach Orally twice a day Apple Cider Vinegar - as directed Orally Pending Test Test Name Order Date PROFILE, FASTING (COMPREHENSIVE METABOLI C) 07/30/2024 CBC w DIFF 07/30/2024 Referrals Referral Date Details 07/30/2024 07/30/2024, over due for her colonoscopy Has been seen in the past, [facility] 07/30/2024 07/30/2024, diabetic eye care check for Cataracts, [facility] Next Appt Details Follow Up: 4 Months, Reason: ov review labs Provider Name:Giuseppe Kumar , 08/03/2025 09:30:00 AM, [address] [place] [address] DR FELY Emmanuel, [place], [id number], Progress Notes * Lin JOHNSON LDOB: [birth year] (59 yo F)Acc No.[id number]:07/30/2024 Progress Notes Patient: Lin KRAFT Provider: Gi Kumar MD :1965 A ge:59 Y S ex:Female Date:07/30/2024 Address:[id number] Subjective: * Chief Complaints: * A nnual exam * HPI: D epression Screening: She returns today Far her annual examination at the age of 59.? She is feeling healthy and well. 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 Her daughter is well. She has had no panic attacks of pain. Her depression is minimal. Her back pain has resolved. She has not been keeping track of her glucose levels. She is taking will go 3 with excellent results having lost 7 pounds. S he will be seen monthly while she is on this medication. PHQ-9 L ittle interest or pleasure in doing things?Not at all F eeling down, depressed, or hopeless N ot at all T rouble falling or staying asleep, or sleeping too much N ot at all F eeling tired or having little energy M ore than half the days P oor appetite or overeating N ot at all F eeling bad about yourself or that you are a failure, or have let yourself or your family down M ore than half the days T rouble concentrating on things, such as reading the newspaper or watching television N ot at all M oving or speaking so slowly that other people could have noticed; or the opposite, being so fidgety or restless that you have been moving around a lot more than usual N ot at all T houghts that you would be better off or of hurting yourself in some way N ot at all T otal Score 4 I nterpretation M inimal Depression C OVID-19 Screening: Questions H ave you had any new onset fever, chills, cough, congestion, sore throat, shortness of breath, muscle aches? N o S JONATHAN Questions: SDOH Questions I n the past year have you been worried about losing your housing? N o I n the past year have you or any family members you live with been unable to get any of the following when it was really needed? Check all that apply: N one * ROS: G eneral/Constitutional: pain I ntermittent lumbar spine, otherwise only normal aches and pains. C hills d enies. F atigue a dmits. F ever d enies. ? E NT: Decreased hearing d enies. R espiratory: Cough d enies. C ardiovascular: Chest pain with exertion d [...] a t night. M usculoskeletal: Muscle aches d enies. P ainful joints d enies. S ciatica d enies. W eakness d enies. S kin: Itching d enies. R dwight d enies. S kin lesion(s)?denies. N eurologic: Difficulty speaking d enies. D izziness d enies.?Headache d enies. L ow back pain d enies. P sychiatric: Depressed mood d enies. * Medical History: * Surgical History: 2 012 breast surgery Back Surgery 2016Left knee surgery 07/05/2023No history * Hospitalization/Major Diagno [...] Control (Standard) T obacco use: N onsmoker A dditional Findings: Tobacco non-user A ggressive nonsmoker D rugs/Alcohol: D rugs H ave you used drugs other than those for medical reasons in the past 12 months? N o D rug/Alcohol: A СВЕТЛАНА-C (Standard) D id you have a drink containing alcohol in the past year? N o P oints 0 I nterpretation N egative S he has been for many years. She is now retired. * Medications: T akingmetFORMIN HCl 500 MG Tablet TAKE 1 TABLET BY MOUTH EVERY DAY WITH A MEAL Trospium Chloride 20 MG Tablet 1 tablet [...] Tablet 2 tablet Orally Once a day DiscontinuedPaxlovid (300/100) 20 x 150 MG & 10 x 100MG Tablet Therapy Pack 3 tablets Orally Twice a day , Notes to Pharmacist: gfr over 60 12/09/2023Medication List reviewed and reconciled with the patientDiscontinued Paxlovid (300/100) 20 x 150 MG & 10 x 100MG Tablet Therapy Pack 3 tablets Orally Twice a day , Notes to Pharmacist: gfr over 60 12/09/2023Medication List reviewed and reconciled with the patient * Allergies: B anana ConcentrateSeasonaleno[Allergies Verified] Objective: * Vitals: H t: 62, Wt: 217, BMI:39.69, BP: 140/80, HR: 80, Temp: 98.6, Wt-k.43. * Examination: G eneral Examination: GENERAL APPEARANCE: p leasant, well nourished, well developed, in no acute distress, calm and relaxed, obese, woman. HEAD: a traumatic, normocephalic. EYES: e nicola, perrla, anicteric, conjugate. EARS: n ormal. NOSE: s eptum intact. ORAL CAVITY: n ormal, unremarkable. NECK/THYROID: n o jugular venous distention, no carotid bruit, thyroid normal. LYMPH NODES: n o enlarged lymph nodes,spleen normal. SKIN: n o suspicious lesions, anicteric. HEART: n o clicks, gallops, murmurs, or rubs, regular rhythm, S1, S2 normal, no s3, or vascular bruits. LUNGS: c lear to auscultation . BREASTS: D one by SAP PROJECT MANAGER, Dr. Iraheta. ABDOMEN: b owel sounds normal, no ascites, no organomegaly, no mass, centripital obesity. RECTAL EXAM: D one by SAP PROJECT MANAGER. MUSCULOSKELETAL: e xtremities unremarkable, no clubbing, cyanosis or edema, Crepitus, left knee, mild decrease of range of motion lumbar spine. PERIPHERAL PULSES: n ormal. NEUROLOGIC: a lert and oriented, cranial nerves 2-12 grossly intact, deep tendon reflexes 2+ symmetrical, motor strength normal upper and lower extremities, sensory exam intact. PSYCH: a lert, oriented. Assessment: * Assessment: 1. L umbar radiculopathy, acute - M54.16 (Primary) N otes :Low back pain is mild but present. She is avoiding heavy lifting. 2 . L ocalized osteoarthritis of left knee - M17.12 N otes :Her left knee has healed well after surgery and is much less painful. He remains under the care of orthopedics. 3 . P anic attacks - F41.0 N otes :She is taking 20 mg of fluoxetine daily doing well. She feels much better and is functioning normally. 4 . H yperlipidemia - E78.5 N otes :The current fasting lipid profile shows good control of her lipids and no change in her medications was necessary. 5 . D epression - F32.9 N otes :Her depression is stable and no change in her regimen was made. 6 . T ype 2 diabetes mellitus without complication, without long-term current use of insulin - E11.9 N otes :Her hemoglobin A1c is 6.0. Her regimen was continued without change. We reviewed the necessity for weight loss. 7 . O besity - E66.9 N otes :Her body mass index is 39. We discussed her diabetes and weight at length. We made a plan to lose weight at a rate of one half of a pound per week through diet restricted in fat calories and sodium. She will be seen after blood work in the near future. 8 . A cute left-sided low back pain without sciatica - M54.50 N otes :Her pain has become milder and she is able to conduct all of the activities of daily life. Plan: * Treatment: 2. H yperlipidemia L AB: PROFILE, FASTING (COMPREHENSIVE METABOLIC) L AB: CBC w DIFF L AB: Lipid Panel L AB: Microalbumin, Random L AB: Hemoglobin A1c 3. T ype 2 diabetes mellitus without complication, without long-term current use of insulin L AB: PROFILE, FASTING (COMPREHENSIVE METABOLIC) L AB: CBC w DIFF L AB: Lipid Panel L AB: Microalbumin, Random L AB: Hemoglobin A1c Referral To:[facility], Cataracts Reason:diabetic eye care check for Cataracts 4. O besity L AB: PROFILE, FASTING (COMPREHENSIVE METABOLIC) L AB: CBC w DIFF L AB: Lipid Panel L AB: Microalbumin, Random L AB: Hemoglobin A1c 5. O thers Continue metFORMIN HCl Tablet, 500 MG, TAKE 1 TABLET BY MOUTH EVERY DAY WITH A MEAL. ? Referral To:[facility] Gastroenterology Reason:over due for her colonoscopy Has been seen in the past * Labs: * L ab: URINE DIP STICK (Collection Date & Time - 07/30/2024) Value Reference Range S G 1.025 1.005 - 1.025 * p H 5.0 5.0 - 9.0 * L EU 15 Negative - * N IT Neg Negative - * P RO 15 Negative - Trace * G POPPY Neg Negative - * K ET Neg Negative - * U BG 0. 0.1 - 1.8 * B IL Neg 0.2 - 1.3 * B LD neg Negative - * Procedure Codes: 8 1002 URINE-NO MICRO * Preventive Medicine: Counseling: C are goal follow-up plan: Counseling for abnormal BMI given Y es Above Normal BMI Follow-up D ietary management education, guidance, and counseling, Dietary needs education, Exercise promotion: strength training, Exercise promotion: stretching, Feeding regime, Giving encouragement to exercise, Lifestyle education regarding diet, Nutrition / feeding management, Nutrition therapy, Prescribed activity/exercise education, Prescribed diet education, Prescribed dietary intake, Special diet education, Weight monitoring , Intervention, Order not done: Medical or Other reason not done DM Care Plan: P atient Lifestyle Goals P atient wants to be able to manage diabetes without too much effort. T reatment Goals H bA1C < 7.0, Blood Sugars less than < 115. B arriers n o barriers. S elf-Managment Goals W ork on weight loss, with a goal of losing 1 lb per week. * Follow Up: 4 Months (Reason: ov review labs) * Images: * Sign off status: Completed true * Provider: Gi Kumar MD Date: 0 07/30/2024 Generated for Bert egan/Isaak/eTransmitting on: 1 08/03/2024 08:18 AM EST History and Physical Notes * HPI (History of Present Illness) Category Sub-Category Detail Notes Depression Screening PHQ-9 Little inte rest or pleasure in doing things: Not at all Feeling down, depressed, or hopeless: No t at all Trouble falling or staying asleep, or sl eeping too much: Not at all Feeling tired or having little energy: M ore than half the days Poor appetite or overeating: Not at all Feeling bad about yourself o r that you are a failure, or have let yourself or your family down: More than half the days Trouble concentrating on thi ngs, such as reading the newspaper or watching television: Not at all Moving or speaking so slowly that other people could have noticed; or the opposite, being so fidgety or restless that you have been moving around a lot more than usual: Not at all Thoughts that you would be b hazel off or of hurting yourself in some way: Not at all Total Score: 4 Interpretation: Minimal Depression COVID-19 Screening Questions Have you had any new onset fever, chills, cough, congestion, sore throat, shortness of breath, muscle aches?: No SDOH Questions SDOH Questions In the past year have you been worried about losing your housing?: No In the past year have you or any family members you live with been unable to get any of the following when it was really needed? Check all that apply:: None Examination Category Sub-Category Detail Notes General Examination GENERAL APPEARANCE: pleasant , well nourished, well developed, in no acute distress, calm and relaxed, obese, woman HEAD: atraumatic, normocep halic EYES: eomi, perrla, anicte amber, conjugate EARS: normal NOSE: septum intact NECK/THYROID: no jugular venous di stention, no carotid bruit, thyroid normal HEART: no clicks, gallops, murmurs, or rubs, regular rhythm, S1, S2 normal, no s3, or vascular bruits LUNGS: clear to auscultatio n ABDOMEN: bowel sounds normal, no ascites, no organomegaly, no mass, centripital obesity NEUROLOGIC: alert and oriented, cranial nerves 2-12 grossly intact, deep tendon reflexes 2+ symmetrical, motor strength normal upper and lower extremities, sensory exam intact SKIN: no suspicious lesion s, anicteric PERIPHERAL PULSES: normal BREASTS: Done by SAP PROJECT MANAGER, Dr. Keon robbins MUSCULOSKELETAL: extremities unremark able, no clubbing, cyanosis or edema, Crepitus, left knee, mild decrease of range of motion lumbar spine LYMPH NODES: no enlarged lymph no ector,spleen normal RECTAL EXAM: Done by SAP PROJECT MANAGER PSYCH: alert, oriented ORAL CAVITY: normal, unremarkable Consultation Request Notes Referral Date Referring Provider Referred Provider Not es 07/30/2024 Giuseppe Kumar [facility], Gastroenterology over due for her colonoscopy Has been seen in the past 07/30/2024 Giuseppe [facility], [facility] eye care check for Cataracts
--- OUTSIDE RECORDS SUMMARY | 2024-12-03 12:00 | XMS_ITS ---
Author Organization Giuseppe Kumar III, MD Address [address] [place] [address] [place] [address] Care Team Providers Care Loss Prevention Leader Name Role Phone Dr. Giuseppe Kumar III Primary Care Provider REASON FOR VISIT follow up Social History Sex Assigned At : Social History Observation Description Sex Assigned At Female Encounters Encounter Location Date Provider Diagnosis Giuseppe Kumar III, MD [address] [place] [address] [place] [address] 12/03/2024 Giuseppe Kumar Plan Of Treatment Next Appt Details Provider Name:Giuseppe Kumar , 08/03/2025 09:30:00 AM, [address] [place] [address] [place], [address], Progress Notes * Lin JOHNSON LDOB: 5 (60 yo F)Acc No.[id number]:12/03/2024 Progress Notes Patient: Lin KRAFT Provider: Gi Kumar MD :1965 A ge:59 Y S ex:Female Date:12/03/2024 Address:[address] [place] [id number] Subjective: * Chief Complaints: * 1 . Follow up. * Medical History: Objective: * Vitals: Assessment: Plan: * Treatment: * Images: * The named appointment provid er may or may not be the originator of this progress note, and it is not deemed complete until electronically signed by the appointment provider. Sign off status: Pending * Provider: Gi Kumar MD Date: 0 12/03/2024 Generated for Bert egan/Isaak/Xavieritting on: 1 08/03/2024 08:17 AM EST
--- OUTSIDE RECORDS SUMMARY | 2024-12-16 09:30 | XMS_ITS ---
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 Giuseppe Kumar III Primary Care Provider Allergies Allergen (clinical drug ingredient) Drug/Non Drug Allergy documented on EMR Reaction Allergy Type Onset Date Status Seasonale Unknown Drug Allergy Active Banana Concentrate Unknown Drug Allergy Active REASON FOR VISIT Pain for 1 month left Achilles tendon, Hyperlipidemia, Depression, Lumbar radiculopathy, Obesity, Arthritis left knee Medications Medication SIG (Take, Route, Fr equency, Duration) Notes Start Date End Date Status metFORMIN HCl 500 MG TAKE 1 TABLET BY [facility] EVERY DAY WITH A MEAL Active Trospium Chloride 20 MG 1 tablet at bedt celina on an empty stomach Orally twice a day Active Apple Cider Vinegar - as directed Orally Active Gralise 600 MG 2 tablet Orally Once a day Active Social History Tobacco Use: Social History Observation Description Date Details (start date - stop date) Never Smoker NA - NA Sex Assigned At : Social History Observation Description Sex Assigned At Female Tobacco Control (Standard) Question Answer Notes Tobacco use: Nonsmoker Additional Findings: Tobacco non-user Aggressive nonsmoker Problems Problem Type SNOMED Code ICD Code Onset Dates Problem Status W/U Status Risk Notes Problem 648902122012495 Localized osteoarthritis of left knee (M17.12) Active confirmed Her left knee has healed well after surgery and is much less painful. She remains under the care of orthopedics. Problem 78356644 Type 2 diabetes mellitus without complication, without long-term current use of insulin (E11.9) Active confirmed She is compliant with her medication. Her hemoglobin A1c is 6.1. No change in her medication was made. She is encouraged to lose weight. Vital Signs Temperature 97.4 degrees Fahrenheit 12/17/19 25 Blood pressure systolic 137 mm Hg 12/17/19 25 Blood pressure diastolic 82 mm Hg 025 Heart Rate 88 /min 12/16/2024 Height 62 in 12/16/2024 Weight 212 lbs 12/16/2024 BMI 38.77 kg/m2 12/16/2024 Encounters Encounter Location Date Provider Diagnosis Giuseppe Kumar III, MD [address] [place] [address] [place] [address] 12/16/2024 Giuseppe Kumar Obesity E66.9 ; Lumb ar radiculopathy, acute M54.16 ; Localized osteoarthritis of left knee M17.12 ; Hyperlipidemia E78.5 ; Irritable bowel syndrome K58.9 ; Depression F32.9 and Type 2 diabetes mellitus without complication, without long-term current use of insulin E11.9 Assessments Encounter Date Diagnosis (ICD Code) Assessment Notes Treat ment Notes Treatment Clinical Notes 12/16/2024 Obesity (ICD-10 - E66.9) Made a plan to lose weight at a rate of 1 pound per week. We discussed diet and nutrition at length. 12/16/2024 Lumbar radiculopathy , acute (ICD-10 - M54.16) Low back pain is mild but present. She is avoiding heavy lifting. 12/16/2024 Localized osteoarthritis of left knee (ICD-10 - M17.12) Her left knee has healed well after surgery and is much less painful. He remains under the care of orthopedics. 12/16/2024 Hyperlipidemia (ICD-10 - E78.5) Her total cholesterol is within the target range at this time. I have discussed her weight reduction cholesterol low diet with her at length today. We formulated a weight loss strategy. 12/16/2024 Irritable bowel syndrome (ICD-10 - K58.9) Her abdominal symptoms have been very mild lately 12/16/2024 Depression (ICD-10 - F32.9) Her depression is stable and no change in her regimen was made. 12/16/2024 Type 2 diabetes mellitus without complication, without long-term current use of insulin (ICD-10 - E11.9) Her hemoglobin A1c was 7.5 in February 2021. With the metformin has normalized and she has done well. Plan Of Treatment Medication Medication Name Sig Start Date Stop Date Notes metFORMIN HCl 500 MG TAKE 1 TABLET BY [facility] EVERY DAY WITH A MEAL Trospium Chloride 20 MG 1 tablet at bedt celina on an empty stomach Orally twice a day Apple Cider Vinegar - as directed Orally Gralise 600 MG 2 tablet Orally Once a day Pending Test Test Name Order Date PROFILE, FASTING (COMPREHENSIVE METABOLI C) 12/16/2024 CBC w DIFF 12/16/2024 Lipid Panel 12/16/2024 Hemoglobin A1c 12/16/2024 Next Appt Details Follow Up: 3 Months, Reason: OV Provider Name:Giuseppe Kumar , 08/03/2025 09:30:00 AM, [address] [place] [address] [address] [address], [place], [address], Progress Notes * Lin JOHNSON LDOB: 5 (59 yo F)Acc No.[id number]:12/16/2024 Progress Notes Patient: Lin KRAFT Provider: Gi Kumar MD :1965 A ge:59 Y S ex:Female Date:12/16/2024 Address:[address] [place], [place] [id number] Subjective: * Chief Complaints: * P ain for 1 month left Achilles tendonHyperlipidemiaDepressionLumbar radiculopathyObesityArthritis left knee * HPI: C OVID-19 Screening: S he returns for a scheduled visit for medical management. The pain in her left knee has resolved. She continues her efforts at weight loss. Her low back pain is very minimal disc time. Her depression is in remission. She has had no panic attacks. She is not smoking. We discussed her 's traumatic brain injury at length today. She continues to see the rehabilitation doctor, Dr. Díaz, who has given her 600 mg of gabapentin twice a day.In general she is doing well. Questions H ave you had any new onset fever, chills, cough, congestion, sore throat, shortness of breath, muscle aches? N o * ROS: G eneral/Constitutional: pain L eft heel. C hills d enies. F atigue a dmits. F ever d enies. E NT: Decreased hearing d enies. R [...] have been noted. G enitourinary: Frequent urination d enies. M usculoskeletal: Muscle aches d enies. P ainful joints L eft knee now painless. S ciatica d enies. W eakness d enies. S kin: Itching d enies. R dwight d enies. S kin lesion(s)?denies. N eurologic: Difficulty speaking d enies. D izziness d enies.?Headache d enies. L ow back pain t hat is chronic. P sychiatric: Depressed mood w hich is mild. * Medical History: * Surgical History: 2 [...] , pancreatic cancer, diagnosed with Cancer. M ateluc Grand Mother: , adult onset diabetes mellitus, [...] dditional Findings: Tobacco non-user A ggressive nonsmoker S he has been for many years. [...] Tablet 2 tablet Orally Once a day Medication List reviewed and reconciled with the patientTaking metFORMIN HCl 500 MG Tablet TAKE 1 TABLET BY MOUTH EVERY DAY WITH A MEAL Taking Trospium Chloride 20 MG Tablet 1 tablet at bedtime on an empty stomach Orally twice a day Taking Apple Cider Vinegar - Tablet as directed Orally Taking Gralise 600 MG Tablet 2 tablet Orally Once a day Medication List reviewed and reconciled with the patient * Allergies: B anana ConcentrateSeasonaleno[Allergies Verified] Objective: * Vitals: H t: 62, Wt: 212, BMI:38.77, BP: 137/82, HR: 88, Temp: 97.4, Wt-k.16. * P ast Orders: Lab:Hemoglobin A1c * Collection Date 12/05/2024 07/31/2024 04/18/2024 Collection Time 09:44 AM 09:19 AM 08:55 AM Order Date 12/05/2024 07/30/2024 04/18/2024 Hemoglobin A1c % 6.0 (Ref Range: <6.0 %) 6.0 (Ref Range: <6.0 %) 6.1 H (Ref Range: <6.0 %) Estimated Average Glucose 126 (Ref Range: mg/dL) 126 (Ref Range: mg/dL) 128 (Ref Range: mg/dL) * Lab:Lipid Panel * Collection Date 12/05/2024 07/31/2024 04/18/2024 Collection Time 09:44 AM 09:19 AM 08:55 AM Order Date 12/05/2024 07/30/2024 04/18/2024 Triglycerides 132 (Ref Range: <150 mg/dL) 98 (Ref Range: <150 mg/dL) 117 (Ref Range: <150 mg/dL) Cholesterol 194 (Ref Range: <200 mg/dL) 183 (Ref Range: <200 mg/dL) 178 (Ref Range: <200 mg/dL) LDL Cholesterol Calculated 123 H (Ref Range: <100 mg/dL) 120 H (Ref Range: <100 mg/dL) 109 H (Ref Range: <100 mg/dL) HDL Cholesterol 45 (Ref Range: >40 mg/dL) 44 (Ref Range: >40 mg/dL) 46 (Ref Range: >40 mg/dL) * Lab:Comprehensive [facility]. Augie l Fast * Collection Date 12/05/2024 07/31/2024 04/18/2024 Collection Time 09:44 AM 09:19 AM 08:55 AM Order Date 12/05/2024 07/31/2024 04/18/2024 Sodium 139 (Ref Range: 135-145 mmol/L) 141 (Ref Range: 135-145 mmol/L) 145 (Ref Range: 135-145 mmol/L) Bilirubin Total 0.5 (Ref Range: 0.0-1.0 mg/dL) 0.6 (Ref Range: 0.0-1.0 mg/dL) 0.4 (Ref Range: 0.0-1.0 mg/dL) Aspartate Amino Transferase 20 (Ref Range: 5-31 U/L) 23 (Ref Range: 5-31 U/L) 32 H (Ref Range: 5-31 U/L) Alanine Aminotransferase 39 H (Ref Range: 0-31 U/L) 39 H (Ref Range: 0-31 U/L) 41 H (Ref Range: 0-31 U/L) Total Protein 7.2 (Ref Range: 6.5-8.0 g/dL) 7.9 (Ref Range: 6.5-8.0 g/dL) 7.4 (Ref Range: 6.5-8.0 g/dL) Albumin Level 4.1 (Ref Range: 3.5-5.0 g/dL) 4.1 (Ref Range: 3.5-5.0 g/dL) 4.1 (Ref Range: 3.5-5.0 g/dL) Alkaline Phosphatase 73 (Ref Range: 39-117 U/L) 70 (Ref Range: 39-117 U/L) 68 (Ref Range: 39-117 U/L) Potassium 4.6 (Ref Range: 3.3-5.1 mmol/L) 4.4 (Ref Range: 3.3-5.1 mmol/L) 4.3 (Ref Range: 3.3-5.1 mmol/L) Chloride 106 (Ref Range: 96-108 mmol/L) 106 (Ref Range: 96-108 mmol/L) 109 H (Ref Range: 96-108 mmol/L) Carbon Dioxide 27 (Ref Range: 22-29 mmol/L) 28 (Ref Range: 22-29 mmol/L) 27 (Ref Range: 22-29 mmol/L) Anion Gap 11 L (Ref Range: 12-20) 11 L (Ref Range: 12-20) 13 (Ref Range: 12-20) Blood Urea Nitrogen 14 (Ref Range: 9-16 mg/dL) 14 (Ref Range: 9-16 mg/dL) 9 (Ref Range: 9-16 mg/dL) Creatinine 0.64 (Ref Range: 0.5-1.4 mg/dL) 0.59 (Ref Range: 0.5-1.4 mg/dL) 0.70 (Ref Range: 0.5-1.4 mg/dL) Estimated Glomerular Filt Rate > 60 > 60 > 60 Glucose Fasting 105 H (Ref Range: 60-99 mg/dL) 108 H (Ref Range: 60-99 mg/dL) 105 H (Ref Range: 60-99 mg/dL) Calcium 9.1 (Ref Range: 8.4-10.2 mg/dL) 9.5 (Ref Range: 8.4-10.2 mg/dL) 9.5 (Ref Range: 8.4-10.2 mg/dL) * Lab:Complete Blood Count Aut o Diff * Collection Date 12/05/2024 07/31/2024 04/18/2024 Collection Time 09:44 AM 09:19 AM 08:55 AM Order Date 12/05/2024 07/31/2024 04/18/2024 White Blood Count 5.1 (Ref Range: 4.8-10.8 X10*3/uL) 5.5 (Ref Range: 4.8-10.8 X10*3/uL) 5.6 (Ref Range: 4.8-10.8 X10*3/uL) Red Blood Count 4.84 (Ref Range: 4.20-5.50 X10*6/uL) 4.77 (Ref Range: 4.20-5.50 X10*6/uL) 4.80 (Ref Range: 4.20-5.50 X10*6/uL) Hemoglobin 13.8 (Ref Range: 12.0-16.0 g/dl) 14.0 (Ref Range: 12.0-16.0 g/dl) 14.0 (Ref Range: 12.0-16.0 g/dl) Hematocrit 42.6 (Ref Range: 37.0-47.0 %) 42.4 (Ref Range: 37.0-47.0 %) 42.4 (Ref Range: 37.0-47.0 %) Mean Corpuscular Volume 88.0 (Ref Range: 80.0-98.0 fL) 88.9 (Ref Range: 80.0-98.0 fL) 88.3 (Ref Range: 80.0-98.0 fL) Mean Corpuscular Hemoglobin 28.5 (Ref Range: 27.0-33.0 pg) 29.4 (Ref Range: 27.0-33.0 pg) 29.2 (Ref Range: 27.0-33.0 pg) Mean Corpuscular HGB Conc 32.4 (Ref Range: 31.0-35.0 g/dl) 33.0 (Ref Range: 31.0-35.0 g/dl) 33.0 (Ref Range: 31.0-35.0 g/dl) Red Cell Distribution Width 13.2 (Ref Range: 11.0-16.0 %) 13.1 (Ref Range: 11.0-16.0 %) 13.3 (Ref Range: 11.0-16.0 %) Platelet Count 266 (Ref Range: 160-400 X10*3/uL) 264 (Ref Range: 160-400 X10*3/uL) 264 (Ref Range: 160-400 X10*3/uL) Mean Platelet Volume 10.0 (Ref Range: 9.4-12.3 fL) 10.1 (Ref Range: 9.4-12.3 fL) 9.9 (Ref Range: 9.4-12.3 fL) Neutrophils Percent Auto 48.9 (Ref Range: 45-73 %) 48.9 (Ref Range: 45-73 %) 45.0 (Ref Range: 45-73 %) Imm Gran Pct Auto 0.6 H (Ref Range: 0.0-0.4 %) 0.2 (Ref Range: 0.0-0.4 %) 0.2 (Ref Range: 0.0-0.4 %) Lymphocytes Percent Auto 40.0 (Ref Range: 20-40 %) 41.0 H (Ref Range: 20-40 %) 44.1 H (Ref Range: 20-40 %) Monocytes Percent Auto 7.5 (Ref Range: 2-11 %) 7.3 (Ref Range: 2-11 %) 7.1 (Ref Range: 2-11 %) Eosinophils Percent Auto 1.6 (Ref Range: 0-4 %) 1.1 (Ref Range: 0-4 %) 2.5 (Ref Range: 0-4 %) Basophils Percent Auto 1.4 (Ref Range: 0-2 %) 1.5 (Ref Range: 0-2 %) 1.1 (Ref Range: 0-2 %) NRBC Pct Auto 0.0 (Ref Range: 0.0-0.2 /100WBC) 0.0 (Ref Range: 0.0-0.2 /100WBC) 0.0 (Ref Range: 0.0-0.2 /100WBC) Neutrophils Absolute Auto 2.5 (Ref Range: 2.0-8.3 x10*3/uL) 2.7 (Ref Range: 2.0-8.3 x10*3/uL) 2.5 (Ref Range: 2.0-8.3 x10*3/uL) Imm Gran Abs Auto 0.03 (Ref Range: 0.00-0.03 X10*3/uL) 0.01 (Ref Range: 0.00-0.03 X10*3/uL) 0.01 (Ref Range: 0.00-0.03 X10*3/uL) Lymphocytes Absolute Auto 2.0 (Ref Range: 1.2-4.9 X10*3/uL) 2.3 (Ref Range: 1.2-4.9 X10*3/uL) 2.5 (Ref Range: 1.2-4.9 X10*3/uL) Monocytes Absolute Auto 0.4 (Ref Range: 0.1-1.2 X10*3/uL) 0.4 (Ref Range: 0.1-1.2 X10*3/uL) 0.4 (Ref Range: 0.1-1.2 X10*3/uL) Eosinophils Absolute Auto 0.1 (Ref Range: 0.0-0.4 X10*3/uL) 0.1 (Ref Range: 0.0-0.4 X10*3/uL) 0.1 (Ref Range: 0.0-0.4 X10*3/uL) Basophils Absolute Auto 0.1 (Ref Range: 0.0-0.2 X10*3/uL) 0.1 (Ref Range: 0.0-0.2 X10*3/uL) 0.1 (Ref Range: 0.0-0.2 X10*3/uL) NRBC Abs Auto 0.000 (Ref Range: 0.0-0.012 X10*3/uL) 0.000 (Ref Range: 0.0-0.012 X10*3/uL) 0.000 (Ref Range: 0.0-0.012 X10*3/uL) * Examination: G eneral Examination: GENERAL APPEARANCE: [...] LUNGS: c lear to auscultation . BREASTS: N ot examined. ABDOMEN: b owel sounds normal, no ascites, no organomegaly, no mass, centripital obesity. RECTAL EXAM: n ot examined. MUSCULOSKELETAL: e xtremities unremarkable, no clubbing, cyanosis or edema, Normal range of motion low back neck and knees. PERIPHERAL PULSES: n ormal. NEUROLOGIC: a lert and oriented, cranial nerves 2-12 grossly intact, deep tendon reflexes 2+ symmetrical, motor strength normal upper and lower extremities, sensory exam intact. PSYCH: a lert, oriented. Assessment: * Assessment: 1. L umbar radiculopathy, acute - M54.16 (Primary) N otes :Low back pain is mild but present. She is avoiding heavy lifting. 2 . O besity - E66.9 N otes :Made a plan to lose weight at a rate of 1 pound per week. We discussed diet and nutrition at length. 3 . L ocalized osteoarthritis of left knee - M17.12 N otes :Her left knee has healed well after surgery and is much less painful. He remains under the care of orthopedics. 4 . H yperlipidemia - E78.5 N otes :Her total cholesterol is within the target range at this time. I have discussed her weight reduction cholesterol low diet with her at length today. We formulated a weight loss strategy. 5 . I rritable bowel syndrome - K58.9 N otes :Her abdominal symptoms have been very mild lately 6 . D epression - F32.9 N otes :Her depression is stable and no change in her regimen was made. 7 . T ype 2 diabetes mellitus without complication, without long-term current use of insulin - E11.9 N otes :Her hemoglobin A1c was 7.5 in February 2021. With the metformin has normalized and she has done well. Plan: * Treatment: 2. L ocalized osteoarthritis [...] DIFF L AB: Lipid Panel L AB: Hemoglobin A1c 4. O thers Continue metFORMIN HCl Tablet, 500 MG, TAKE 1 TABLET BY MOUTH EVERY DAY WITH A MEAL. * Procedure Codes: * Preventive Medicine: Counseling: C are goal [...] done: Medical or Other reason not done * Follow Up: 3 Months (Reason: OV) * Images: * Sign off status: Completed true * Provider: Gi Kumar MD Date: 0 12/16/2024 Generated for Soniai ng/Isaak/eTransmitting on: 08/03/2024 08:17 AM EST History and Physical Notes * HPI (History of Present Illness) Category Sub-Category Detail Notes COVID-19 Screening Questions Have you had any new onset fever, chills, cough, congestion, sore throat, shortness of breath, muscle aches?: No Examination Category Sub-Category Detail Notes General Examination [...] lesion s, anicteric PERIPHERAL PULSES: normal BREASTS: Not examined MUSCULOSKELETAL: extremities unremark able, no clubbing, cyanosis or edema, Normal range of motion low back neck and knees LYMPH NODES: no enlarged lymph no ector,spleen normal RECTAL EXAM: not examined PSYCH: alert, oriented ORAL CAVITY: normal, unremarkable
--- OUTSIDE RECORDS SUMMARY | 2025-01-25 06:00 | XMS_ITS ---
Author Organization Giuseppe Kumar III, MD Address [address] [place] [address] [place] [address] Care Team Providers Care Bridge Welder Name Role Phone Dr. Giuseppe Kumar III Primary Care Provider Allergies Allergen (clinical drug ingredient) Drug/Non Drug Allergy documented on EMR Reaction Allergy Type Onset Date Status Seasonale Unknown Drug Allergy Active Banana Concentrate Unknown Drug Allergy Active REASON FOR VISIT Back pain since 01-16, IBS, Obesity, Depression, Lumbar radiculopathy, Diabetes Medications Medication SIG (Take, Route, Fr equency, Duration) Notes Start Date End Date Status Gralise 600 MG 2 tablet Orally Once a day Active Apple Cider Vinegar - as directed Orally Active Trospium Chloride 20 MG 1 tablet at bedt celina on an empty stomach Orally twice a day Active metFORMIN HCl 500 MG TAKE 1 TABLET BY [facility] EVERY DAY WITH A MEAL Active Social History Tobacco Use: Social History Observation Description Date Details (start date - stop date) Never Smoker NA - NA Sex Assigned At : Social History Observation Description Sex Assigned At Female Tobacco Control (Standard) Question Answer Notes Tobacco use: Nonsmoker Additional Findings: Tobacco non-user Aggressive nonsmoker Vital Signs Temperature 98.8 degrees Fahrenheit 01/26/20 25 Blood pressure systolic 136 mm Hg 01/26/20 25 Blood pressure diastolic 82 mm Hg 025 Heart Rate 85 /min 01/25/2025 Height 62 in 01/25/2025 Weight 211 lbs 01/25/2025 BMI 38.59 kg/m2 01/25/2025 Encounters Encounter Location Date Provider Diagnosis Giuseppe Kumar III, MD [address] [place] [address] [place] [address] 01/25/2025 Giuseppe Kumar Localized osteoarthr itis of left knee M17.12 ; Lumbar radiculopathy, acute M54.16 ; Obesity E66.9 ; Depression F32.9 ; Irritable bowel syndrome K58.9 ; Hyperlipidemia E78.5 and Type 2 diabetes mellitus without complication, without long-term current use of insulin E11.9 Assessments Encounter Date Diagnosis (ICD Code) Assessment Notes Treat ment Notes Treatment Clinical Notes 01/25/2025 Localized osteoarthritis of left knee (ICD-10 - M17.12) Her left knee has healed well after surgery and is much less painful. He remains under the care of orthopedics. 01/25/2025 Lumbar radiculopathy , acute (ICD-10 - M54.16) Low back pain is mild but present. She is avoiding heavy lifting. 01/25/2025 Obesity (ICD-10 - E66.9) Made a plan to lose weight at a rate of 1 pound per week. We discussed diet and nutrition at length. 01/25/2025 Depression (ICD-10 - F32.9) Her depression is stable and no change in her regimen was made. 01/25/2025 Irritable bowel syndrome (ICD-10 - K58.9) Her abdominal symptoms have been very mild lately 01/25/2025 Hyperlipidemia (ICD-10 - E78.5) Her total cholesterol is within the target range at this time. I have discussed her weight reduction cholesterol low diet with her at length today. We formulated a weight loss strategy. 01/25/2025 Type 2 diabetes mellitus without complication, without long-term current use of insulin (ICD-10 - E11.9) Plan Of Treatment Medication Medication Name Sig Start Date Stop Date Notes Gralise 600 MG 2 tablet Orally Once a day Apple Cider Vinegar - as directed Orally Trospium Chloride 20 MG 1 tablet at bedt celina on an empty stomach Orally twice a day metFORMIN HCl 500 MG TAKE 1 TABLET BY [facility] EVERY DAY WITH A MEAL Pending Test Test Name Order Date PROFILE, FASTING (COMPREHENSIVE METABOLI C) 01/25/2025 LIPID PANEL 01/25/2025 CBC w DIFF 01/25/2025 Hemoglobin A1c 01/25/2025 Next Appt Details Follow Up: As Scheduled, Ann son: OV Provider Name:Giuseppe Kumar , 08/03/2025 09:30:00 AM, [address] [place] [address] , [address], [place], [address], Progress Notes * Lin JOHNSON LDOB: 5 (60 yo F)Acc No.[id number]:01/25/2025 Progress Notes Patient: Lin KRAFT Provider: Gi Kumar MD :1965 A ge:59 Y S ex:Female Date:01/25/2025 Address:[address] [place], [place] [id number] Subjective: * Chief Complaints: * B ack pain since 01-16IBSObesityDepressionLumbar radiculopathyDiabetes * HPI: C OVID-19 Screening: She returns for medical management after 6 weeks. She remains on metformin for her diabetes.? She continues to have low back pain. She has been switched from gralise to gabapentin.The left knee, pain has become very minor. She has an appointment upcoming with the neurosurgeon. Questions H ave you had any new onset fever, chills, cough, congestion, sore throat, shortness of breath, muscle aches? N o * ROS: G eneral/Constitutional: pain L ow back. C hills d enies. F atigue a [...] P ainful joints d enies. S ciatica , affecting both lower sides of the body. W eakness d enies. S kin: Itching d enies. R dwight d enies. S kin lesion(s)?denies. N eurologic: Difficulty speaking d enies. D izziness d enies.?Headache d enies. L ow back pain t hat is new. P sychiatric: Depressed mood w hich is [...] BY MOUTH EVERY DAY WITH A MEAL Medication List reviewed and reconciled with the patientTaking Trospium Chloride 20 MG Tablet 1 tablet at bedtime on an empty stomach Orally twice a day Taking Apple Cider Vinegar - Tablet as directed Orally Taking Gralise 600 MG Tablet 2 tablet Orally Once a day Taking metFORMIN HCl 500 MG Tablet TAKE 1 TABLET BY MOUTH EVERY DAY WITH A MEAL Medication List reviewed and reconciled with the patient * Allergies: B anana ConcentrateSeasonaleno[Allergies Verified] Objective: * Vitals: H t: 62, Wt: 211, BMI:38.59, BP: 136/82, HR: 85, Temp: 98.8, Wt-k.71. * P ast Orders: Imaging:SCREENING COLONOSCOP Y * Performed Date 01/04/2025 Order Date 01/04/2025 09/29/2014 02/27/2022 Result: undefined * Lab:Hemoglobin A1c * Collection Date 12/05/2024 07/31/2024 [...] mg/dL) 46 (Ref Range: >40 mg/dL) * Lab:[facility]. Augie l Fast * Collection Date 12/05/2024 [...] developed, in no acute distress, calm and relaxed: obese: woman. HEAD: a traumatic, normocephalic. EYES: e [...] sounds normal, no ascites, no organomegaly, no mass: centripital obesity. RECTAL EXAM: n ot examined. MUSCULOSKELETAL: e xtremities unremarkable, no clubbing, cyanosis or edema, Loss of range of motion lumbar spine. PERIPHERAL [...] under the care of orthopedics. 3 . O besity - E66.9 N otes :Made a plan to lose weight at a rate of 1 pound per week. We discussed diet and nutrition at length. 4 . D epression - F32.9 N otes :Her depression is stable and no change in her regimen was made. 5 . I rritable bowel syndrome - K58.9 N otes :Her abdominal symptoms have been very mild lately 6 . H yperlipidemia - E78.5 N otes :Her total cholesterol is within the target range at this time. I have discussed her weight reduction cholesterol low diet with her at length today. We formulated a weight loss strategy. 7 . T ype 2 diabetes mellitus without complication, without long-term current use of insulin - E11.9 Plan: * Treatment: 2. O besity L AB: PROFILE, FASTING (COMPREHENSIVE METABOLIC) L AB: LIPID PANEL L AB: CBC w DIFF L AB: Hemoglobin A1c 3. D epression L AB: PROFILE, FASTING (COMPREHENSIVE METABOLIC) L AB: LIPID PANEL L AB: CBC w DIFF L AB: Hemoglobin A1c 4. H yperlipidemia L AB: PROFILE, FASTING (COMPREHENSIVE METABOLIC) L AB: LIPID PANEL L AB: CBC w DIFF L AB: Hemoglobin A1c 5. T ype 2 diabetes mellitus without complication, without long-term current use of insulin L AB: PROFILE, FASTING (COMPREHENSIVE METABOLIC) L AB: LIPID PANEL L AB: CBC w DIFF L AB: Hemoglobin A1c 6. O thers Continue metFORMIN HCl Tablet, 500 [...] without too much effort. T reatment Goals B lood Sugars less than < 115, HbA1C < 7.0. B arriers n o barriers. S elf-Managment Goals W ork on weight loss, with a goal of losing 1 lb per week. * Follow Up: A s Scheduled (Reason: OV) * Images: * Sign off status: Completed true * Provider: Gi Kumar MD Date: 0 01/25/2025 Generated for Printi ng/Lonnieg/eTransmitting on: 08/03/2024 08:18 AM EST History and Physical Notes * HPI (History of Present Illness) Category Sub-Category Detail Notes COVID-19 Screening Questions Have you had any new onset fever, chills, cough, congestion, sore throat, shortness of breath, muscle aches?: No Examination Category Sub-Category Detail Notes General Examination GENERAL APPEARANCE: pleasant , well nourished, well developed, in no acute distress, calm and relaxed: obese: woman HEAD: atraumatic, normocep halic EYES: eomi, perrla, anicte amber, conjugate EARS: normal NOSE: septum intact NECK/THYROID: no jugular venous di stention, no carotid bruit, thyroid normal HEART: no clicks, gallops, murmurs, or rubs, regular rhythm, S1, S2 normal, no s3, or vascular bruits LUNGS: clear to auscultatio n ABDOMEN: bowel sounds normal, no ascites, no organomegaly, no mass: centripital obesity NEUROLOGIC: alert and oriented, cranial nerves 2-12 grossly intact, deep tendon reflexes 2+ symmetrical, motor strength normal upper and lower extremities, sensory exam intact SKIN: no suspicious lesion s, anicteric PERIPHERAL PULSES: normal BREASTS: Not examined MUSCULOSKELETAL: extremities unremark able, no clubbing, cyanosis or edema, Loss of range of motion lumbar spine LYMPH NODES: no enlarged lymph no ector,spleen normal RECTAL EXAM: not examined PSYCH: alert, oriented ORAL CAVITY: normal, unremarkable
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
--- OUTSIDE RECORDS SUMMARY | 2025-06-02 08:18 | XMS_ITS | Patient Health Record ---
Author Organization [facility] Address [address] [place] [address] Care Team Providers Care Fire Management Specialist Name Role Phone Giuseppe Kumar MD Primary Care Provider Unavailab Vinh Perales Unavailable [phone] Reason For Referral No Information Medications Medication [...] Insured Coverage Start Date Coverage End Date [facility] [address] [place] [address] [phone] [id number] Cornel Roque Spouse - patient is the spouse of the insured 6 Medical (General) History Medical History History ICD Code Arthritis Back,Hip,and Knee pain Headaches Reflux ( GERD) Surgical History Surgery Date(Month/Year) back surgery / HERNIA ON L3 , L4 DISC
--- OUTSIDE RECORDS SUMMARY | 2025-06-02 08:19 | XMS_ITS | Patient Health Record ---
Author Organization Giuseppe Kumar III, MD Address [address] [place] [address] Care Team Providers Care [employer] Name Role Phone Dr. Giuseppe Kumar III [...] Panel Reviewed date:11/08/2024 08:18:13 PM Interpretation: Performing Lab:[facility], [address] [place] [address] Notes/Report: Triglycerides 98 <150 mg/dL Desirable Triglyceride: [...] Random Reviewed date:11/08/2024 08:18:13 PM Interpretation: Performing Lab:[address] [address] Notes/Report: Creatinine Urine 120.18 Microalbumin Urine 8.0 Microalbum/Creatinine Ratio Ur 6.6 <30 ug/mg cr Albumin/Creatinine Ratio Reference Ranges: Normal: < 30 ug/mg creatinine Microalbuminuria: 30 - 300 ug/mg creatinine Clinical Albuminuria: > 300 ug/mg creatinine Hemoglobin A1c Reviewed date:11/08/2024 08:18:13 PM Interpretation: Performing Lab:[address] [address] Notes/Report: Hemoglobin A1c % 6.0 <6.0 % [...] average glucose, using the formula of the J3X-Imquymn Average Glucose study (ADAG), Diabetes Care, Vol.31,#8, Jan. 2007 Complete Blood Count Auto Di ff Reviewed date:11/08/2024 08:18:13 PM Interpretation: Performing Lab:[address] [address] Notes/Report: White Blood Count 5.5 4.8-10.8 X10*3/uL [...] NRBC Abs Auto 0.000 0.0-0.012 X10*3/uL Comprehensive [place]. Panel Fa st Reviewed date:11/08/2024 08:18:13 PM Interpretation: Performing Lab:[facility], [address] [place] [phone] Notes/Report: Sodium 141 135-145 mmol/L Potassium 4.4 [...] ff Reviewed date:12/05/2024 02:14:09 PM Interpretation: Performing Lab:[facility], [address] [place] [address] Notes/Report: White Blood Count 5.1 4.8-10.8 X10*3/uL [...] NRBC Abs Auto 0.000 0.0-0.012 X10*3/uL Comprehensive [place]. Panel Fa st Reviewed date:12/05/2024 02:14:09 PM Interpretation: Performing Lab:[facility], [address] [place] [address] Notes/Report: Sodium 139 135-145 mmol/L Potassium 4.6 [...] Panel Reviewed date:12/05/2024 02:14:09 PM Interpretation: Performing Lab:[facility], [address] [place] [address] Notes/Report: Triglycerides 132 <150 mg/dL Desirable Triglyceride: [...] A1c Reviewed date:12/05/2024 02:14:09 PM Interpretation: Performing Lab:[facility], [address] [place] [address] Notes/Report: Hemoglobin A1c % 6.0 <6.0 % [...] average glucose, using the formula of the W2S-Swobqpe Average Glucose study (ADAG), Diabetes Care, Vol.31,#8, Jan. 2007 SCREENING COLONOSCOPY Reviewed date:01/04/2025 09:18:00 AM Interpretation:undefined Performing Lab: Notes/Report: undefined Complete Blood Count Auto Di ff Reviewed date:03/17/2025 10:50:24 AM Interpretation: Performing Lab:[facility], [address] [place] [address] Notes/Report: White Blood Count 6.1 4.8-10.8 X10*3/uL Red Blood Count 4.82 4.20-5.50 X10*6/uL Hemoglobin 13.8 12.0-16.0 g/dl Hematocrit 42.9 37.0-47.0 % Mean Corpuscular Volume 89.0 80.0-98.0 fL Mean Corpuscular Hemoglobin 28.6 27.0-33.0 pg Mean Corpuscular HGB Conc 32.2 31.0-35.0 g/dl Red Cell Distribution Width 13.2 11.0-16.0 % Platelet Count 236 160-400 X10*3/uL Mean Platelet Volume 10.2 9.4-12.3 fL Neutrophils Percent Auto 44.2 45-73 % Imm Gran Pct Auto 0.2 0.0-0.4 % Lymphocytes Percent Auto 44.6 20-40 % Monocytes Percent Auto 8.0 2-11 % Eosinophils Percent Auto 2.0 0-4 % Basophils Percent Auto 1.0 0-2 % NRBC Pct Auto 0.0 0.0-0.2 /100WBC Neutrophils Absolute Auto 2.7 2.0-8.3 x10*3/u L Imm Gran Abs Auto 0.01 0.00-0.03 X10*3/uL Lymphocytes Absolute Auto 2.7 1.2-4.9 X10*3/u L Monocytes Absolute Auto 0.5 0.1-1.2 X10*3/uL Eosinophils Absolute Auto 0.1 0.0-0.4 X10*3/u L Basophils Absolute Auto 0.1 0.0-0.2 X10*3/uL NRBC Abs Auto 0.000 0.0-0.012 X10*3/uL Comprehensive [place]. Panel Fa st Reviewed date:03/17/2025 10:50:24 AM Interpretation: Performing Lab:[facility], [address] [place] [address] Notes/Report: Sodium 141 135-145 mmol/L Potassium 4.3 3.3-5.1 mmol/L Chloride 107 96-108 mmol/L Carbon Dioxide 27 22-29 mmol/L Anion Gap 11 12-20 Blood Urea Nitrogen 14 9-16 mg/dL Creatinine 0.73 0.5-1.4 mg/dL Estimated Glomerular Filt Rate > 60 Chronic Kidney Disease: Estimated GFR < 60 mL/min/1.73m2 Severe Kidney Disease: Estimated GFR < 15 mL/min/1.73m2 Glucose Fasting 100 60-99 mg/dL A fasting glucose from 100-125 mg/dl is considered impaired (pre-diabetes). Calcium 8.9 8.4-10.2 mg/dL Bilirubin Total 0.6 0.0-1.0 mg/dL Aspartate Amino Transferase 25 5-31 U/L Alanine Aminotransferase 31 0-31 U/L Total Protein 7.2 6.5-8.0 g/dL Albumin Level 4.2 3.5-5.0 g/dL Alkaline Phosphatase 65 39-117 U/L Lipid Panel Reviewed date:03/17/2025 10:50:24 AM Interpretation: Performing Lab:[facility], [address] [place] [address] Notes/Report: Triglycerides 115 <150 mg/dL Desirable Triglyceride: less than 150 mg/dL Borderline High Triglyceride 150-199 mg/dL High Triglyceride: 200-499 mg/dL Very High Triglyceride: greater than or equal to 5OO mg/dL Cholesterol 188 <200 mg/dL Desirable Cholesterol: less than 200 mg/dL Borderline High Cholesterol: 200-239 mg/dL High Cholesterol: greater than 239 mg/dL LDL Cholesterol Calculated 127 <100 mg/dL Desirable LDL: less than 100 mg/dL Near Optimal/Above Optimal LDL: 110-129 mg/dL Borderline High LDL: 130-159 mg/dL High LDL: 160-189 mg/dL Very High LDL: greater than or equal to 190 mg/dL HDL Cholesterol 38 >40 mg/dL Desirable HDL: greater than 40 mg/dL Note: This HDL assay may give artificially low results in patients with liver disease. Hemoglobin A1c Reviewed date:03/17/2025 10:50:24 AM Interpretation: Performing Lab:[facility], [address] [place] [address] Notes/Report: Hemoglobin A1c % 6.1 <6.0 % [...] average glucose, using the formula of the T4T-Zscmrtr Average Glucose study (ADAG), Diabetes Care, Vol.31,#8, 2007 Reason For Referral Reason over due for her col onoscopy Has been seen in the past Diagnosis 1 Encounter for screen ing for malignant neoplasm of colon (Z12.11) Referral Organization Giuseppe Kumar III, MD Referring Provider First Name Giuseppe Referring Provider Last Name José Referring Provider Speciality Internal M edicine Referred Provider [facility], Gastroenterology Referred Provider Specialty Gastroentero logy General Notes Harmony Bucio CMA 08/03 04:50:11 PM > ref/demo/progress note faxed to [facility], Harmony Bucio CMA 08/18/2024 03:10:59 PM >Called [facility] they have referral and will be calling patient within the next few weeks to set up colonscopy, Harmony Bucio CMA 08/27/2024 02:09:02 PM >Called [facility] they have not called patient as of yet for appt they will put in a note to have the confectionery laboratory manager to call her with appt, Harmony Bucio CMA 10/05/2024 02:45:51 PM > valled [facility] they stated they have not called pt as of yet will send another message to confectionery laboratory manager to set pt up for appt, Ramona [...] Speciality Internal M edicine Referred Provider Eye Dotty Rubio Referred Provider Specialty Ophthalmolog y, Cataracts General Notes Harmony Bucio CMA 08/03 04:51:28 PM >ref/demo/progress note/labs [facility], Harmony Bucio CMA 08/10/2024 02:14:38 PM >[facility] pt has appt on 08/24/[address] De Jesus in [place] . Referral Priority Routine Referral Appointment Date [...] UTH EVERY DAY WITH A MEAL Active Immunizations [...] Problem Status W/U Status Risk Notes Problem 5317603 Former smoker (Z87.891) Active confirmed She has a plan to prevent relapse in times of stress or illness. Problem 43712087 Hyperlipidemia (E78.5) Active confirmed The current fasting lipid profile shows she is within target. Her lipids are well controlled. No change in her regimen was needed today. Problem Obesity (954110988) Obesity (E66.9) Active confirmed She has gained 2 pounds in her body mass index is 38.9. Her weight is 213. We have reviewed her diabetic diet and made a plan to lose weight through diet restricted in fat calories and sodium carbohydrates and concentrated sweets. Problem 85412493 Depression (F32.9) Active confirmed Her depression is stable and in remission. She is compliant with all of her recent medication. Problem 36331401 Irritable bowel syndrome (K58.9) Active confirmed Her abdomin al symptoms have been very mild lately Problem 2711054945 Acute pain of left knee (M25.562) Active confirmed Problem Cataract (129076533) Cataract (H26.9) Active confirmed She paola l need cataract surgery in the near future. She will be given medical clearance without difficulty. She was instructed on how to arrange this. Problem 287772025 Panic attacks (F41.0) Active confirmed She is taking 20 mg of fluoxetine daily doing well. She feels much better and is functioning normally. Problem 823802475 Lumbar radiculopathy, acute (M54.16) Active confirmed Low back pain is mild but present. She is avoiding heavy lifting. Problem 99466108 Type 2 diabetes mellitus without complication, without long-term current use of insulin (E11.9) Active confirmed She is compliant with her medication. Her hemoglobin A1c is 6.1. No change in her medication was made. She is encouraged to lose weight. Problem 252644304 Acute left-sided low back pain without sciatica (M54.50) Active confirmed Her pain has become milder and she is able to conduct all of the activities of daily life. Problem 550584810837587 Localized osteoarthritis of left knee (M17.12) Active confirmed Her left knee has healed well after surgery and is much less painful. She remains under the care of orthopedics. Vital Signs Heart Rate 79 /min 03/19/2025 Temperature 97.9 degrees Fahrenheit 03/19/2025 Blood pressure diastolic 84 mm Hg 03/19/2025 Height 62 in 03/19/2025 Blood pressure systolic 138 mm Hg 03/19/2025 Weight 213 lbs 03/19/2025 BMI 38.95 kg/m2 03/19/2025 Encounters Encounter Location Date Provider Diagnosis Giuseppe Kumar III, MD [address] [place] [address] [place] [address] 07/30/2024 Giuseppe Kumar Localized osteoarthr itis of left knee M17.12 ; Lumbar radiculopathy, acute M54.16 ; Panic attacks F41.0 ; Hyperlipidemia E78.5 ; Depression F32.9 ; Type 2 diabetes mellitus without complication, without long-term current use of insulin E11.9 ; Obesity E66.9 and Acute left-sided low back pain without sciatica M54.50 Giuseppe Kumar III, MD [address] [place] [address] [place] [address] 12/16/2024 Giuseppe Kumar Obesity E66.9 ; Lumb ar radiculopathy, acute M54.16 ; Localized osteoarthritis of left knee M17.12 ; Hyperlipidemia E78.5 ; Irritable bowel syndrome K58.9 ; Depression F32.9 and Type 2 diabetes mellitus without complication, without long-term current use of insulin E11.9 Giuseppe Kumar III, MD [address] [place] [address] [address] [place] [address] 01/25/2025 Giuseppe Kumar Localized osteoarthr itis of left knee M17.12 ; Lumbar radiculopathy, acute M54.16 ; Obesity E66.9 ; Depression F32.9 ; Irritable bowel syndrome K58.9 ; Hyperlipidemia E78.5 and Type 2 diabetes mellitus without complication, without long-term current use of insulin E11.9 Giuseppe Kumar III, MD [address] [place] [address] [address] [place] [address] 03/19/2025 Giuseppe Kumar Localized osteoarthr itis of left knee M17.12 ; Type 2 diabetes mellitus without complication, without long-term current use of insulin E11.9 ; Hyperlipidemia E78.5 ; Depression F32.9 ; Obesity E66.9 ; Irritable bowel syndrome K58.9 ; Lumbar radiculopathy, acute M54.16 and Former smoker Z87.891 Assessments Encounter Date Diagnosis (ICD Code) Assessment Notes Treat ment Notes Treatment Clinical Notes 07/30/2024 Lumbar radiculopathy , acute (ICD-10 - [...] He remains under the care of orthopedics. 03/19/2025 Type 2 diabetes mellitus without complication, without long-term current use of insulin (ICD-10 - E11.9) She is compliant with her medication. Her hemoglobin A1c is 6.1. No change in her medication was made. She is encouraged to lose weight. 03/19/2025 Localized osteoarthritis of left knee (ICD-10 - M17.12) Her left knee has healed well after surgery and is much less painful. She remains under the care of orthopedics. 07/30/2024 Panic attacks (ICD-1 0 - F41.0) [...] We discussed diet and nutrition at length. 03/19/2025 Hyperlipidemia (ICD-10 - E78.5) The current fasting lipid profile shows she is within target. Her lipids are well controlled. No change in her regimen was needed today. 07/30/2024 Hyperlipidemia (ICD-10 - E78.5) The current [...] no change in her regimen was made. 03/19/2025 Depression (ICD-10 - F32.9) Her depression is stable and in remission. She is compliant with all of her recent medication. 07/30/2024 Depression (ICD-10 - F32.9) Her depression is stable and no change in her regimen was made. 12/16/2024 Irritable bowel syndrome (ICD-10 - K58.9) Her abdominal symptoms have been very mild lately 01/25/2025 Irritable bowel syndrome (ICD-10 - K58.9) Her abdominal symptoms have been very mild lately 03/19/2025 Obesity (ICD-10 - E66.9) She has gained 2 pounds in her body mass index is 38.9. Her weight is 213. We have reviewed her diabetic diet and made a plan to lose weight through diet restricted in fat calories and sodium carbohydrates and concentrated sweets. 07/30/2024 Type 2 diabetes mellitus without complication, [...] today. We formulated a weight loss strategy. 03/19/2025 Irritable bowel syndrome (ICD-10 - K58.9) Her abdominal symptoms have been very mild lately 07/30/2024 Obesity (ICD-10 - E66.9) Her body [...] current use of insulin (ICD-10 - E11.9) 03/19/2025 Lumbar radiculopathy , acute (ICD-10 - M54.16) Low back pain is mild but present. She is avoiding heavy lifting. 07/30/2024 Acute left-sided low back pain without sciatica (ICD-10 - M54.50) Her pain has become milder and she is able to conduct all of the activities of daily life. 03/19/2025 Former smoker (ICD-1 0 - Z87.891) She has a plan to prevent relapse in times of stress or illness. Plan Of Treatment Pending Test Test Name Order Date PROFILE, FASTING (COMPREHENSIVE METABOLI C) 02/23/2020 PROFILE, FASTING (COMPREHENSIVE METABOLI C) 03/11/2023 PROFILE, FASTING (COMPREHENSIVE METABOLI C) 10/24/2022 PROFILE, FASTING (COMPREHENSIVE METABOLI C) 01/01/2018 PROFILE, FASTING (COMPREHENSIVE METABOLI C) 06/07/2023 PROFILE, FASTING (COMPREHENSIVE METABOLI C) 03/19/2025 PROFILE, FASTING (COMPREHENSIVE METABOLI C) 03/08/2021 PROFILE, [...] CBC w DIFF 02/23/2020 CBC w DIFF 03/19/2025 CBC w DIFF 01/01/2018 CBC w DIFF [...] Panel 07/19/2023 Lipid Panel 12/16/2024 Lipid Panel 03/19/2025 Lipid Panel 04/23/2024 Lipid Panel 12/20/2023 Microalbumin, Random 04/23/2024 Microalbumin, Random 12/20/2023 Microalbumin, Random 07/19/2023 Microalbumin, Random 03/19/2025 Hemoglobin A1c 03/19/2025 Hemoglobin A1c 01/25/2025 Hemoglobin A1c 12/01/2020 Hemoglobin A1c 04/23/2024 Hemoglobin A1c 12/20/2023 Hemoglobin A1c 07/19/2023 Hemoglobin A1c 12/16/2024 Next Appt Details Provider Name:Giuseppe Kumar , 08/03/2025 09:30:00 AM, [address] [place] [address] [address], [place], [address], Insurance Providers Payer Name Payer Address Payer Phone Subscriber Number Group Number Insured Name Patient Relationship to Insured Coverage Start Date Coverage End Date [facility] [address] [place], [place] [phone] [id number] 01 Lin Johnson Self - patient is [...]
--- OUTSIDE RECORDS SUMMARY | 2025-06-02 08:19 | XMS_ITS | Patient Health Record ---
Author Organization [facility] Address [address] [place] [address] Care Team Providers Care Telemarketing Fundraiser Name Role Phone SHANITA HUBER MD Primary Care Provider Unavailab Kristina Reyes Unavailable [phone] Allergies No Known Allergies Results Component Value Reference Range Notes PDF Report Reviewed date:07/09/2024 06:26:09 PM Interpretation: Performing Lab:[facility], [address], [address], [employer], Phone - [phone], Director - [facility] Notes/Report: Clinical Information:Vaginal/Cervical, LMP: Men o [id number] LMP / Prev Treat...[id number] Dates / Results....06/07/22 NIL, Neg HPV Other..............Post Menopausal No. of containers..01 ThinPrep Vial [id number] [id number] No Culture 30 Plus Reviewed date:07/09/2024 06:26:29 PM Interpretation: Performing Lab:[facility], [address], [employer], Phone - [phone], Director - [facility] Notes/Report: Clinical Information:Vaginal/Cervical, LMP: Men o [id number] LMP / Prev Treat...[id number] Dates / Results....06/07/22 NIL, Neg HPV Other..............Post Menopausal No. of containers..01 ThinPrep Vial DIAGNOSIS: NEGATIVE FOR IN TRAEPITHELIAL LESION OR MALIGNANCY. Specimen adequacy: Satisfactory for evaluation. Endocervical and/or squamous metaplastic cells (endocervical component) are present. Clinician provided ICD10: Z0 1.419 Performed by: Kell james, Public Service Representative (ASCP) . . Note: The Pap smear [...] Criteria not met, HPV Genotype not performed. Urinalysis Reviewed date:07/08/2024 09:07:00 AM Interpretation: Performing Lab: Notes/Report: PH 5.0 PROTEIN Neg GLUCOSE Neg BLOOD Neg Reason For Referral No Information Medications Medication [...] W/U Status Risk Notes Problem Urinary incontinence (415920462) Unspecified urinary incontinence (R32) Active confirmed Problem Morbid obesity (disorder) (755128842) Morbid (severe) obesity due to excess calories (E66.01) Active confirmed Problem Disorder of breast (33207440) Disorder of breast, unspecified (N64.9) Active confirmed Problem Unspecified menopausal and perimenopausal disorder (N95.9) Active confirmed Problem Menopause (012835491) Menopausal and female climacteric states (N95.1) Active confirmed Problem Esophageal reflux (376140713) Esophageal reflux (530.81) Active confirmed Major Problem Irritable bowel syndrome (46410511) Irritable bowel syndrome (564.1) Active confirmed Major Problem Gynecological examination normal (325373701369439) Routine gynecological examination (V72.31) Active confirmed Major Vital Signs Temperature 97.4 degrees Fahrenheit 07/08/2024 Blood pressure diastolic 78 mm Hg 07/08/2024 Height 61 in 07/08/2024 Blood pressure systolic 116 mm Hg 07/08/2024 Weight 216 lbs 07/08/2024 BMI 40.81 kg/m2 07/08/2024 Encounters Encounter Location Date Provider Diagnosis [address] [place] [address] 07/08/2024 Kristina Hargrove Encounter for gynecological examination [...] Provider Name:Kristina casanova, 07/12/2025 08:40:00 AM, [address], [address], [place], [address], Insurance Providers Payer Name Payer Address Payer Phone Subscriber Number Group Number Insured Name Patient Relationship to Insured Coverage Start Date Coverage End Date [employer] [place] [address] [place] [address] [phone] [id number] RENETTA JOHNSON Spouse - patient is the [...]
== END 2025-06-02 08:15 | disposition home or self-care (01) ==
LOC: HO.MAMMO 08:14
PROVIDERS: PCP Internal Medicine Medical Oncology; Visit Provider Internal Medicine Medical Oncology
DX: Z12.31 Encounter for screening mammogram for malignant neoplasm of breast (principal)
CPT/HCPCS: 77063; 77067

== ENCOUNTER → 2025-06-02 08:15 | Outpatient (BNV) | payer BC, SELFPAY | PROVIDERS: PCP Internal Medicine Medical Oncology; Visit Provider Radiology Body Imaging | DX: Z12.31 Encounter for screening mammogram for malignant neoplasm of breast (principal) | CPT/HCPCS: 77063; 77067 ==